=== PATIENT | female | born 1955 | race Caucasian/White ===

== ENCOUNTER → 2016-09-30 | Outpatient (CLI) | payer OTHER | END | disposition home or self-care (01) | LOC: LABPAT 12:52 | PROVIDERS: ATTEND Orthopaedic Surgery | DX: Z01.812 Encounter for preprocedural laboratory examination (principal) | CPT/HCPCS: 87070 ==

== ENCOUNTER 2016-10-19 08:00 | Inpatient (IN) | payer OTHER ==
[2016-10-26 11:53] VITALS: BMI 36.6
--- NOTE | 2016-11-01 17:28 | HP ---
DATE OF ADMISSION: 11/02/2016 CHIEF COMPLAINT: Left knee pain. HISTORY OF PRESENT ILLNESS: The patient is a 61-year-old female who has severe rheumatoid arthritis who presents with progressive left knee pain despite extensive conservative measures. She is using a cane. She notes her pain limits her normal function and activities. Past medical history is significant for rheumatoid arthritis, hypertension. Past surgical history is significant for: 1. Right patellar fracture fixation. 2. Right total knee arthroplasty. 3. Bilateral total hip arthroplasty. CURRENT MEDICATIONS: 1. Arava. 2. Ibuprofen. 3. Remicade. SHE DENIES DRUG ALLERGIES. FAMILY HISTORY: Significant for cancer. SOCIAL HISTORY: Negative for current tobacco or alcohol use. Sixteen-point review of systems otherwise reviewed and is noncontributory. On examination, the patient is approximately 5 feet 2 inches, 200 pounds of endomorphic habitus. HEENT exam is nonfocal. Neck is supple. She is nontender about the lumbar spine. She has painless passive motion of the left hip. Tcgegloz-jfa-fnleg is negative. Active motion of the left knee minus 10 to 85 degrees of flexion. She has a moderate effusion. Collaterals are stable, Maverick's negative. Vicki's is equivocal. She is tender about the medial joint line. Her distal neurovascular exam appears be intact in the left lower extremity. Previous x-rays of the left knee obtained in the office show severe medial compartment narrowing. IMPRESSION: Left knee severe rheumatoid arthritis. RECOMMENDATIONS: I talked to the patient at length regarding her treatment options. At this point she opts to proceed with surgery. We will plan to proceed with left total knee arthroplasty. She underwent preoperative medical evaluation by Dr. Don. We will institute DVT prophylaxis postoperatively.
[2016-11-02] MEDS ORDERED: ACETAMINOPHEN TAB 500 MG TAB PO ONE (05:00)
[2016-11-02] MEDS ORDERED: ceFAZolin 2 GM in SODIUM CHLORIDE 0.9% 100 ML IVPB ONE (05:00)
[2016-11-02] MEDS ORDERED: TRANEXAMIC ACID 1,000 MG in SODIUM CHLORIDE 0.9% 100 ML IVPB ONE ×4 (05:00)
[2016-11-02] MEDS ORDERED: MELOXICAM 7.5 MG TAB PO ONE (05:00)
[2016-11-02] MEDS ORDERED: HYDROmorphone 1 MG/ML 1 ML SYRINGE IVP PRN ×3 (05:34→18:06)
[2016-11-02] MEDS ORDERED: ONDANSETRON 4 MG/2 ML VIAL IVP ONE (05:34)
[2016-11-02] MEDS ORDERED: MIDAZOLAM 2 MG/2 ML VIAL IV PRN (05:34)
[2016-11-02] MEDS ORDERED: DEXAMETHASONE SOD PHOSPHATE 10 MG/ML 1 ML VIAL IV ONE (05:34)
[2016-11-02] MEDS ORDERED: LIDOCAINE 1% 20 ML VIAL (10MG/ML) FOR IV START INTRADERMA PRN (05:34)
[2016-11-02] MEDS ORDERED: FAMOTIDINE 20 MG/2 ML VIAL IV PRN (05:34)
[2016-11-02] MEDS: LACTATED RINGERS 1,000 ML IV SCH (14:14)
[2016-11-02 14:16] VITALS: RESP 16
[2016-11-02] MEDS ORDERED: ROPIVACAINE 1,100 MG, SODIUM CHLORIDE 0.9% 330 ML MISCELLANE PRN ×2 (15:02)
--- NOTE | 2016-11-02 15:04 | P.ONQ ---
Anesthesiology Proc Note - PNB - Peripheral Nerve Block Performed Left Adductor Canal Infusion Time Out Performed: Yes Procedure Start Time: 14:50 Procedure Stop Time: 15:00 Indication: Acute Post-Operative Pain, Requested by physician Sedation Type: Awake Preparation: Sterile Dressing Position: Supine Needle Size: 100mm (4") Needle Gauge: 21 Technique: Ultrasound Injectate: 0.5% Ropivacaine (see comment for volume) (ropi .5% 15cc) Blood Aspirated: No Pain Paresthesia on Injection Noted: No Resistance on Injection: Normal Events: Uneventful and Well Tolerated
[2016-11-02] MEDS ORDERED: ROPIVACAINE 246.25 MG, EPINEPHrine 0.5 MG, KETOROLAC 30 MG, cloNIDine HCL/PF 80 MCG, WA... MISCELLANE ONE ×5 (15:40)
[2016-11-02] MEDS ORDERED: PROPOFOL 10 MG/ML 20 ML VIAL IV ONE (16:28)
[2016-11-02] MEDS ORDERED: MIDAZOLAM 2 MG/2 ML VIAL ONE (16:28)
[2016-11-02] MEDS ORDERED: fentaNYL (PF) 50 MCG/ML 2 ML AMP ONE (16:28)
[2016-11-02] MEDS ORDERED: SODIUM CHLORIDE 0.9% 100 ML BAG ONE (16:28)
[2016-11-02] MEDS ORDERED: TRANEXAMIC ACID 1,000 MG/10 ML VIAL ONE (16:28)
[2016-11-02] MEDS ORDERED: ceFAZolin 3,000 MG in SODIUM CHLORIDE 0.9% IRRIGATIO 3,000 ML IRRIGATION ONE (16:59)
[2016-11-02] MEDS ORDERED: LACTATED RINGERS 1,000 ML IV ONE ×2 (17:22)
[2016-11-02] MEDS ORDERED: MAGNESIUM HYDROXIDE 2,400 MG/10 ML CUP PO PRN (18:06)
[2016-11-02] MEDS ORDERED: NALOXONE 0.4 MG/ML 1 ML VIAL IV PRN (18:06)
[2016-11-02] MEDS ORDERED: ONDANSETRON 4 MG/2 ML VIAL IVP PRN (18:06)
[2016-11-02] MEDS ORDERED: traMADol 50 MG TAB PO PRN (18:06)
[2016-11-02] MEDS ORDERED: HYDROcodone/APAP 7.5-325MG 1 EACH TAB PO PRN (18:06)
--- NOTE | 2016-11-02 18:37 | P.OP ---
Date of Procedure: 11/02/16 Preoperative Diagnosis: Left knee severe rheumatoid arthritis-tricompartmental Postoperative Diagnosis: Same Procedure(s) Performed: Left total knee eeyrhvsufutn-vquygmht-rhtgghlp retaining Implants: Depuy Attune size 5 cemented femoral component, size 4 cemented tibial component , 9 mm articular surface, 29 mm cemented patellar component. Anesthesia: regional, local, spinal Surgeon: Tony Moreno Special Delivery Messenger #1: Adeel Gary Estimated Blood Loss (ml): 75 Pathology: other (Bone fragments) Condition: stable Disposition: PACU Indications for Procedure: The patient's a 61-year-old female with rheumatoid arthritis who presents with persistent progressive left knee pain despite conservative measures. A discussion of the risks and benefits of operative intervention versus continued conservative measures was made with patient. She opted to proceed with surgery. Operative risks to include infection, neurovascular injury, development of blood clots, possible component loosening, possible component failure and need for subsequent procedures was discussed with the patient. Informed consent was obtained. Operative Findings: Severe synovitis/arthritis Description of Procedure: The patient was brought to the operating room, and after induction of spinal anesthesia the left lower extremity was prepped and draped in normal fashion. The tourniquet was inflated to 270 mmHg. A longitudinal incision extending 3 finger breaths above the superior pole of patella extending to the medial aspect of the tibial tubercle was then made. The skin and subcutaneous tissues were divided sharply. Electrocautery was used for hemostasis. The medial soft tissues to include the superficial and deep portions of the medial collateral ligament were elevated subperiosteally. The patella was everted. A portion of the retropatellar fat pad was excised sharply. The knee was then flexed. A starting hole was made in the distal femur 1 cm anterior to the posterior cruciate ligament origin. An intramedullary guide was gently inserted planning on a 5 valgus distal cut with 9 mm distal resection. The cutting block was pinned in place. The distal cut was then made. The posterior referencing sizing guide was utilized. A felt size 5 was most appropriate. 3 of external rotation was built into the system and was verified off the trans-epicondylar axis and the posterior condyles. The cutting block was pinned in place. The anterior, posterior, and chamfer cuts were made. The bone fragments were removed. The notch cut was then made with the appropriate guide. A trial size 5 femoral component was placed and had good anterior to posterior and medial to lateral fit. The distal peg holes were drilled. The trial component was removed. Attention was then paid towards preparing the proximal tibia. An extra medullary guide was utilized in line with the tibial shaft and second metatarsal distally. I planned on 7 posterior slope. I planned on 6 mm resection from the medial compartment. The cutting block was pinned in place. The proximal tibial cut was made while protecting the posterior cruciate ligament. Bone was removed in one fragment. The remnants of the medial and lateral menisci were excised the capsule junction with electrocautery. The tibia sized most appropriate size 4. The trial femoral and tibial components were placed along with a 9 mm articular surface. I was able to obtain full flexion and extension with good stability with varus and valgus stress. After several flexion and extension cycles the tibial rotation was marked with electrocautery in line with the medial one third of the tibial tubercle. Attention was then paid towards preparing the patella. A patella reamer was utilized taking this down to 14 mm of bone stock. A good flush cut was made. The patella sized most appropriately 29 mm. The pedicles were drilled. The trial component was placed. The knee was taken through range of motion. I good patellofemoral tracking with no hands technique. The trial components were then removed. The flexion and extension gaps were checked and felt to be symmetric. The tibia was prepared in the appropriate rotation with the appropriate drill and keel punch. The bony surfaces were prepared with pulsatile lavage and dried. Ropivacaine was injected the posterior capsule. The tibial component was cemented in placed and was fully seated. Excess cement was removed. The femoral component was cemented in placed and was fully seated. Excess cement was removed. The trial 9 mm articular surface was placed and the knee was put in full extension. The patella component was cemented in place. Pulsatile lavage was again utilized. After the cement had sufficiently hardened, the knee was taken through range of motion felt to be stable in flexion and extension with varus and valgus stress. The trial 9 mm articular surface was removed and the final one inserted. This was fully seated. Care was taken to avoid soft tissue interposition. The medial parapatellar arthrotomy was closed with #2 Ethibond suture. A deep drain was placed exiting laterally. The tourniquet was deflated with approximate a 70 minutes total tourniquet time. The subcutaneous tissues were reapproximated with interrupted 2-0 Vicryl sutures. The skin was reapproximated with 3-0 subcuticular strata fix suture. Skin tape and adhesive was applied. A sterile dressing was applied. The patient was awoken from sedation and transferred to recovery room in good condition. Blood loss was estimated at 75 mL. No complications were incurred. Sponge and needle counts were correct at the end the case.
--- NOTE | 2016-11-02 19:51 | XR ---
EXAMINATION TYPE: XR knee limited LT DATE OF EXAM: 11/02/2016 7:16 PM COMPARISON: NONE HISTORY: Postoperative TECHNIQUE: AP and crosstable lateral images FINDINGS: Postoperative changes appreciated, no unexpected radiopaque foreign bodies. TKR appears osiel tomic. Bones and joints and soft tissues otherwise unremarkable. IMPRESSION: Postoperative study.
[2016-11-02] MEDS: HYDROcodone/APAP 7.5-325MG 1 EACH TAB PO PRN (22:33)
[2016-11-02] MEDS: SENNOSIDES-DOCUSATE SODIUM 1 EACH TAB PO SCH (22:33)
[2016-11-03] MEDS: ceFAZolin 2 GM in SODIUM CHLORIDE 0.9% 100 ML IVPB SCH ×2 (00:47→09:20)
[2016-11-03] MEDS: LACTATED RINGERS 1,000 ML IV SCH (00:53)
[2016-11-03] MEDS: HYDROcodone/APAP 7.5-325MG 1 EACH TAB PO PRN ×3 (07:33→19:14)
[2016-11-03 08:06] LABS: Basophils % (A) 0 %; CH 26.7; CHCM 30.2; Eosinophils % (A) 0 %; HCT 33.7 % (34.0-46.0); HDW 2.38; HGB 10.6 gm/dL (11.4-16.0); Hypochromasia Moderate; Luc # (Auto) 0.32; Luc % (Auto) 3; Lymphocytes # (A) 0.9 k/uL (1.0-4.8); Lymphocytes % (A) 8 %; MCH 27.9 pg (25.0-35.0); MCHC 31.4 g/dL (31.0-37.0); MCV 88.8 fL (80.0-100.0); Mean Platelet Volume 6.5; Monocytes # (A) 0.7 k/uL (0-1.0); Monocytes % (A) 6 %; Neutrophils # (A) 9.6 k/uL (1.3-7.7); Neutrophils % (A) 83 %; RDW 14.9 % (11.5-15.5); WBC 11.6 k/uL (3.8-10.6); WBC (Perox) 11.73
[2016-11-03] MEDS: FAMOTIDINE 20 MG TAB PO SCH (09:20)
[2016-11-03] MEDS: RIVAROXABAN 10 MG TAB PO SCH (09:20)
--- NOTE | 2016-11-03 09:27 | P.PN ---
Subjective pod 1; on q pump intact; catheter system in place; comfortable Objective - Vital Signs Vital signs: Vital Signs Temp 97 F L 11/03/16 07:00 Pulse 78 11/03/16 07:00 Resp 16 11/03/16 07:00 BP 115/56 11/03/16 07:00 Pulse Ox 94 L 11/03/16 07:00 Intake & Output 11/02/16 11/03/16 11/03/16 18:59 06:59 18:59 Intake Total 1801 500 Output Total 315 400 Balance 1486 100 Intake: IV 1801 Oral 500 Output: Urine 240 400 Uretheral (Schwartz) 400 Estimated Blood Loss 75 Other: Voiding Method Indwelling Catheter - Labs CBC & Chem 7: 11/03/16 07:18 Labs: Abnormal Lab Results - Last 24 Hours (Table) 11/03/16 Range/Units 07:18 WBC 11.6 H (3.8-10.6) k/uL Hgb 10.6 L (11.4-16.0) gm/dL Hct 33.7 L (34.0-46.0) % Neutrophils # 9.6 H (1.3-7.7) k/uL Lymphocytes # 0.9 L (1.0-4.8) k/uL
--- NOTE | 2016-11-03 11:38 | P.PN ---
Subjective Principal diagnosis: Status post left total knee arthroplasty Patient seen today resting in her hospital bed, she appears to be in no acute distress. She's not been up with physical therapy at this point. Her pain is well-controlled at this time. She denies any headaches, lightheadedness, chest pain. Objective - Vital Signs Vital signs: Vital Signs Temp 97 F L 11/03/16 07:00 Pulse 78 11/03/16 07:00 Resp 16 11/03/16 07:00 BP 115/56 11/03/16 07:00 Pulse Ox 94 L 11/03/16 07:00 Intake & Output 11/02/16 11/03/16 11/03/16 18:59 06:59 18:59 Intake Total 1801 500 Output Total 315 400 200 Balance 1486 100 -200 Intake: IV 1801 Oral 500 Output: Urine 240 400 200 Uretheral (Schwartz) 400 200 Estimated Blood Loss 75 Other: Voiding Method Indwelling Catheter - Exam Left lower extremity: Incision is clean, dry and intact. There is dried blood noted at the distal and the incision on the bandage. Anterior posterior compression of the upper leg are soft, calf is supple, no tenderness with palpation. Sensory exam light touch throughout the extremity is intact. Plantar flexion, dorsiflexion, EHL, FHL are intact. Dorsal pedis pulses 2+ - Labs CBC & Chem 7: 11/03/16 07:18 Labs: Abnormal Lab Results - Last 24 Hours (Table) 11/03/16 Range/Units 07:18 WBC 11.6 H (3.8-10.6) k/uL Hgb 10.6 L (11.4-16.0) gm/dL Hct 33.7 L (34.0-46.0) % Neutrophils # 9.6 H (1.3-7.7) k/uL Lymphocytes # 0.9 L (1.0-4.8) k/uL Assessment and Plan Plan: Assessment: 1. Postop day #1 status post left total knee arthroplasty Plan: 1. Pain control, continue supportive oral medication 2. Discontinue urinary catheter 3. Continue work with therapy/CPM use 4. Daily dressing changes/ice and elevate 5. GI and DVT prophylaxis, continue current medication 6. Medical recommendations 7. Discharge planning: Patient will be likely discharged home tomorrow Time with Patient: Less than 30
--- NOTE | 2016-11-03 11:43 | P.DS ---
Providers Date of admission: 11/02/16 13:09 Expected date of discharge: 11/04/16 Attending physician: Tony Moreno Consults: 11/02/16 18:06 Consult Physician Routine Consulting Provider: Natalie Umanzor Consult Reason/Comments: Medical Management Do you want consulting provider notified?: Yes Primary care physician: Sina [facility] Hospital Course: Date of admission: 11/02/2016 Date of discharge: 11/04/2016 Admission diagnosis: Status post left total knee arthroplasty Discharge diagnosis: Same Attending physician: Dr. Moreno Surgical procedures: Left total knee arthroplasty Brief history: Patient is a 61-year-old female with a history of progressive rheumatoid arthritis. At this point patient has failed conservative outpatient treatment and was scheduled for an elective left total knee arthroplasty. Hospital course: Details of patient's surgery can be found in operative report. Patient tolerated the procedure well and was subsequently transported to orthopedic floor. Patient's orthopeidc and medical care was provided daily. Patient had daily laboratory tests performed for evaluation of overall blood counts. Patient had daily physical therapy to include strengthening range of motion as well as education with walker ambulation. Patient was treated with Xarelto for their postoperative DVT prophylaxis during their inpatient stay. Patient was noted to have a relatively uneventful postoperative course. Patient reported satisfactory pain control with oral pain medications by postoperative day 0. Patient showed satisfactory progress with physical therapy. Patient moved steadily through the program and had no difficulty meeting the goals by postoperative day 2. Given patient's otherwise satisfactory course and having met physical therapy goals, plan is to discharge patient home on postoperative day 2. Discharge condition/disposition: Patient will be discharged home in stable condition. Discharge medications: Instructions are given on resumption of patient's normal daily medications per primary care recommendation, in addition patient will be prescribed [place] 7.5 mg/325 mg, Colace 100 mg, Pepcid 20 mg, Xarelto 10 mg. Discharge instructions: 1. Wound care and infection precautions, keep incision dry and covered while showering, no lotions, creams, moisturizers. No soaking, tubs, pools, hottubs. Do not scrub over the incision. 2. Weight-bear as tolerated with walker / cane until follow-up. 3. Ice and elevate when necessary. Do not exceed 20 minutes per hour with ice pack. 4. Utilize compression sleeve until seen at first follow up appointment. 5. Visiting nursing care. 6. Home physical therapy including home CPM. 7. Pain meds and anticoagulants per prescription. 8. Pain medication has potential to cause constipation. Increase oral fluid and fiber intake. Contact primary care provider if you have not had a bowel movement within 48 hours after discharge 9. No anti-inflammatory medication until discussed at first post operative visit, this including Motrin, Aleve, Mobic, Diclofenac. 10. Follow up in office at 2 weeks postop with Trent Gary PA-C 11. Follow up with your primary care doctor 7-10 days after discharge. 12. Contact [facility] with any questions, . Procedures: Left total knee arthroplasty Patient Condition at Discharge: Good Plan - Discharge Summary New Discharge Prescriptions: Docusate [Colace] 100 mg PO DAILY #30 capsule Famotidine [Pepcid] 20 mg PO DAILY #30 tablet HYDROcodone/APAP 7.5-325MG [[place] 7.5] 1 - 2 each PO Q6HR PRN #60 tab PRN Reason: Pain Rivaroxaban [Xarelto] 10 mg PO DAILY #12 tab Discharge Medication List Leflunomide [Arava] 20 mg PO DAILY #0 10/23/15 [Rx] Metoprolol Succinate (ER) [Toprol XL] 12.5 mg PO QAM 11/19/15 [History] amLODIPine BESYLATE [Norvasc] 5 mg PO QAM 11/19/15 [History] inFLIXimab [Remicade] 500 mg IV Q28D 10/26/16 [History] Acetaminophen [Tylenol] 325 mg PO DIRECTED PRN 11/02/16 [History] Hydrocodone/Acetaminophen [[place] 5-325] 2 tab PO Q4HR PRN 11/02/16 [History] Rivaroxaban [Xarelto] 10 mg PO DAILY #12 tab 11/02/16 [Rx] Docusate [Colace] 100 mg PO DAILY #30 capsule 11/04/16 [Rx] Famotidine [Pepcid] 20 mg PO DAILY #30 tablet 11/04/16 [Rx] HYDROcodone/APAP 7.5-325MG [[place] 7.5] 1 - 2 each PO Q6HR PRN #60 tab 11/04/16 [ Rx] Follow up Appointment(s)/Referral(s): Sina Don MD [Primary Care Provider] - 1 Week Adeel Gary PAC [PHYSICIAN FIBERGLASS MACHINE OPERATOR] - 2 Weeks [facility] Visiting Nurse, [NON-STAFF] - 1 Week Patient Instructions/Handouts: Knee Replacement (DC) Activity/Diet/Wound Care/Special Instructions: call [facility] when you get home to have your CPM delivered. Orthopedic Discharge Instructions: 1. Wound care and infection precautions, keep incision dry and covered while showering, no lotions, creams, moisturizers. No soaking, pools, hot tubs. Do not scrub over incision. 2. Weight-bear as tolerated with walker / cane until follow-up. 3. Ice and elevate when necessary. Do not exceed 20 minutes per hour with ice pack. 4. Utilize compression sleeve until seen at first follow up appointment. 5. Visiting nursing care. 6. Home physical therapy. 7. Pain meds and anticoagulants per prescription. 8. Pain medication has potential to cause constipation. Increase oral fluid and fiber intake. Contact primary care provider if you have not had a bowel movement within 48 hours after discharge. 9. No anti-inflammatory medication until discussed at first post operative visit, this including Motrin, Aleve, Mobic, Diclofenac. 10. Follow up in office at 2 weeks postop with Trent Gary PA-C 11. Follow up with your primary care doctor 7-10 days after discharge. 12. Contact [facility] with any questions, . Discharge Disposition: HOME WITH HOME HEALTH SERVICES
[2016-11-03] MEDS: amLODIPine 5 MG TAB PO SCH (12:24)
[2016-11-03] MEDS: METOPROLOL SUCCINATE (ER) 25 MG TAB.ER.24H PO SCH (12:25)
[2016-11-03] MEDS: hydrOXYzine PAMOATE 25 MG CAP PO PRN ×2 (13:03→19:14)
--- NOTE | 2016-11-03 15:50 | P.CONS ---
History of Present Illness - Reason for Consult Consult date: 11/03/16 Medical management - History of Present Illness This is a 61-year-old female patient of Dr. Bhanu mckeon with a past medical history for hypertension, osteoarthritis, rheumatoid arthritis usually on Remicade which is on hold and follows with Dr. Valverde, kidney stones. Patient was admitted under the care of Dr. Moreno and she is status post left total knee arthroplasty done on 411. Patient has had no postop complications. She is planning to go home tomorrow. Review of Systems All systems: negative Constitutional: Denies chills, Denies fever Eyes: denies blurred vision, denies pain Ears, nose, mouth and throat: Denies headache, Denies sore throat Cardiovascular: Denies chest pain, Denies shortness of breath Respiratory: Denies cough Gastrointestinal: Denies abdominal pain, Denies diarrhea, Denies nausea, Denies vomiting Genitourinary: Denies dysuria, Denies hematuria Musculoskeletal: Denies myalgias Musculoskeletal: left: knee pain Integumentary: Denies pruritus, Denies rash Neurological: Denies numbness, Denies weakness Psychiatric: Denies anxiety, Denies depression Endocrine: Denies fatigue, Denies weight change Past Medical History Past Medical History: Hypertension, Osteoarthritis (OA), Rheumatoid Arthritis ( RA) Additional Past Medical History / Comment(s): KIDNEY STONE,STEROID INJECTION NOVEMBER 2015,SINUS PROBLEMS History of Any Multi-Drug Resistant Organisms: None Reported Past Surgical History: Section, Joint Replacement, Orthopedic Surgery, Tonsillectomy Additional Past Surgical History / Comment(s): RT KNEE SURG-PINS & WIRES PLACED -1999,LT ELVIRA 2013,Plates in R ankle in 2010, 10/2014 LT ELVIRA, RT TKA,. COLONOSCOPY, KIDNEY STONE REMOVED Past Anesthesia/Blood Transfusion Reactions: No Reported Reaction Past Psychological History: No Psychological Hx Reported Smoking Status: Never smoker Past Alcohol Use History: None Reported Additional Past Alcohol Use History / Comment(s): She is a lifelong nonsmoker, no medical marijuana, marijuana, street drug or alcohol use. Past Drug Use History: None Reported - Past Family History Father Additional Family Medical History / Comment(s): Father is alive at age 88 with history of coronary artery disease and macular degeneration. Mother Family Medical History: Cancer Additional Family Medical History / Comment(s): Mother at age 74 from thyroid cancer which had metastasized to her lungs. Brother(s) Additional Family Medical History / Comment(s): His 1 brother that from drug use. One brother is alive with no major medical problems. Patient does not have any sisters. Patient has twin daughters age 32 with no major medical problems. Medications and Allergies Home Medications Medication Instructions Recorded Confirmed Type Metoprolol Succinate (ER) [Toprol 12.5 mg PO QAM 11/19/15 11/02/16 History XL] amLODIPine BESYLATE [Norvasc] 5 mg PO QAM 11/19/15 11/02/16 History inFLIXimab [Remicade] 500 mg IV Q28D 10/26/16 11/02/16 History Acetaminophen [Tylenol] 325 mg PO DIRECTED PRN 11/02/16 11/02/16 History Hydrocodone/Acetaminophen [[place] 2 tab PO Q4HR PRN 11/02/16 11/02/16 History 5-325] Allergies Allergy/AdvReac Type Severity Reaction Status Date / Time adhesive AdvReac Mild blisters Verified 11/02/16 13:44 skin Physical Exam Vitals: Vital Signs Temp Pulse Pulse Resp BP Pulse Ox 11/03/16 15:00 97.2 F L 63 16 112/62 95 11/03/16 07:00 97 F L 78 16 115/56 94 L 11/03/16 02:00 97.4 F L 52 L 16 104/66 96 11/02/16 22:00 84 137/71 98 11/02/16 21:45 85 158/72 98 11/02/16 21:30 60 129/64 99 11/02/16 21:15 71 115/78 95 11/02/16 21:00 71 111/64 94 L 11/02/16 20:45 71 114/67 97 11/02/16 20:30 72 120/61 94 L 11/02/16 20:15 76 125/68 94 L 11/02/16 20:00 75 127/72 95 11/02/16 19:14 77 16 119/60 96 11/02/16 18:59 77 16 130/59 91 L 11/02/16 18:44 78 16 122/58 99 11/02/16 18:29 97.2 F L 82 16 121/57 94 L Intake and Output 11/03/16 11/03/16 11/03/16 06:59 14:59 22:59 Intake Total 500 740 Output Total 400 200 Balance 100 540 Intake: Oral 500 740 Output: Urine 400 200 Uretheral (Schwartz) 400 200 Gen: This is a 61-year-old female. She is found sitting up in a chair and appears to be in no acute distress. HEENT: Head is atraumatic, normocephalic. Pupils equal, round. Sclerae is anicteric. NECK: Supple. No JVD. No lymphadenopathy. No thyromegaly. LUNGS: Clear to auscultation. No wheezes or rhonchi. No intercostal retractions. HEART: Regular rate and rhythm. No murmur. ABDOMEN: Soft. Bowel sounds are present. No masses. No tenderness. EXTREMITIES: No pedal edema. No calf tenderness. Small dressing in place to the left knee with ice pack. No breakthrough drainage or bleeding. Q pump intact. NEUROLOGICAL: Patient is awake, alert and oriented x3. Cranial nerves 2 through 12 are grossly intact. Results CBC & Chem 7: 11/03/16 07:18 Labs: Abnormal Lab Results - Last 24 Hours (Table) 11/03/16 Range/Units 07:18 WBC 11.6 H (3.8-10.6) k/uL Hgb 10.6 L (11.4-16.0) gm/dL Hct 33.7 L (34.0-46.0) % Neutrophils # 9.6 H (1.3-7.7) k/uL Lymphocytes # 0.9 L (1.0-4.8) k/uL Assessment and Plan Plan: 1. Osteoarthritis left knee status post total knee arthroplasty with Dr. Moreno. No postop complications. Continue current pain management. Continue physical therapy. 2. History of rheumatoid arthritis on Remicade which is currently on hold. Patient follow-up with verification engineer as planned. 3. Hypertension. Continue Norvasc and Toprol. 4. DVT prophylaxis. Patient is on Xarelto. Discharge plan: Home tomorrow Impression and plan of care have been directed as dictated by the signing physician. Christelle Whitlock nurse practitioner acting as scribe for signing physician. Time with Patient: Greater than 30
[2016-11-03] MEDS: SENNOSIDES-DOCUSATE SODIUM 1 EACH TAB PO SCH (21:24)
[2016-11-04] MEDS: LACTATED RINGERS 1,000 ML IV SCH ×2 (00:36→12:05)
[2016-11-04] MEDS: HYDROcodone/APAP 7.5-325MG 1 EACH TAB PO PRN ×3 (00:38→10:42)
[2016-11-04 07:22] VITALS: BP 116/63; PULSE 71; TEMP 97.2
[2016-11-04] MEDS: RIVAROXABAN 10 MG TAB PO SCH (07:38)
[2016-11-04] MEDS: FAMOTIDINE 20 MG TAB PO SCH (07:38)
[2016-11-04] MEDS: METOPROLOL SUCCINATE (ER) 25 MG TAB.ER.24H PO SCH (07:38)
[2016-11-04] MEDS: amLODIPine 5 MG TAB PO SCH (07:38)
--- NOTE | 2016-11-04 08:36 | P.PN ---
Progress Note - Text The patient is status post left adductor canal catheter placement. The catheter was placed for postoperative pain control, status post total left arthroplasty. Ropivacaine 0.2% is infusing at 10 mLs per hour. The patient has no complaints of left lower extremity numbness or weakness. Patient's VAS score is2-10. Assessment: Patient's adductor canal catheter is in place and working appropriately. Plan: continue infusion and adjust it as needed.
--- NOTE | 2016-11-04 09:48 | P.PN ---
Subjective Principal diagnosis: Status post left total knee arthroplasty Patient seen today resting in her hospital bed, she appears to be in no acute distress. Her pain is well-controlled at this time. She denies any headaches, lightheadedness, chest pain. Objective - Vital Signs Vital signs: Vital Signs Temp 97.2 F L 11/04/16 07:21 Pulse 71 11/04/16 08:00 Resp 16 11/04/16 08:00 BP 116/63 11/04/16 07:21 Pulse Ox 95 11/04/16 07:21 Intake & Output 11/03/16 11/04/16 11/04/16 18:59 06:59 18:59 Intake Total 1240 100 Output Total 200 800 Balance 1040 -700 Weight 90.718 kg Intake: Oral 1240 100 Output: Urine 200 800 Uretheral (Schwartz) 200 Other: Voiding Method Toilet Toilet # Voids 1 - Exam Left lower extremity: Incision is clean, dry and intact. There is dried blood noted at the distal and the incision on the bandage. Anterior posterior compression of the upper leg are soft, calf is supple, no tenderness with palpation. Sensory exam light touch throughout the extremity is intact. Plantar flexion, dorsiflexion, EHL, FHL are intact. Dorsal pedis pulses 2+ - Labs CBC & Chem 7: 11/03/16 07:18 Assessment and Plan Plan: Assessment: 1. Postop day #2 status post left total knee arthroplasty Plan: 1. Pain control, continue oral medication 2. Discontinue urinary catheter 3. Continue work with therapy/CPM use 4. Daily dressing changes/ice and elevate 5. GI and DVT prophylaxis, continue current medication 6. Medical recommendations 7. Discharge planning: Patient will be discharged home today Time with Patient: Less than 30
--- NOTE | 2016-11-04 14:08 | P.PN ---
Subjective This is a 61-year-old female patient of Dr. Don with a past medical history for hypertension, osteoarthritis, rheumatoid arthritis usually on Remicade which is on hold and follows with Dr. Valverde, kidney stones. Patient was admitted under the care of Dr. Moreno and she is status post left total knee arthroplasty done on 11/02. Patient has had no postop complications. She is planning to go home tomorrow. 11/04:: Patient continues have no postoperative complications. She has worked well with physical therapy. She is scheduled for discharge home today in stable condition. Objective - Vital Signs Vital signs: Vital Signs Temp 97.2 F L 11/04/16 07:21 Pulse 71 11/04/16 08:00 Resp 16 11/04/16 08:00 BP 116/63 11/04/16 07:21 Pulse Ox 95 11/04/16 07:21 Intake & Output 11/03/16 11/04/16 11/04/16 18:59 06:59 18:59 Intake Total 1240 100 500 Output Total 200 800 Balance 1040 -700 500 Weight 90.718 kg Intake: Oral 1240 100 500 Output: Urine 200 800 Uretheral (Schwartz) 200 Other: Voiding Method Toilet Toilet # Voids 1 - Exam Gen: This is a 61-year-old female. She is found sitting up in a chair and appears to be in no acute distress. HEENT: Head is atraumatic, normocephalic. Pupils equal, round. Sclerae is anicteric. NECK: Supple. No JVD. No lymphadenopathy. No thyromegaly. LUNGS: Clear to auscultation. No wheezes or rhonchi. No intercostal retractions. HEART: Regular rate and rhythm. No murmur. ABDOMEN: Soft. Bowel sounds are present. No masses. No tenderness. EXTREMITIES: No pedal edema. No calf tenderness. Small dressing in place to the left knee with ice pack. No breakthrough drainage or bleeding. Q pump intact. NEUROLOGICAL: Patient is awake, alert and oriented x3. Cranial nerves 2 through 12 are grossly intact. - Labs CBC & Chem 7: 11/03/16 07:18 Assessment and Plan Plan: 1. Osteoarthritis left knee status post total knee arthroplasty with Dr. Moreno. No postop complications. Continue current pain management. Continue physical therapy. 2. History of rheumatoid arthritis on Remicade which is currently on hold. Patient follow-up with tube bender as planned. 3. Hypertension. Continue Norvasc and Toprol. 4. DVT prophylaxis. Patient is on Xarelto. Discharge plan: Home Impression and plan of care have been directed as dictated by the signing physician. Christelle Whitlock nurse practitioner acting as scribe for signing physician. CC: Dr. Sina Don Time with Patient: Greater than 30
== END 2016-11-04 14:00 | disposition home health service (06) | DRG 470 ==
LOC: 2ORMAIN 11-02 13:09 → 3SUR 11-02 18:04
PROVIDERS: ADMIT Orthopaedic Surgery; ATTEND Orthopaedic Surgery
PROC: 0SRD0J9 Replacement of Left Knee Joint with Synthetic Substitute, Cemented, Open Approach (ICD-10-PCS; principal; 2016-11-02 15:35)
DX: M06.862 Other specified rheumatoid arthritis, left knee (principal); I10 Essential (primary) hypertension; M19.90 Unspecified osteoarthritis, unspecified site; M65.862 Other synovitis and tenosynovitis, left lower leg; Z79.899 Other long term (current) drug therapy; Z82.49 Family history of ischemic heart disease and other diseases of the circulatory system; Z87.442 Personal history of urinary calculi; Z96.643 Presence of artificial hip joint, bilateral; Z79.1 Long term (current) use of non-steroidal anti-inflammatories (NSAID)
CPT/HCPCS: 85025; 88300

== ENCOUNTER → 2016-11-30 | Outpatient (CLI) | payer OTHER ==
[~2016-11-30] MED LIST: SODIUM CHLORIDE 0.9% 250 ML in EMPTY BAG 1 BAG IV PRN; SODIUM CHLORIDE 0.9% 500 ML in EMPTY BAG 1 BAG IV PRN
[2016-11-30 10:23] VITALS: RESP 16; TEMP 97.9
[2016-11-30 11:52] VITALS: BP 121/57; PULSE 74
== END | disposition home or self-care (01) ==
LOC: PROCWHC3 09:45
PROVIDERS: ATTEND Internal Medicine Rheumatology
DX: M05.79 Rheumatoid arthritis with rheumatoid factor of multiple sites without organ or systems involvement (principal)
CPT/HCPCS: 96413; 96415; J1745

== ENCOUNTER → 2017-01-04 | Outpatient (CLI) | payer OTHER ==
[2017-01-04 11:04] VITALS: RESP 15; TEMP 97.8
[2017-01-04 12:21] VITALS: BP 134/74; PULSE 72
== END | disposition home or self-care (01) ==
LOC: PROCWHC3 10:22
PROVIDERS: ATTEND Internal Medicine Rheumatology
DX: M05.79 Rheumatoid arthritis with rheumatoid factor of multiple sites without organ or systems involvement (principal)
CPT/HCPCS: 96413; 96415; J1745

== ENCOUNTER → 2018-12-04 | Outpatient (CLI) | payer OTHER ==
--- NOTE | 2018-12-04 08:56 | MM ---
Reason for exam: screening (asymptomatic). Baseline mammogram. History: Patient is postmenopausal. Physical Findings: Nurse did not find any significant physical abnormalities on exam. MG Screening Mammo w CAD Bilateral CC and MLO view(s) were taken. The breast tissue is heterogeneously dense. This may lower the sensitivity of mammography. Areas of global asymmetries on both sides. No comparisons available. These results were verbally communicated with the patient and result sheet given to the patient on 12/04/18. ASSESSMENT: Incomplete: need additional imaging evaluation, BI-RAD 0 RECOMMENDATION: Special view mammogram of both breasts.
--- NOTE | 2018-12-04 08:57 | MM ---
Reason for exam: additional evaluation requested from abnormal screening. History: Patient is postmenopausal. Physical Findings: Breast exam preformed at baseline screening. MG Work Up Mamm w CAD BILAT Bilateral spot compression CC and spot compression MLO view(s) were taken. Areas of global asymmetry show no persisting mass or other abnormality on compression views. These results were verbally communicated with the patient and result sheet given to the patient on 12/04/18. ASSESSMENT: Benign, BI-RAD 2 RECOMMENDATION: Return to routine screening mammogram schedule for both breasts.
== END | disposition home or self-care (01) ==
LOC: RADMAMWWP 07:09
PROVIDERS: ATTEND Family Medicine
DX: Z12.31 Encounter for screening mammogram for malignant neoplasm of breast (principal); R92.8 Other abnormal and inconclusive findings on diagnostic imaging of breast
CPT/HCPCS: 77066; 77067

== ENCOUNTER 2021-06-09 13:28 | Emergency (ER) | payer MEDICARE, OTHER ==
[2021-06-09 14:15] VITALS: TEMP 99.5
[2021-06-09] MEDS ORDERED: KETOROLAC 30 MG/ML 1 ML VIAL IVP STA (16:17)
[2021-06-09 17:18] LABS: Basophils % (A) 0 %; Eosinophils # (A) 0.1 k/uL (0-0.7); Eosinophils % (A) 0 %; HCT 48.5 % (34.0-46.0); HGB 15.1 gm/dL (11.4-16.0); Lymphocytes # (A) 1.4 k/uL (1.0-4.8); Lymphocytes % (A) 8 %; MCH 28.9 pg (25.0-35.0); MCHC 31.2 g/dL (31.0-37.0); MCV 92.9 fL (80.0-100.0); Monocytes # (A) 0.9 k/uL (0-1.0); Monocytes % (A) 5 %; Neutrophils % (A) 85 %; Platelet Count 588 k/uL (150-450); RBC 5.22 m/uL (3.80-5.40); RDW 13.5 % (11.5-15.5); WBC 16.6 k/uL (3.8-10.6)
[2021-06-09 17:34] LABS: ALT 25 U/L (4-34); AST 18 U/L (14-36); African American GFR (CKD) >90 (>60 ml/min/1.73 sqM); Albumin 4.1 g/dL (3.5-5.0); Alkaline Phosphatase 88 U/L (38-126); Anion Gap 9 mmol/L; Blood Urea Nitrogen 17 mg/dL (7-17); Calcium 10.1 mg/dL (8.4-10.2); Carbon Dioxide 24 mmol/L (22-30); Chloride 106 mmol/L (98-107); Glucose 117 mg/dL (74-99); Non-African American GFR(CKD) >90 (>60 ml/min/1.73 sqM); Potassium 4.9 mmol/L (3.5-5.1); Sodium 139 mmol/L (137-145); Total Bilirubin 0.6 mg/dL (0.2-1.3); Total Protein 7.2 g/dL (6.3-8.2)
[2021-06-09 17:55] LABS: Appearance,Urine Clear (Clear); Bacteria,Urine Rare /hpf; Bilirubin,Urine Negative (Negative); Blood,Urine Large (Negative); Budding Yeast,Urine Occasional /hpf; Color,Urine Yellow; Glucose,Urine (UA) Negative (Negative); Ketones,Urine Negative (Negative); Leukocyte Esterase,Urine Small (Negative); Mucus,Urine Moderate /hpf; Nitrite,Urine Negative (Negative); Protein,Urine 1+ (Negative); RBC,Urine >182 /hpf (0-5); Specific Gravity,Urine 1.019 (1.001-1.035); Squamous Epithelial Cell,Urine <1 /hpf (0-4); Urobilinogen,Urine <2.0 mg/dL (<2.0); WBC,Urine 23 /hpf (0-5)
--- NOTE | 2021-06-09 17:57 | XR ---
EXAMINATION TYPE: XR KUB DATE OF EXAM: 06/09/2021 5:09 PM CLINICAL HISTORY: Right flank pain. History of kidney stones. TECHNIQUE: Upright images of the abdomen and pelvis were obtained COMPARISON: 12/31/2015. FINDINGS: Nonspecific bowel gas pattern with a paucity of small bowel gas. There are multiple calcifi cations overlying the bilateral renal shadows, which are increased in number versus 2016 comparison. At least 3 calcifications overlie the right renal shadow measuring between 13 and 17 mm. There are at least 4 calcifications overlying the left renal shadow measuring between 4 and 14 mm. No pneumoperit oneum. Degenerative changes of the lumbar spine. Incompletely visualized bilateral hip prostheses wit h dystrophic calcifications. Lung bases are clear. IMPRESSION: 1. Bilateral nephrolithiasis, increased in number versus 2016 comparison. 2. Nonspecific bowel gas pattern.
[2021-06-09] MEDS ORDERED: cefTRIAXone IN SWFI 1,000 MG/10 ML SYRINGE IVP STA (17:59)
--- NOTE | 2021-06-09 18:07 | ED ---
General Adult HPI - General Chief complaint: Back Pain/Injury Stated complaint: Back Pain Time Seen by Provider: 06/09/21 16:08 Source: patient, family, RN notes reviewed Mode of arrival: ambulatory - History of Present Illness Initial comments: Patient is a 66-year-old female that presents to emergency department with right back/flank pain. She notes that she had a pretty intense pain for approximately 2 hours prior to arrival. But upon physical exam and evaluation patient notes she is comfortable while sitting up in bed in no apparent distress. She notes she does have a history of kidney stones and kidney infection. Patient came to get evaluated. She denied any other issues or complaints. She was otherwise well-appearing. She denied chest pain shortness of breath headache nausea vomiting diarrhea constipation fever fatigue chills. - Related Data Home Medications Medication Instructions Recorded Confirmed Ibuprofen 600 mg PO TID PRN 12/19/18 06/09/21 Hydroxychloroquine Sulfate 200 mg PO BID 06/09/21 06/09/21 [Plaquenil] Pregabalin [Lyrica] 75 mg PO HS 06/09/21 06/09/21 predniSONE 10 mg PO DAILY 06/09/21 06/09/21 Previous Rx's Medication Instructions Recorded Cephalexin [Keflex] 500 mg PO Q6HR #40 cap 06/09/21 Ketorolac [Toradol] 10 mg PO Q8HR #15 tab 06/09/21 Tamsulosin [Flomax] 0.4 mg PO DAILY #7 cap 06/09/21 Allergies Allergy/AdvReac Type Severity Reaction Status Date / Time adhesive AdvReac Mild blisters Verified 06/09/21 16:57 skin Review of Systems ROS Statement: Those systems with pertinent positive or pertinent negative responses have been documented in the HPI. ROS Other: All systems not noted in ROS Statement are negative. Past Medical History Past Medical History: Hypertension, Osteoarthritis (OA), Rheumatoid Arthritis (RA) Additional Past Medical History / Comment(s): KIDNEY STONE,STEROID INJECTION NOVEMBER 2015,SINUS PROBLEMS History of Any Multi-Drug Resistant Organisms: None Reported Past Surgical History: Section, Joint Replacement, Orthopedic Surgery, Tonsillectomy Additional Past Surgical History / Comment(s): RT KNEE SURG-PINS & WIRES PLACED -1999,LT ELVIRA 2013,Plates in R ankle in 2010, 10/2014 LT ELVIRA, RT TKA,. COLONOSCOPY, KIDNEY STONE REMOVED, L total knee 11/08 Past Anesthesia/Blood Transfusion Reactions: No Reported Reaction Past Psychological History: No Psychological Hx Reported Smoking Status: Never smoker Past Alcohol Use History: None Reported Past Drug Use History: None Reported - Past Family History Father Additional Family Medical History / Comment(s): Father is alive at age 88 with history of coronary artery disease and macular degeneration. Brother(s) Additional Family Medical History / Comment(s): His 1 brother that from drug use. One brother is alive with no major medical problems. Patient does not have any sisters. Patient has twin daughters age 32 with no major medical problems. Mother Family Medical History: Cancer Additional Family Medical History / Comment(s): Mother at age 74 from thyroid cancer which had metastasized to her lungs. General Exam General appearance: alert, in no apparent distress Head exam: Present: atraumatic, normocephalic, normal inspection Eye exam: Present: normal appearance, PERRL, EOMI. Absent: scleral icterus, conjunctival injection, periorbital swelling ENT exam: Present: normal exam, mucous membranes moist Neck exam: Present: normal inspection Respiratory exam: Present: normal lung sounds bilaterally. Absent: respiratory distress, wheezes, rales, rhonchi, stridor Cardiovascular Exam: Present: regular rate, normal rhythm, normal heart sounds. Absent: systolic murmur, diastolic murmur, rubs, gallop, clicks GI/Abdominal exam: Present: soft, normal bowel sounds. Absent: distended, tenderness, guarding, rebound, rigid Extremities exam: Present: normal inspection, full ROM, normal capillary refill. Absent: tenderness, pedal edema, joint swelling, calf tenderness Back exam: Present: normal inspection, full ROM. Absent: tenderness Neurological exam: Present: alert, oriented X3 Psychiatric exam: Present: normal affect, normal mood Skin exam: Present: warm, dry, intact, normal color. Absent: rash Course Vital Signs 06/09/21 14:13 Temperature 99.5 F Pulse Rate 86 Respiratory 18 Rate Blood Pressure 140/82 O2 Sat by Pulse 98 Oximetry Medical Decision Making - Medical Decision Making 66 she'll female complaining of right flank/back pain. Labs, KUB, 15 mg of Toradol ordered. Labs: White blood cells 16.6, crit is a 182 red blood cells greater than 20 white blood cells in the urine consistent with urinary tract infection. KUB shows bilateral nephrolithiasis worse compared to 2016. Patient was given 1 g Rocephin and antibiotics sent to pharmacy. Case discussed with Dr. Goff, patient can discharge home. - Lab Data Result diagrams: 06/09/21 17:07 06/09/21 17:07 Lab Results 06/09/21 06/09/21 06/09/21 Range/Units 17:07 17:07 17:33 WBC 16.6 H (3.8-10.6) k/uL RBC 5.22 (3.80-5.40) m/uL Hgb 15.1 (11.4-16.0) gm/dL Hct 48.5 H (34.0-46.0) % MCV 92.9 (80.0-100.0) fL MCH 28.9 (25.0-35.0) pg MCHC 31.2 (31.0-37.0) g/dL RDW 13.5 (11.5-15.5) % Plt Count 588 H (150-450) k/uL MPV 7.0 Neutrophils % 85 % Lymphocytes % 8 % Monocytes % 5 % Eosinophils % 0 % Basophils % 0 % Neutrophils # 14.0 H (1.3-7.7) k/uL Lymphocytes # 1.4 (1.0-4.8) k/uL Monocytes # 0.9 (0-1.0) k/uL Eosinophils # 0.1 (0-0.7) k/uL Basophils # 0.0 (0-0.2) k/uL Sodium 139 (137-145) mmol/L Potassium 4.9 (3.5-5.1) mmol/L Chloride 106 (98-107) mmol/L Carbon Dioxide 24 (22-30) mmol/L Anion Gap 9 mmol/L BUN 17 (7-17) mg/dL Creatinine 0.62 (0.52-1.04) mg/dL Est GFR (CKD-EPI)AfAm >90 (>60 ml/min/1.73 sqM) Est GFR (CKD-EPI)NonAf >90 (>60 ml/min/1.73 sqM) Glucose 117 H (74-99) mg/dL Calcium 10.1 (8.4-10.2) mg/dL Total Bilirubin 0.6 (0.2-1.3) mg/dL AST 18 (14-36) U/L ALT 25 (4-34) U/L Alkaline Phosphatase 88 (38-126) U/L Total Protein 7.2 (6.3-8.2) g/dL Albumin 4.1 (3.5-5.0) g/dL Urine Color Yellow Urine Appearance Clear (Clear) Urine pH 7.0 (5.0-8.0) Ur Specific Pope 1.019 (1.001-1.035) Urine Protein 1+ H (Negative) Urine Glucose (UA) Negative (Negative) Urine Ketones Negative (Negative) Urine Blood Large H (Negative) Urine Nitrite Negative (Negative) Urine Bilirubin Negative (Negative) Urine Urobilinogen <2.0 (<2.0) mg/dL Ur Leukocyte Esterase Small H (Negative) Urine RBC >182 H (0-5) /hpf Urine WBC 23 H (0-5) /hpf Ur Squamous Epith Cells <1 (0-4) /hpf Urine Bacteria Rare H (None) /hpf Urine Mucus Moderate H (None) /hpf Urine Yeast (Budding) Occasional H (None) /hpf - Radiology Data Radiology results: report reviewed, image reviewed KUB: Bilateral nephrolithiasis increased in number versus 2016. Nonspecific bowel gas pattern. Disposition Clinical Impression: Nephrolithiasis, Urinary tract infection Disposition: HOME SELF-CARE Condition: Stable Instructions (If sedation given, give patient instructions): Kidney Stones (ED) Additional Instructions: Please return to the Emergency Department if symptoms worsen or any other concerns. Follow-up with primary care 1-2 days. Take antibiotics as prescribed. Take Toradol and Flomax as prescribed. Is patient prescribed a controlled substance at d/c from ED?: No Referrals: Damian Rose MD [Primary Care Provider] - 1-2 days Time of Disposition: 18:07
[2021-06-09 18:20] VITALS: BP 142/70; PULSE 92; RESP 16
== END 2021-06-09 18:30 | disposition home or self-care (01) ==
LOC: EC 13:28
DX: N20.0 Calculus of kidney (principal); N39.0 Urinary tract infection, site not specified; I10 Essential (primary) hypertension; M06.9 Rheumatoid arthritis, unspecified; Z79.1 Long term (current) use of non-steroidal anti-inflammatories (NSAID); Z79.52 Long term (current) use of systemic steroids; Z79.899 Other long term (current) drug therapy; Z82.49 Family history of ischemic heart disease and other diseases of the circulatory system
CPT/HCPCS: 36415; 80053; 85025; 81001; 87086; 74018; 99284; 96374; 96375; J0696; J1885

== ENCOUNTER → 2021-11-20 | Outpatient (CLI) | payer MEDICARE, OTHER ==
--- NOTE | 2021-11-20 13:52 | CT ---
EXAMINATION TYPE: CT abdomen pelvis wo con DATE OF EXAM: 11/20/2021 COMPARISON: 11/19/2015 HISTORY: B/L kidney stones CT DLP: 1039 mGycm Automated exposure control for dose reduction was used. TECHNIQUE: Helical acquisition of images was performed from the lung bases through the pelvis. FINDINGS: The lung bases are clear. There are 2 large gallstones but the gallbladder is not distended and there is no wall thickening or pericholecystic fluid. There is no organomegaly involving the liver, pancreas or spleen or adrenal glands. There is a cyst o r hemangioma posterior segment of the right lobe of liver which is stable. The caliber of the abdominal aorta is normal. There is no retroperitoneal adenopathy or hemorrhage. T here is no pelvic adenopathy and there is a stable right adnexal cyst. There are bilateral hip prostheses. There are multiple renal calcifications of varying size bilaterally which overall have increased in n umber and size in the interval since the prior study with the exception of a 15 mm calcification in t he medial left kidney which has apparently resolved in the interval. The largest calcifications in th e right kidney range from approximately 10 to 15 mm and in the left kidney from 13 to 24 mm calcifica tions with the 24 mm calcification found in the lower pole of the left kidney. There are parapelvic c ysts. There is an exophytic cyst of the right kidney which is stable and there are no ureteral calcif ications. There is no free intraperitoneal air or fluid. The bowel loops are normal in caliber and there is no evidence of obstruction. IMPRESSION: 1. Marked bilateral renal calcifications which have increased significantly in the interval since the prior study. There is no definite hydronephrosis but there are parapelvic cysts. Stable exophytic cy st of the right 2. Gallstones 3. No bowel obstruction or free intraperitoneal air or fluid. 4. Stable low-density lesion in the posterior segment of the right lobe of liver which is well-circum scribed and most likely represents a benign hemangioma or cyst.
== END | disposition home or self-care (01) ==
LOC: RADCTMAIN 11:50
PROVIDERS: ATTEND Urology
DX: K80.20 Calculus of gallbladder without cholecystitis without obstruction (principal); N94.89 Other specified conditions associated with female genital organs and menstrual cycle; N28.89 Other specified disorders of kidney and ureter; N28.1 Cyst of kidney, acquired
CPT/HCPCS: 74176

== ENCOUNTER → 2021-12-01 | Outpatient (CLI) | payer MEDICARE, OTHER ==
[2021-12-01 14:18] LABS: Basophils # (A) 0.02 X 10*3/uL (0.00-0.10); Basophils % (A) 0.2 %; Eosinophils % (A) 1.2 %; HCT 38.9 % (37.2-46.3); HGB 11.6 g/dL (12.0-15.0); Immature Grans, Automated 0.5 %; Lymphocytes # (A) 1.46 X 10*3/uL (0.90-5.00); MCH 27.5 pg (27.0-32.0); MCHC 29.8 g/dL (32.0-37.0); MCV 92.2 fL (80.0-97.0); Mean Platelet Volume 9.6 fL (9.5-12.2); Monocytes # (A) 0.61 X 10*3/uL (0.20-1.00); Monocytes % (A) 7.1 %; NRBC Per 100 WBC 0 /100 WBCS (0.0-0.0); Neutrophils # (A) 6.35 X 10*3/uL (1.80-7.70); Platelet Count 478 X 10*3/uL (140-440); RBC 4.22 X 10*6/uL (4.10-5.20); RDW 13.8 % (11.5-14.5); WBC 8.58 X 10*3/uL (4.50-10.00)
[2021-12-01 14:29] LABS: African American GFR (CKD) 100.8 (60.0-200.0); Albumin 3.6 g/dL (3.8-4.9); Albumin/Globulin Ratio 1.21 (1.60-3.17); Anion Gap 12.5 mmol/L (10.00-18.00); BUN/Creat Ratio 14.68 Ratio (12.00-20.00); Blood Urea Nitrogen 10.6 mg/dL (9.0-27.0); Calcium 9.4 mg/dL (8.7-10.3); Carbon Dioxide 20.9 mmol/L (20.0-27.5); Potassium 3.6 mmol/L (3.5-5.5); Total Bilirubin 0.3 mg/dL (0.30-1.20); Total Protein 6.6 g/dL (6.2-8.2)
[2021-12-01 18:42] LABS: Appearance,Urine Turbid (Clear); Bacteria,Urine 2+ /HPF (None Seen); Bilirubin,Urine Negative (Negative); Blood,Urine Large (Negative); Calcium Oxalate Crystals,Urine Present /LPF (None Seen); Color,Urine Yellow (Yellow); Ketones,Urine Negative (Negative); Nitrite,Urine Negative (Negative); PH, Urine 5.5 (5.0-8.0); Specific Gravity,Urine 1.019 (1.001-1.030); Urobilinogen,Urine 0.2 (0.2,1.0)
== END | disposition home or self-care (01) ==
LOC: LABPAT 09:11
PROVIDERS: ATTEND Urology
DX: Z01.812 Encounter for preprocedural laboratory examination (principal); N20.0 Calculus of kidney
CPT/HCPCS: 80053; 81001; 85025; 87086

== ENCOUNTER 2021-12-09 06:44 | Day surgery (SDC) | payer MEDICARE, OTHER ==
[2021-12-07 13:14] VITALS: BMI 38.4
--- NOTE | 2021-12-08 21:00 | P.GSHP ---
History of Present Illness H&P Date: 12/08/21 66 yo female with a history of intermittent flank pain, r>l. She was evaluated and found to have bilateal large volume stone disease[> 3cm]. SHe came to see me. We discussed treatment options. She comes for a right PCNL. The risks and complications including infection, bleeding , pain, injury to the kidney and adjacent organs, failure to remove all the stone have been explained understood and accepted - Constitutional Constitutional: Denies chills, Denies fever - EENT Eyes: denies blurred vision, denies pain Ears, nose, mouth and throat: Denies headache, Denies sore throat - Cardiovascular Cardiovascular: Denies chest pain, Denies shortness of breath - Respiratory Respiratory: Denies cough, Denies 7 - Gastrointestinal Gastrointestinal: Denies abdominal pain, Denies diarrhea, Denies nausea, Denies vomiting - Genitourinary (Female) Genitourinary: Denies dysuria, Denies hematuria - Genitourinary (Male) Genitourinary: Denies dysuria, Denies hematuria - Musculoskeletal Musculoskeletal: Denies myalgias - Integumentary Integumentary: Denies pruritus, Denies rash - Neurological Neurological: Denies numbness, Denies weakness - Psychiatric Psychiatric: Denies anxiety, Denies depression - Endocrine Endocrine: Denies fatigue, Denies weight change Past Medical History Past Medical History: Hypertension, Osteoarthritis (OA), Rheumatoid Arthritis (RA) Additional Past Medical History / Comment(s): Current kidney stone, hx of kidney stone X1 other occasion. Sunus problems. No current medication needed for Hypertension. History of Any Multi-Drug Resistant Organisms: None Reported Past Surgical History: Section, Joint Replacement, Orthopedic Surgery, Tonsillectomy Additional Past Surgical History / Comment(s): RIGHT KNEE SURGERY WITH PINS & WIRES PLACED, BILATERAL HIP REPLACEMENTS, PLATES IN RIGHT ANKLE, BILATERAL KNEE REPLACEMENTS, COLONOSCOPY, KIDNEY STONE REMOVED. Past Anesthesia/Blood Transfusion Reactions: No Reported Reaction Past Psychological History: No Psychological Hx Reported Smoking Status: Never smoker Past Alcohol Use History: None Reported Past Drug Use History: None Reported - Past Family History Father Family Medical History: Coronary Artery Disease (CAD), Eye Disorder Additional Family Medical History / Comment(s): Macular degeneration. Brother(s) Family Medical History: No Reported History Additional Family Medical History / Comment(s): Has 1 brother that from drug use. One brother is alive with no major medical problems. Patient does not have any sisters. Patient has twin daughters with no major medical problems. Mother Family Medical History: Cancer Additional Family Medical History / Comment(s): Mother at age 74 from thyroid cancer which had metastasized to her lungs. Medications and Allergies Home Medications Medication Instructions Recorded Confirmed Type Ibuprofen 600 mg PO TID PRN 12/19/18 12/07/21 History Hydroxychloroquine Sulfate 200 mg PO BID 06/09/21 12/07/21 History [Plaquenil] Acetaminophen [Tylenol Extra 500 - 1,000 mg PO BID 12/07/21 12/07/21 History Strength] Orencia (Unknown Dose) 1 dose .ROUTE Q30D 12/07/21 12/07/21 History Allergies Allergy/AdvReac Type Severity Reaction Status Date / Time adhesive AdvReac Mild blisters Verified 12/07/21 12:58 skin Surgical - Exam - General well developed, well nourished, no distress - Eyes normal ocular movement, no icteric - ENT no hearing loss, no congestion - Neck no masses, trachea midline - Respiratory normal respiratory effort, clear to auscultation - Abdomen Abdomen: soft, non tender, no guarding, no rigid, no rebound - Integumentary no rash, no abnormal pigmentation - Neurologic no disoriented, no combative - Psychiatric oriented to time, oriented to person, oriented to place, speech is normal, memory intact Results - Imaging CT scan - abdomen: report reviewed, image reviewed CT scan - pelvis: report reviewed, image reviewed Assessment and Plan Assessment: Impression: largerenal stones right[>3cm]. Plan: right pcnl
[2021-12-09] MEDS ORDERED: HYDROmorphone 0.5 MG/0.5 ML SYRINGE IVP PRN (07:09)
[2021-12-09] MEDS: LACTATED RINGERS 1,000 ML IV SCH (08:20)
[2021-12-09] MEDS ORDERED: LIDOCAINE 1% (10MG/ML) FOR IV START INTRADERMA ONE (08:21)
[2021-12-09] MEDS ORDERED: ONDANSETRON 4 MG/2 ML VIAL ONE (08:22)
[2021-12-09] MEDS ORDERED: DEXAMETHASONE SOD PHOSPHATE 10 MG/ML 1 ML VIAL IVP ONE (08:32)
[2021-12-09] MEDS ORDERED: ONDANSETRON 4 MG/2 ML VIAL IVP ONE (08:33)
[2021-12-09] MEDS ORDERED: PROPOFOL 10 MG/ML 20 ML VIAL IV ONE (08:47)
[2021-12-09] MEDS ORDERED: ROCURONIUM 10 MG/ML (5 ML VIAL) IV ONE (08:47)
[2021-12-09] MEDS ORDERED: MIDAZOLAM 2 MG/2 ML VIAL ONE (08:47)
[2021-12-09] MEDS ORDERED: GLYCOPYRROLATE 0.2 MG/ML 2 ML VIAL ONE (08:47)
[2021-12-09] MEDS ORDERED: PHENYLEPHRINE-0.9% NACL SYG 1,000 MCG/10 ML SYRINGE ONE (08:47)
[2021-12-09] MEDS ORDERED: HYDROmorphone (PF) 1 MG/ML ONE (08:47)
[2021-12-09] MEDS ORDERED: LIDOCAINE 2% INJ 20 MG/ML (2 ML VIAL) ONE (08:47)
[2021-12-09] MEDS ORDERED: NEOSTIGMINE 1 MG/ML 10 ML VIAL ONE (08:47)
[2021-12-09] MEDS ORDERED: SUCCINYLCHOLINE CHLORIDE 100 MG/5 ML SYR IV ONE (08:47)
[2021-12-09] MEDS ORDERED: fentaNYL (PF) 50 MCG/ML 2 ML AMP ONE (08:47)
[2021-12-09] MEDS ORDERED: IOPAMIDOL-370 50ML BTL IRRIGATION ONE (09:15)
--- NOTE | 2021-12-09 10:12 | XR ---
EXAMINATION TYPE: XR KUB DATE OF EXAM: 12/09/2021 COMPARISON: 06/09/2021 INDICATION: Renal stones, presurgical evaluation TECHNIQUE: Single view abdomen frontal supine view FINDINGS: Nonspecific bowel gas is present. Psoas margins are normal. No organomegaly is present. Multiple calcifications overlying the bilateral kidneys. The largest on the right measures 1.9 cm. La rgest on the left at the inferior pole measures 1.8 cm. These may be larger than the comparison study . A 1.1 cm calcification may be in the right renal pelvis or ureteropelvic junction. IMPRESSION: 1. Multiple bilateral enlarging renal stones.
[2021-12-09] MEDS ORDERED: NALOXONE 0.4 MG/ML 1 ML VIAL IV PRN (10:53)
[2021-12-09] MEDS ORDERED: ONDANSETRON 4 MG/2 ML VIAL IVP PRN (10:54)
[2021-12-09] MEDS ORDERED: MAG HYDROX/AL HYDROX/SIMETH 30 ML CUP PO PRN (10:54)
[2021-12-09] MEDS ORDERED: ACETAMINOPHEN TAB 325 MG TAB PO PRN (10:54)
[2021-12-09] MEDS ORDERED: HYDROmorphone PCA 10 MG/50 ML BAG IV PRN (11:00)
--- NOTE | 2021-12-09 11:00 | P.OP ---
Date of Procedure: 12/09/21 Preoperative Diagnosis: Right renal stones large greater than 3 cm Postoperative Diagnosis: Same Procedure(s) Performed: Cystoscopy placement of occluding balloon catheter right, percutaneous nephrostomy (Dr. matt jewell (, percutaneous nephrostolithotomy with laser lithotripsy, placement of 10 J nephrostomy Anesthesia: COLTEN Surgeon: Richard Love Estimated Blood Loss (ml): 200 Pathology: other (Stone) Condition: stable Disposition: PACU Indications for Procedure: Patient is 66. She has bilateral flank pain. On the right side she is well over 3 cm of stone. On the left side she has a 2 to have centimeters of stone. She comes for right percutaneous nephrostolithotomy. Alternatives have been discussed Description of Procedure: The patient is brought to the operating suite. On the transport gurney she's given a general anesthetic. She's placed in a frog position with a sterile prep and drape. Cystoscopy with a Foroblique lens and 21-Macedonian sheath identifies a normal right ureteral orifice. It is intubated with a 5-Macedonian occluding b alloon catheter. The cystoscope was removed and the occluding balloon catheter is secured to the 16-Macedonian Schwartz The patient is placed in a prone position with care to airways and extremities. Dr. Ahuja of radiology performed access to a right lower pole calyx. The track is dilated 30-Macedonian with the dilating balloon. A working sheath was placed. With the rigid nephroscope I introduced into the collecting system. I move 3 stones each about 8 mm to a centimeter. I then pass the flexible scope into the collecting system. I go into the upper pole calyx were 2-2 and half centimeters stone was identified and broken into smaller pieces with laser lithotripsy. The largest fragments were basketed. The other fragments were grabbed out of the renal pelvis. I then remove the flexible scope into the other upper pole calyx and identify another centimeter stone which is basketed. Then of the procedure I looked throughout the collecting system there are no remaining stones. A 10 J nephrostomy tubes placed. The patient is awakened and returned recovery room good condition. She tolerated the procedure well. Blood loss is approximately 200 mL. She'll be placed in the hospital postoperatively.
--- NOTE | 2021-12-09 11:02 | FL ---
EXAMINATION TYPE: FL Perc Nephrostomy New Access DATE OF EXAM: 12/09/2021 COMPARISON: NONE HISTORY: Right renal calcification Procedure had been discussed with the patient by Dr. Love, risks, benefits, alternatives, were dis cussed and any questions were answered. Informed consent was obtained. The patient was in a semipro ne position prepped and draped on the OR table in the usual sterile fashion. Utilizing a 15 cm lengt h Chiba needle a single pass was made into a lower pole posterior calyx under fluoroscopic guidance. An 0.018 guidewire is passed through the needle and there was placement of a 6-Tunisian catheter sheat h system. There was conversion to a 0.035 system was performed with passage of a guidewire into the ureter utilizing a directional catheter. A second safety wire was placed. Remaining portion of pro cedure performed by . Approximately 4 minutes and 12 of fluoroscopy was provided. IMPRESSION: 1. Successful intraoperative right nephrostomy prior to nephrolithotomy.
[2021-12-09] MEDS: KETOROLAC 15 MG/ML 1 ML VIAL IVP PRN ×2 (14:34→20:03)
[2021-12-09] MEDS: DEXTROSE 5%-0.45% NACL 1,000 ML IV SCH (15:31)
[2021-12-09] MEDS: HYDROXYCHLOROQUINE SULFATE 200 MG TAB PO SCH (20:03)
[2021-12-10] MEDS: DEXTROSE 5%-0.45% NACL 1,000 ML IV SCH ×2 (00:17→07:26)
[2021-12-10] MEDS: LACTATED RINGERS 1,000 ML IV SCH (07:21)
[2021-12-10] MEDS: HYDROXYCHLOROQUINE SULFATE 200 MG TAB PO SCH (07:26)
[2021-12-10] MEDS ORDERED: HYDROcodone/APAP 5-325MG 1 EACH TAB PO PRN (07:27)
--- NOTE | 2021-12-10 07:30 | P.DS ---
Providers Attending physician: Richard Love Primary care physician: [facility] Course: The patient was admitted the hospital yesterday for a percutaneous nephrostolithotomy right. She underwent this without difficulty. She has done well overnight. The urine is clearing. Her abdomen is soft. She tolerated liquid diet. She is not having pain. She'll ambulate today. If he feels well she'll be discharged home later today. She'll follow-up in the office next week for nephrostomy tube removal. She'll be given a prescription for Baxley for pain. Postoperative instructions been given. Her condition is good. Patient Condition at Discharge: Good Plan - Discharge Summary Discharge Rx Participant: Yes New Discharge Prescriptions: New HYDROcodone/APAP 5-325MG [Baxley 5-325] 1 tab PO Q4HR PRN 3 Days #10 tab PRN Reason: Pain No Action Ibuprofen 600 mg PO TID PRN PRN Reason: Pain Or Fever > 100.5 Hydroxychloroquine Sulfate [Plaquenil] 200 mg PO BID Acetaminophen [Tylenol Extra Strength] 500 - 1,000 mg PO BID Orencia (Unknown Dose) 1 dose .ROUTE Q30D Discharge Medication List Ibuprofen 600 mg PO TID PRN 12/19/18 [History] Hydroxychloroquine Sulfate [Plaquenil] 200 mg PO BID 06/09/21 [History] Acetaminophen [Tylenol Extra Strength] 500 - 1,000 mg PO BID 12/07/21 [History] Orencia (Unknown Dose) 1 dose .ROUTE Q30D 12/07/21 [History] HYDROcodone/APAP 5-325MG [Baxley 5-325] 1 tab PO Q4HR PRN 3 Days #10 tab 12/10/21 [Rx] Follow up Appointment(s)/Referral(s): Richard Love MD [STAFF PHYSICIAN] - 12/14/21 Discharge Disposition: HOME SELF-CARE
[2021-12-10 08:09] VITALS: BP 124/80; PULSE 68; RESP 18; TEMP 97.9
== END 2021-12-10 15:14 | disposition home or self-care (01) ==
LOC: OR 06:44 → 4SSUR 10:55 → OR 12-10 15:14
PROVIDERS: ATTEND Urology
DX: N20.0 Calculus of kidney (principal); I10 Essential (primary) hypertension; M06.9 Rheumatoid arthritis, unspecified; Z82.49 Family history of ischemic heart disease and other diseases of the circulatory system; Z96.643 Presence of artificial hip joint, bilateral; Z96.653 Presence of artificial knee joint, bilateral
CPT/HCPCS: 50080; 50432; 82365; 74018; C1769 ×5; C2628; C1894; C1729; J2250; J1100; J2710; J0690; J2405; J3010; J1170 ×3; J1885; J2370; J0330; J2704; Q9967; J2001; 86850; 86900; 86901

== ENCOUNTER 2024-12-26 09:45 | Inpatient (IN) | payer MEDICARE, OTHER ==
--- NOTE | 2024-12-26 10:29 | ED ---
General Adult HPI - General Chief complaint: Extremity Injury, Lower Stated complaint: Left Leg Injury Time Seen by Provider: 12/26/24 09:56 Source: patient, family, RN notes reviewed Mode of arrival: wheelchair Limitations: no limitations - History of Present Illness Initial comments: 77 year old female presents to the ED for evaluation after a fall about 2 weeks ago. She reports she fell and hit the front of her head while walking up an incline. She endorses sustaining several bruises on her face and forehead since then. She has also had left sided hip pain on the posterior side radiating down to her anterior thigh. She reports that the pain is worse with movement and lying down on the affected area. - Related Data Home Medications Medication Instructions Recorded Confirmed Actemra Infusion 8mg/Kg 1 dose IV Q28D 12/26/24 12/26/24 Ibuprofen [Motrin] 600 mg PO Q6H PRN 12/26/24 12/26/24 Losartan-Hctz 50-12.5 mg [Hyzaar 0.5 tab PO DAILY 12/26/24 12/26/24 50-12.5] predniSONE 2.5 mg PO DAILY PRN 12/26/24 12/26/24 Allergies Allergy/AdvReac Type Severity Reaction Status Date / Time adhesive AdvReac Mild blisters Verified 12/26/24 11:57 skin Review of Systems ROS Statement: Those systems with pertinent positive or pertinent negative responses have been documented in the HPI. ROS Other: All systems not noted in ROS Statement are negative. Past Medical History Past Medical History: Hyperlipidemia, Hypertension, Rheumatoid Arthritis (RA) Additional Past Medical History / Comment(s): KIDNEY STONE,STEROID INJECTION NOVEMBER 2015,SINUS PROBLEMS History of Any Multi-Drug Resistant Organisms: None Reported Past Surgical History: Joint Replacement, Orthopedic Surgery Additional Past Surgical History / Comment(s): RT KNEE SURG-PINS & WIRES PLACED -1999,LT ELVIRA 2013,Plates in R ankle in 2010, 10/2014 LT ELVIRA, RT TKA,. COLONOSCOPY, KIDNEY STONE REMOVED, L total knee 11/08 Past Anesthesia/Blood Transfusion Reactions: No Reported Reaction Past Psychological History: No Psychological Hx Reported Smoking Status: Never smoker Past Alcohol Use History: None Reported Past Drug Use History: None Reported - Past Family History Father Family Medical History: Coronary Artery Disease (CAD), Eye Disorder Additional Family Medical History / Comment(s): Macular degeneration. Brother(s) Family Medical History: No Reported History Additional Family Medical History / Comment(s): Has 1 brother that from drug use. One brother is alive with no major medical problems. Patient does not have any sisters. Patient has twin daughters with no major medical problems. Mother Family Medical History: Cancer Additional Family Medical History / Comment(s): Mother at age 74 from thyroid cancer which had metastasized to her lungs. General Exam Limitations: no limitations General appearance: alert, in no apparent distress Respiratory exam: Present: normal lung sounds bilaterally. Absent: respiratory distress, wheezes, rales, rhonchi, stridor Cardiovascular Exam: Present: regular rate, normal rhythm, normal heart sounds. Absent: systolic murmur, diastolic murmur, rubs, gallop, clicks Left Hip exam: Present: tenderness Upper Leg exam: Present: tenderness Lower Leg exam: Present: swelling Ankle exam: Present: swelling Course Vital Signs 12/26/24 12/26/24 12/26/24 09:52 13:26 15:02 Temperature 97.8 F Pulse Rate 112 H 87 91 Respiratory 20 18 16 Rate Blood Pressure 163/79 143/101 128/42 O2 Sat by Pulse 98 96 98 Oximetry Medical Decision Making - Medical Decision Making Was pt. sent in by a medical professional or institution (ERIC Martinez, COMMUNITY PHARMACIST, urgent care, hospital, or custodial...) When possible be specific @ -No Did you speak to anyone other than the patient for history (EMS, parent, family, police, friend...)? What history was obtained from this source @ -No Did you review nursing and triage notes (agree or disagree)? Why? @ -I reviewed and agree with nursing and triage notes Were old charts reviewed (outside hosp., previous admission, EMS record, old EKG, old radiological studies, urgent care reports/EKG's, custodial records)? Report findings @ -No old charts were reviewed Differential Diagnosis (chest pain, altered mental status, abdominal pain women, abdominal pain men, vaginal bleeding, weakness, fever, dyspnea, syncope, headache, dizziness, GI bleed, back pain, seizure, CVA, palpatations, mental health, musculoskeletal)? @ -Fall, hip fracture hip contusion, joint infection, DVT EKG interpreted by me (3pts min.). @ -As above X-rays interpreted by me (1pt min.). @ -X-ray left hip with AP pelvis no acute fracture stable hardware noted CT interpreted by me (1pt min.). @CT of the left hip showing psoas abscess extending into the thigh U/S interpreted by me (1pt. min.). @ -Ultrasound left leg positive for DVT What testing was considered but not performed or refused? (CT, X-rays, U/S, labs)? Why? @ -None What meds were considered but not given or refused? Why? @ -None Did you discuss the management of the patient with other professionals (professionals i.e. , PA, COMMUNITY PHARMACIST, lab, RT, psych nurse, social welfare research worker, twisting frame fixer, teacher, desk officer, case picker)? Give summary @ -[facility] for admission requested ID Ortho consult patient was started on heparin f or DVT. With clot close monitoring Was smoking cessation discussed for >3mins.? @ -No Was critical care preformed (if so, how long)? @ -35 Were there social determinants of health that impacted care today? How? (Homelessness, low income, unemployed, alcoholism, drug addiction, transportation, low edu. Level, literacy, decrease access to med. care, fdc, rehab)? @ -No Was there de-escalation of care discussed even if they declined (Discuss DNR or withdrawal of care, Hospice)? DNR status @ -No What co-morbidities impacted this encounter? (DM, HTN, Smoking, COPD, CAD, Cancer, CVA, ARF, Chemo, Hep., AIDS, mental health diagnosis, sleep apnea, morbid obesity)? @ -None Was patient admitted / discharged? Hospital course, mention meds given and route, prescriptions, significant lab abnormalities, going to OR and other pertinent info. @ -Admitted patient is found to have psoas abscess, left leg DVT in which requires requiring anticoagulation given DVT with close monitoring secondary infection and possible internal hematoma. Patient had prior CT of her head which was negative for any bleeding she has no current headache. Patient started dual antibiotic therapy, admitted to medicine with consult ID vascular and orthopedics Undiagnosed new problem with uncertain prognosis? @ -Yes] Drug Therapy requiring intensive monitoring for toxicity (Heparin, Nitro, Insulin, Cardizem)? @ -[Heparin Were any procedures done? @ -No Diagnosis/symptom? @ -Left leg DVT, psoas abscess Acute, or Chronic, or Acute on Chronic? @Acute Uncomplicated (without systemic symptoms) or Complicated (systemic symptoms)? @ -Complicated Side effects of treatment? @ -No Exacerbation, Progression, or Severe Exacerbation? @ -No Poses a threat to life or bodily function? How? (Chest pain, USA, DC, pneumonia, PE, COPD, DKA, ARF, appy, cholecystitis, CVA, Diverticulitis, Homicidal, Suicidal, threat to staff... and all critical care pts) @ -[Yes abscess, DVT risks of vascular function, sepsis - Lab Data Result diagrams: 12/26/24 13:25 12/26/24 13:25 Lab Results 12/26/24 12/26/24 12/26/24 Range/Units 13:25 13:25 13:25 WBC 19.61 H (4.50-10.00) 10*3/uL RBC 4.69 (4.10-5.20) 10*6/uL Hgb 15.3 H (12.0-15.0) g/dL Hct 42.4 (37.2-46.3) % MCV 90.4 (80.0-97.0) fL MCH 32.6 H (27.0-32.0) pg MCHC 36.1 (32.0-37.0) g/dL Plt Count 215 (140-440) 10*3/uL MPV 9.2 L (9.5-12.2) fL Immature Gran % (Auto) 0.5 % Neutrophils % 89.8 % Lymphocytes % 4.8 % Monocytes % 4.3 % Eosinophils % 0.2 % Basophils % 0.4 % Immature Gran # 0.10 H (0.00-0.04) 10*3/uL Neutrophils # 17.61 H (1.80-7.70) 10*3/uL Lymphocytes # 0.94 (0.90-5.00) 10*3/uL Monocytes # 0.84 (0.20-1.00) 10*3/uL Eosinophils # 0.04 (0.04-0.35) 10*3/uL Basophils # 0.08 (0.00-0.10) 10*3/uL PT (10.0-12.5) sec INR (<1.2) Sodium 141 (137-145) mmol/L Potassium 2.9 L (3.5-5.1) mmol/L Chloride 106 (98-107) mmol/L Carbon Dioxide 21 L (22-30) mmol/L Anion Gap 14 mmol/L BUN 25 H (7-17) mg/dL Creatinine 0.58 (0.52-1.04) mg/dL Est GFR (CKD-EPI)AfAm >90 (>60 ml/min/1.73 sqM) Est GFR (CKD-EPI)NonAf >90 (>60 ml/min/1.73 sqM) Glucose 101 H (74-99) mg/dL Plasma Lactic Acid Edmund 1.5 (0.7-2.0) mmol/L Calcium 10.1 (8.4-10.2) mg/dL Total Bilirubin 1.1 (0.2-1.3) mg/dL AST 22 (14-36) U/L ALT 26 (4-34) U/L Alkaline Phosphatase 89 (38-126) U/L Total Protein 6.2 L (6.3-8.2) g/dL Albumin 3.9 (3.5-5.0) g/dL /11/16 Range/Units 14:18 WBC (4.50-10.00) 10*3/uL RBC (4.10-5.20) 10*6/uL Hgb (12.0-15.0) g/dL Hct (37.2-46.3) % MCV (80.0-97.0) fL MCH (27.0-32.0) pg MCHC (32.0-37.0) g/dL Plt Count (140-440) 10*3/uL MPV (9.5-12.2) fL Immature Gran % (Auto) % Neutrophils % % Lymphocytes % % Monocytes % % Eosinophils % % Basophils % % Immature Gran # (0.00-0.04) 10*3/uL Neutrophils # (1.80-7.70) 10*3/uL Lymphocytes # (0.90-5.00) 10*3/uL Monocytes # (0.20-1.00) 10*3/uL Eosinophils # (0.04-0.35) 10*3/uL Basophils # (0.00-0.10) 10*3/uL PT 11.0 (10.0-12.5) sec INR 1.0 (<1.2) Sodium (137-145) mmol/L Potassium (3.5-5.1) mmol/L Chloride (98-107) mmol/L Carbon Dioxide (22-30) mmol/L Anion Gap mmol/L BUN (7-17) mg/dL Creatinine (0.52-1.04) mg/dL Est GFR (CKD-EPI)AfAm (>60 ml/min/1.73 sqM) Est GFR (CKD-EPI)NonAf (>60 ml/min/1.73 sqM) Glucose (74-99) mg/dL Plasma Lactic Acid Edmund (0.7-2.0) mmol/L Calcium (8.4-10.2) mg/dL Total Bilirubin (0.2-1.3) mg/dL AST (14-36) U/L ALT (4-34) U/L Alkaline Phosphatase (38-126) U/L Total Protein (6.3-8.2) g/dL Albumin (3.5-5.0) g/dL Critical Care Time Critical Care Time: Yes Total Critical Care Time: 35 Disposition Clinical Impression: Psoas abscess, left, Left leg DVT Disposition: ADMITTED IP TO THIS [facility] Condition: Poor Time of Disposition: 14:11
--- NOTE | 2024-12-26 11:08 | XR ---
EXAMINATION TYPE: XR Hip LT and AP Pelvis DATE OF EXAM: 12/26/2024 10:57 AM COMPARISON: 01/15/2014 CLINICAL INDICATION: Female, 69 years old with history of fall, pain, pain TECHNIQUE: 2 views left hip view(s) obtained. Exam supplemented with AP pelvis FINDINGS: Bilateral hip prostheses are present. Symphysis pubis and sacroiliac joints are normal. No acute fractures are evident. Some hyperostosis from the greater trochanter is noted. IMPRESSION: 1. No acute posttraumatic osseous abnormality left hip. [facility], , 12/26/2024 11:06 AM
--- NOTE | 2024-12-26 12:49 | US ---
EXAMINATION TYPE: US venous doppler duplex LE LT DATE OF EXAM: 12/26/2024 12:34 PM COMPARISON: NONE CLINICAL INDICATION: Female, 69 years old with history of pain, swelling; Patient states she fell x 1 week ago. Pain TECHNIQUE: The lower extremity deep venous system is examined utilizing real time linear array sonog tawny with graded compression, color doppler sonography, and spectral doppler. SIDE PERFORMED: Left FINDINGS: VESSELS IMAGED: Common Femoral Vein Deep Femoral Vein Greater Saphenous Vein * Femoral Vein Popliteal Vein Small Saphenous Vein * Proximal Calf Veins (* superficial vessels) Left Leg: Positive for DVT from EIV to distal femoral vein. Limited popliteal vein due to patient d iscomfort and edema, Color Doppler imaging shows patency of the vessels. Spectral waveforms are withi n normal limits. IMPRESSION: 1. Deep venous thrombosis within the left lower extremity extending from the distal femoral vein to t he external iliac vein. [facility], , 12/26/2024 12:46 PM
[2024-12-26 13:41] LABS: Basophils # (A) 0.08 10*3/uL (0.00-0.10); Basophils % (A) 0.4 %; Eosinophils # (A) 0.04 10*3/uL (0.04-0.35); Eosinophils % (A) 0.2 %; HCT 42.4 % (37.2-46.3); HGB 15.3 g/dL (12.0-15.0); Lymphocytes # (A) 0.94 10*3/uL (0.90-5.00); Lymphocytes % (A) 4.8 %; MCH 32.6 pg (27.0-32.0); MCHC 36.1 g/dL (32.0-37.0); MCV 90.4 fL (80.0-97.0); Mean Platelet Volume 9.2 fL (9.5-12.2); Monocytes # (A) 0.84 10*3/uL (0.20-1.00); Monocytes % (A) 4.3 %; Neutrophils # (A) 17.61 10*3/uL (1.80-7.70); Neutrophils % (A) 89.8 %; Platelet Count 215 10*3/uL (140-440); RBC 4.69 10*6/uL (4.10-5.20); RDW 12.4 % (11.5-14.5); WBC 19.61 10*3/uL (4.50-10.00)
[2024-12-26 13:50] LABS: ALT 26 U/L (4-34); AST 22 U/L (14-36); African American GFR (CKD) >90 (>60 ml/min/1.73 sqM); Albumin 3.9 g/dL (3.5-5.0); Alkaline Phosphatase 89 U/L (38-126); Anion Gap 14 mmol/L; Blood Urea Nitrogen 25 mg/dL (7-17); Calcium 10.1 mg/dL (8.4-10.2); Carbon Dioxide 21 mmol/L (22-30); Chloride 106 mmol/L (98-107); Glucose 101 mg/dL (74-99); Non-African American GFR(CKD) >90 (>60 ml/min/1.73 sqM); Potassium 2.9 mmol/L (3.5-5.1); Sodium 141 mmol/L (137-145); Total Bilirubin 1.1 mg/dL (0.2-1.3); Total Protein 6.2 g/dL (6.3-8.2)
--- NOTE | 2024-12-26 14:00 | CT ---
EXAMINATION TYPE: CT hip LT wo con DATE OF EXAM: 12/26/2024 12:02 PM COMPARISON: None. CLINICAL INDICATION: Female, 69 years old with history of pain, Fall, hip pain TECHNIQUE: Contrast used: mL of , (none if empty) Oral contrast used: (none if empty) Axial images at 3 mm thick sections. Reconstructed images in the coronal and sagittal planes. FINDINGS: Neck and joint space phenomenon at the sacroiliac joints is normal. The osseous pelvis within the fie ld-of-view appears intact. No pelvic fractures are identified. Attention is paid to the left hip prosthesis. Left hip prosthesis is present with acetabular componen t. No dislocation evident. No acute fracture adjacent to the prosthesis is evident. Note is made of s ome hyperostosis at the greater trochanter. Within the pelvis tracking along the medial iliac wing along the expected course of the psoas muscle is a 7.0 x 8.6 cm collection with scattered punctate areas of air. This extends through the inguinal region into the upper thigh. Findings could be compatible with psoas muscle abscess. Report was hernandez d to the emergency room by Dr. Payne by telephone at the time of preliminary interpretation [phone] ho [id number] 12/26/2024. IMPRESSION: 1. INTRAPELVIC LEFT PSOAS MUSCLE ABSCESS WITH EXTENSION INTO THE INGUINAL REGION AND ANTERIOR THIGH. 2. NO ACUTE OSSEOUS ABNORMALITY. [facility], , 12/26/2024 1:58 PM
[2024-12-26] MEDS ORDERED: VANCOMYCIN IV PER PHARMACY 1 EACH MISC MISCELLANE PRN (14:04)
[2024-12-26] MEDS ORDERED: ACETAMINOPHEN TAB 325 MG TAB PO PRN (14:11)
[2024-12-26] MEDS ORDERED: NALOXONE 0.4 MG/ML 1 ML VIAL IV PRN (14:11)
[2024-12-26] MEDS ORDERED: ONDANSETRON 4 MG/2 ML VIAL IVP PRN (14:11)
[2024-12-26] MEDS: HEPARIN SODIUM 1,000 UN/ML (10ML VL) IV ONE (14:57)
[2024-12-26] MEDS: HEPARIN SOD,PORK IN 0.45% NACL 25,000 UNIT in 0.45% NACL 1 250ML.BAG IV SCH (14:59)
[2024-12-26] MEDS: VANCOMYCIN 1,500 MG in SODIUM CHLORIDE 0.9% 500 ML 500 ML IVPB ONE (15:05)
[2024-12-26] MEDS ORDERED: PIPERACILLIN-TAZOBACTAM 3.375 GM in SODIUM CHLORIDE 0.9% 100 ML IVPB SCH (16:00)
[2024-12-26] MEDS: traMADol 50 MG TAB PO PRN (19:55)
[2024-12-26] MEDS: PIPERACILLIN-TAZOBACTAM 3.375 GM in SODIUM CHLORIDE 0.9% 100 ML IVPB SCH (19:56)
[2024-12-27 01:22] LABS: HCT 40.2 % (37.2-46.3); MCH 32.1 pg (27.0-32.0); MCHC 34.8 g/dL (32.0-37.0); MCV 92.2 fL (80.0-97.0); Mean Platelet Volume 9.4 fL (9.5-12.2); Platelet Count 220 10*3/uL (140-440); RBC 4.36 10*6/uL (4.10-5.20); RDW 12.3 % (11.5-14.5)
[2024-12-27 02:02] LABS: African American GFR (CKD) >90 (>60 ml/min/1.73 sqM); Anion Gap 10 mmol/L; Blood Urea Nitrogen 24 mg/dL (7-17); Calcium 9.2 mg/dL (8.4-10.2); Carbon Dioxide 21 mmol/L (22-30); Chloride 107 mmol/L (98-107); Glucose 102 mg/dL (74-99); Non-African American GFR(CKD) >90 (>60 ml/min/1.73 sqM); Sodium 138 mmol/L (137-145)
[2024-12-27] MEDS: VANCOMYCIN 1,500 MG in SODIUM CHLORIDE 0.9% 500 ML 500 ML IVPB SCH (02:05)
[2024-12-27 03:19] LABS: Potassium 2.7 mmol/L (3.5-5.1)
[2024-12-27] MEDS ORDERED: Potassium Replacement Protocol 1 EACH MISC MISCELLANE PRN ×2 (03:57→15:59)
[2024-12-27] MEDS: PIPERACILLIN-TAZOBACTAM 3.375 GM in SODIUM CHLORIDE 0.9% 100 ML IVPB SCH (05:01)
[2024-12-27] MEDS: POTASSIUM CHLORIDE 10 MEQ in WATER FOR INJECTION 1 100ML.BAG IVPB SCH (05:01)
[2024-12-27 06:01] LABS: African American GFR (CKD) >90 (>60 ml/min/1.73 sqM); Non-African American GFR(CKD) >90 (>60 ml/min/1.73 sqM)
--- NOTE | 2024-12-27 08:44 | P.CNOR ---
History of Present Illness - [facility] Consult date: 12/27/24 Consult reason: joint pain (Left hip pain) History of present illness: Patient is a 69-year-old female who presented to [facility] yesterday for worsening pain to her left lower extremity. Over , patient did fall landing on her left side hitting her head, arm and lower leg. She was initially seen at a urgent care/emergency room at [address]. At that time there was no acute fractures or dislocations noted. Patient has progressively gotten worse with regards to the overall discomfort and swelling with that left lower extremity. Patient is known to our orthopedic practice, she has had both her hips and knees done by our group. Upon arrival to our hospital, multiple imaging and lab tests were done. CT scan of the hip was concern for psoas abscess, no acute bony abnormalities were noted along with no changes to the total arthroplasty implants. Ultrasound of the left lower extremity was positive for DVT. Lab work was also concerning for infection. Patient was admitted under internal medicine, our orthopedic group along with infectious disease was consulted. Patient was evaluated today at bedside, she is resting rather comfortably. She notes most discomfort in the anterior thigh down into the knee. She has a very difficult time lifting that leg, she states its gotten worse over the last week or so since the fall. Patient notes occasional swelling in that left lower extremity which she feels is due to her blood pressure. She denies any right lower extremity pain. She denies any left upper or right upper extremity pain. She denies any numbness or tingling to the bilateral upper or lower extremities. She denies any loss of bowel or bladder function at this time. She denies any fevers or chills, she denies any recent illnesses. She normally utilizes no walker or cane for assistance with ambulation. Review of Systems Constitutional: Reports as per HPI Past Medical History Past Medical History: Hyperlipidemia, Hypertension, Rheumatoid Arthritis (RA) Additional Past Medical History / Comment(s): KIDNEY STONE,STEROID INJECTION NOVEMBER 2015,SINUS PROBLEMS History of Any Multi-Drug Resistant Organisms: None Reported Past Surgical History: Joint Replacement, Orthopedic Surgery Additional Past Surgical History / Comment(s): RT KNEE SURG-PINS & WIRES PLACED -1999,LT ELVIRA 2013,Plates in R ankle in 2010, 10/2014 LT ELVIRA, RT TKA,. COLONOSCOPY, KIDNEY STONE REMOVED, L total knee 11/08 Past Anesthesia/Blood Transfusion Reactions: No Reported Reaction Past Psychological History: No Psychological Hx Reported Smoking Status: Never smoker Past Alcohol Use History: None Reported Additional Past Alcohol Use History / Comment(s): She is a lifelong nonsmoker, no medical marijuana, marijuana, street drug or alcohol use. Past Drug Use History: None Reported - Past Family History Father Family Medical History: Coronary Artery Disease (CAD), Eye Disorder Additional Family Medical History / Comment(s): Macular degeneration. Brother(s) Family Medical History: No Reported History Additional Family Medical History / Comment(s): Has 1 brother that from drug use. One brother is alive with no major medical problems. Patient does not have any sisters. Patient has twin daughters with no major medical problems. Mother Family Medical History: Cancer Additional Family Medical History / Comment(s): Mother at age 74 from t hyroid cancer which had metastasized to her lungs. Medications and Allergies Home Medications Medication Instructions Recorded Confirmed Type Actemra Infusion 8mg/Kg 1 dose IV Q28D 12/26/24 12/26/24 History Ibuprofen [Motrin] 600 mg PO Q6H PRN 12/26/24 12/26/24 History Losartan-Hctz 50-12.5 mg [Hyzaar 0.5 tab PO DAILY 12/26/24 12/26/24 History 50-12.5] predniSONE 2.5 mg PO DAILY PRN 12/26/24 12/26/24 History Allergies Allergy/AdvReac Type Severity Reaction Status Date / Time adhesive AdvReac Mild blisters Verified 12/26/24 11:57 skin Physical Examination Left lower extremity: Generalized soft tissue swelling present throughout most of the extremity worse below the knee, there is some generalized erythema in the lower leg with pitting edema. She has a well-healed incision over the anterior aspect of the knee with generalized swelling. Well-healed incision over the lateral aspect of the left hip, there is no openings in the skin, there is no erythema, there is no areas of fluctuance appreciated Range of motion was difficult for the patient mainly with extension and flexion of the hip along with extension of the knee. She was able to flex the knee. Plantarflexion, dorsiflexion, EHL, FHL are intact. Both logroll maneuver of the extremity along with deep flexion along with internal and external rotation of the hip reproduces no groin pain. Patient has generalized tenderness with palpation to the areas of swelling in the lower leg, she does demonstrate some discomfort in the thigh with palpation. Calf is swollen, no significant tenderness with palpation on exam Sensory exam to light touch throughout that extremity is intact, skin is warm to touch Results - Labs Labs: Abnormal Lab Results - Last 24 Hours (Table) 12/26/24 12/26/24 12/26/24 Range/Units 13:25 13:25 13:25 WBC 19.61 H (4.50-10.00) 10*3/uL Hgb 15.3 H (12.0-15.0) g/dL MCH 32.6 H (27.0-32.0) pg MPV 9.2 L (9.5-12.2) fL Immature Gran # 0.10 H (0.00-0.04) 10*3/uL Neutrophils # 17.61 H (1.80-7.70) 10*3/uL APTT (22.0-30.0) sec Potassium 2.9 L (3.5-5.1) mmol/L Carbon Dioxide 21 L (22-30) mmol/L BUN 25 H (7-17) mg/dL Glucose 101 H (74-99) mg/dL C-Reactive Protein 1.5 H (<1.0) mg/dL Total Protein 6.2 L (6.3-8.2) g/dL 12/26/24 12/27/24 12/27/24 Range/Units 19:54 01:10 01:10 WBC 12.70 H (4.50-10.00) 10*3/uL Hgb (12.0-15.0) g/dL MCH 32.1 H (27.0-32.0) pg MPV 9.4 L (9.5-12.2) fL Immature Gran # (0.00-0.04) 10*3/uL Neutrophils # (1.80-7.70) 10*3/uL APTT 88.3 H 69.1 H (22.0-30.0) sec Potassium (3.5-5.1) mmol/L Carbon Dioxide (22-30) mmol/L BUN (7-17) mg/dL Glucose (74-99) mg/dL C-Reactive Protein (<1.0) mg/dL Total Protein (6.3-8.2) g/dL 12/27/24 Range/Units 01:10 WBC (4.50-10.00) 10*3/uL Hgb (12.0-15.0) g/dL MCH (27.0-32.0) pg MPV (9.5-12.2) fL Immature Gran # (0.00-0.04) 10*3/uL Neutrophils # (1.80-7.70) 10*3/uL APTT (22.0-30.0) sec Potassium 2.7 L* (3.5-5.1) mmol/L Carbon Dioxide 21 L (22-30) mmol/L BUN 24 H (7-17) mg/dL Glucose 102 H (74-99) mg/dL C-Reactive Protein (<1.0) mg/dL Total Protein (6.3-8.2) g/dL H & H 12/26/24 12/27/24 Range/Units 13:25 01:10 Hgb 15.3 H 14.0 (12.0-15.0) g/dL Hct 42.4 40.2 (37.2-46.3) % Coagulation 12/26/24 Range/Units 14:18 INR 1.0 (<1.2) Result Diagrams: 12/27/24 01:10 12/27/24 05:15 - Diagnostic results Hip x-ray: report reviewed, image reviewed Hip CT: report reviewed, image reviewed Assessment and Plan Assessment: Left lower extremity pain Left lower extremity swelling/edema Left lower extremity DVT Concerns for left psoas muscle abscess Concerns for left hip periprosthetic infection Multiple medical comorbidities Plan: I was able to discuss the case, this to include both physical exam findings and imaging studies my attending Dr. Moreno. No emergent orthopedic surgical intervention is recommended at this time. Patient physical exam findingss did not demonstrate obvious infection of the left hip. Infectious disease has consulted interventional radiology for possible aspiration of the fluid collection noted on the CT scan of the left hip. Patient was started on IV antibiotics prophylactically We also ordered a tagged white blood cell scan for further evaluation Pain control, oral and IV medication as needed DVT prophylaxis per primary medical service Other medical specialty recommendations appreciated Further recommendations to follow Time with Patient: Less than 30
[2024-12-27 09:00] LABS: Basophils # (A) 0.08 X 10*3/uL (0.00-0.10); Basophils % (A) 0.7 %; Eosinophils # (A) 0.17 X 10*3/uL (0.04-0.35); Eosinophils % (A) 1.5 %; HCT 41.7 % (37.2-46.3); HGB 13.8 g/dL (12.0-15.0); Lymphocytes # (A) 1.24 X 10*3/uL (0.90-5.00); Lymphocytes % (A) 10.8 %; MCH 31.5 pg (27.0-32.0); MCHC 33.1 g/dL (32.0-37.0); MCV 95.2 FL (80.0-97.0); Mean Platelet Volume 9.3 FL (9.5-12.2); Monocytes # (A) 0.61 X 10*3/uL (0.20-1.00); Monocytes % (A) 5.3 %; NRBC Per 100 WBC 0 X 10*3/uL (0.00-0.01); Neutrophils # (A) 9.28 X 10*3/uL (1.80-7.70); Neutrophils % (A) 81.3 %; Platelet Count 202 X 10*3/uL (140-440); RBC 4.38 X 10*6/uL (4.10-5.20); RDW 12.7 % (11.5-14.5); WBC 11.43 X 10*3/uL (4.50-10.00)
[2024-12-27 09:30] LABS: Mucus,Urine Rare /hpf; RBC,Urine >182 /hpf (0-5); Squamous Epithelial Cell,Urine 3 /hpf (0-4); WBC,Urine 51 /hpf (0-5)
[2024-12-27 09:34] LABS: Appearance,Urine Cloudy (Clear); Color,Urine Dark Brown
--- NOTE | 2024-12-27 09:36 | P.CONS ---
History of Present Illness - Reason for Consult Consult date: 12/26/24 Septic hip Requesting physician: Ernie Hernandez - Chief Complaint Left hip pain x days - History of Present Illness Patient is a 69-year-old female with a past medical history significant for hypertension hyperlipidemia RA in this patient who did have bilateral knee and hip replacement and did have a fall about a week ago hitting her left side of the body has developed bruising to the left facial area and since then has been dealing with the pain to the left hip on the posterior side rating down to the anterior thigh as the patient pain continued to get worse he did not get relief describing pain to be moderate intensity dull aching to throbbing denies having any weakness in the right denies high-grade fever with the symptoms the patient was evaluated on presentation to the hospital patient was afebrile and no fever have been recorded subsequently patient was mildly tachycardic but not hypotensive or hypoxic no need for supplemental oxygen patient did have a white count of 19.61 creatinine 0.58 potassium was low liver enzymes are normal patient did have a hip pelvic x-ray no acute posttraumatic bony abnormality of the hip venous Doppler positive for DVT to the left leg patient also have a hip CT intrapelvic left psoas muscle abscess with extension into the inguinal region and anterior thigh no bony abnormality patient did have a blood cultures obtained she was started on Zosyn and vancomycin infectious was consulted for further management of antibiotic therapy Review of Systems Positive point and negatives has been mentioned in the HPI, complete review of systems was performed and all other systems are negative Past Medical History Past Medical History: Hyperlipidemia, Hypertension, Rheumatoid Arthritis (RA) Additional Past Medical History / Comment(s): KIDNEY STONE,STEROID INJECTION NOVEMBER 2015,SINUS PROBLEMS History of Any Multi-Drug Resistant Organisms: None Reported Past Surgical History: Joint Replacement, Orthopedic Surgery Additional Past Surgical History / Comment(s): RT KNEE SURG-PINS & WIRES PLACED -1999,LT ELVIRA 2013,Plates in R ankle in 2010, 10/2014 LT ELVIRA, RT TKA,. COLONOSCOPY, KIDNEY STONE REMOVED, L total knee 11/08 Past Anesthesia/Blood Transfusion Reactions: No Reported Reaction Past Psychological History: No Psychological Hx Reported Smoking Status: Never smoker Past Alcohol Use History: None Reported Past Drug Use History: None Reported - Past Family History Father Family Medical History: Coronary Artery Disease (CAD), Eye Disorder Additional Family Medical History / Comment(s): Macular degeneration. Brother(s) Family Medical History: No Reported History Additional Family Medical History / Comment(s): Has 1 brother that from drug use. One brother is alive with no major medical problems. Patient does not have any sisters. Patient has twin daughters with no major medical problems. Mother Family Medical History: Cancer Additional Family Medical History / Comment(s): Mother at age 74 from thyroid cancer which had metastasized to her lungs. Medications and Allergies Home Medications Medication Instructions Recorded Confirmed Type Actemra Infusion 8mg/Kg 1 dose IV Q28D 12/26/24 12/26/24 History Ibuprofen [Motrin] 600 mg PO Q6H PRN 12/26/24 12/26/24 History Losartan-Hctz 50-12.5 mg [Hyzaar 0.5 tab PO DAILY 12/26/24 12/26/24 History 50-12.5] predniSONE 2.5 mg PO DAILY PRN 12/26/24 12/26/24 History Allergies Allergy/AdvReac Type Severity Reaction Status Date / Time adhesive AdvReac Mild blisters Verified 12/26/24 11:57 skin Physical Exam Vitals: Vital Signs Temp Pulse Resp BP Pulse Ox 12/26/24 15:02 91 16 128/42 98 12/26/24 13:26 87 18 143/101 96 12/26/24 09:52 97.8 F 112 H 20 163/79 98 Intake and Output 12/26/24 12/26/24 12/26/24 06:59 14:59 22:59 Other: Weight 99.79 kg GENERAL DESCRIPTION: Elderly female lying in bed, no distress. No tachypnea or accessory muscle of respiration use. HEENT: Shows Pallor , no scleral icterus. Oral mucous membrane is dry. Some periorbital forehead bruising NECK: Trachea central, no thyromegaly. LUNGS: Unlabored breathing. Clear to auscultation anteriorly. No wheeze or crackle. HEART: S1, S2, regular rate and rhythm. No loud murmur ABDOMEN: Soft, no tenderness , EXTREMITIES: Diffuse swelling to the left lower extremity SKIN: No rash, no masses palpable. NEUROLOGICAL: The patient is awake, alert, oriented x3, mood and affect normal. Results CBC & Chem 7: 12/27/24 05:15 12/27/24 05:15 Labs: Abnormal Lab Results - Last 24 Hours (Table) 12/26/24 12/26/24 12/26/24 Range/Units 13:25 13:25 13:25 WBC 19.61 H (4.50-10.00) 10*3/uL Hgb 15.3 H (12.0-15.0) g/dL MCH 32.6 H (27.0-32.0) pg MPV 9.2 L (9.5-12.2) fL Immature Gran # 0.10 H (0.00-0.04) 10*3/uL Neutrophils # 17.61 H (1.80-7.70) 10*3/uL Potassium 2.9 L (3.5-5.1) mmol/L Carbon Dioxide 21 L (22-30) mmol/L BUN 25 H (7-17) mg/dL Glucose 101 H (74-99) mg/dL C-Reactive Protein 1.5 H (<1.0) mg/dL Total Protein 6.2 L (6.3-8.2) g/dL Assessment and Plan Plan: 1patient presented the hospital with worsening pain to the left hip area and anterior thigh in this patient who recently did have a fall with evidence of a left psoas fluid collection reported as an abscess with a question of abscess versus possible hematoma as the symptoms started after a fall patient not ru nning any fever though did have elevated white count which may be increase in the case of hematoma as well however abscess not entirely excluded and will cover with antibiotic cover for both gram-positive as well as gram-negative while waiting for the workup to be completed this has been explained to the patient in the meantime. 2we will get IR evaluation for drainage of this fluid collection which should be sent for culture. 3 will empirically treat with the vancomycin as well as Zosyn however watch the kidney function closely on this antibiotic combination. We will follow on clinical condition and cultures to further adjust medication if needed Thank you for this consultation we will follow the patient along with you Dictation was produced using [employer] software. please excuse any grammatical, word or spelling errors. Time with Patient: Greater than 30
--- NOTE | 2024-12-27 10:31 | P.GSCN ---
History of Present Illness Consult date: 12/27/24 Reason for Consult: Lower extremity DVT Requesting physician: Carlos Enrique Doshi History of present illness: This is a pleasant 69-year-old female with a past medical history including rheumatoid arthritis, obesity, hyperlipidemia and hypertension who presented to the emergency department with complaints of left hip pain and left lower extremity swelling. [facility] surgery was consulted for left lower extremity DVT. Patient states the Tuesday which was about a week and a half ago she had taken a fall landing on her left side hitting her head, arm and left leg. Pain had progressively gotten worse with increased swelling of her left leg so she came into the emergency department for further evaluation. She had a venous duplex of the left lower extremity which was positive for deep vein thrombosis in the distal femoral vein to the external iliac vein. She also had a CT of the left hip that reported intrapelvic left psoas muscle abscess with extension into the inguinal region and anterior thigh. No acute osseous abnormality. Patient states swelling progressively was getting worse over the last couple days duration. She is having left hip pain. No previous history of deep vein thrombosis. She was started on a heparin drip for the DVT. It was discontinued around midnight according to nursing secondary to gross hematuria. Patient denies any shortness of breath or chest pain. She does have hip pain and continued swelling of the left lower extremity. Orthopedics was consulted secondary to psoas muscle abscess as well as infectious disease. Infectious disease recommended interventional radiology consultation for drainage of abscess. Patient has been afebrile. She did have noted leukocytosis on admission with WBC 19.6, hemoglobin 15.3 on admission with repeat 14.0 today. Patient also noted to be hypokalemic, replacing potassium. Infectious disease has started patient on IV antibiotics. Review of Systems A 14 point review systems was completed all pertinent positives and negatives as stated in the HPI. Past Medical History Past Medical History: Hyperlipidemia, Hypertension, Rheumatoid Arthritis (RA) Additional Past Medical History / Comment(s): KIDNEY STONE,STEROID INJECTION NOVEMBER 2015,SINUS PROBLEMS History of Any Multi-Drug Resistant Organisms: None Reported Past Surgical History: Joint Replacement, Orthopedic Surgery Additional Past Surgical History / Comment(s): RT KNEE SURG-PINS & WIRES PLACED -1999,LT ELVIRA 2013,Plates in R ankle in 2010, 10/2014 LT ELVIRA, RT TKA,. COLONOSCOPY, KIDNEY STONE REMOVED, L total knee 11/08 Past Anesthesia/Blood Transfusion Reactions: No Reported Reaction Past Psychological History: No Psychological Hx Reported Smoking Status: Never smoker Past Alcohol Use History: None Reported Additional Past Alcohol Use History / Comment(s): She is a lifelong nonsmoker, no medical marijuana, marijuana, street drug or alcohol use. Past Drug Use History: None Reported - Past Family History Father Family Medical History: Coronary Artery Disease (CAD), Eye Disorder Additional Family Medical History / Comment(s): Macular degeneration. Brother(s) Family Medical History: No Reported History Additional Family Medical History / Comment(s): Has 1 brother that from drug use. One brother is alive with no major medical problems. Patient does not have any sisters. Patient has twin daughters with no major medical problems. Mother Family Medical History: Cancer Additional Family Medical History / Comment(s): Mother at age 74 from thyroid cancer which had metastasized to her lungs. Medications and Allergies Home Medications Medication Instructions Recorded Confirmed Type Actemra Infusion 8mg/Kg 1 dose IV Q28D 12/26/24 12/26/24 History Ibuprofen [Motrin] 600 mg PO Q6H PRN 12/26/24 12/26/24 History Losartan-Hctz 50-12.5 mg [Hyzaar 0.5 tab PO DAILY 12/26/24 12/26/24 History 50-12.5] predniSONE 2.5 mg PO DAILY PRN 12/26/24 12/26/24 History Allergies Allergy/AdvReac Type Severity Reaction Status Date / Time adhesive AdvReac Mild blisters Verified 12/26/24 11:57 skin Surgical - Exam Vital Signs Temp Pulse Resp BP Pulse Ox 97.8 F 112 H 20 163/79 98 12/26/24 09:52 12/26/24 09:52 12/26/24 09:52 12/26/24 09:52 12/26/24 09:52 General appearance: The patient is alert, oriented, appears in no acute distress. Obese. HET: Head is normocephalic. Bruising on face and under both eyes. Pupils are equal and reactive. Neck: Supple. Heart: Regular. Lungs: Equal expansion, normal respiratory effort. Abdomen: Soft, nontender, nondistended. Extremities: Left lower extremity swelling from thigh down through the foot, pitting edema worse in the lower extremity and foot. Nonpalpable PT or DP pulse. DP Doppler signal present. Nontender to palpation. Skin: Lower back with rash, dry patchy skin. Neurological: No focal deficits. Strength and sensation are grossly intact. Results - Labs 12/27/24 05:15 12/27/24 05:15 Abnormal Lab Results - Last 24 Hours (Table) 12/26/24 12/26/24 12/26/24 Range/Units 13:25 13:25 13:25 WBC 19.61 H (4.50-10.00) 10*3/uL Hgb 15.3 H (12.0-15.0) g/dL MCH 32.6 H (27.0-32.0) pg MPV 9.2 L (9.5-12.2) fL Immature Gran # 0.10 H (0.00-0.04) 10*3/uL Neutrophils # 17.61 H (1.80-7.70) 10*3/uL APTT (22.0-30.0) sec Potassium 2.9 L (3.5-5.1) mmol/L Carbon Dioxide 21 L (22-30) mmol/L BUN 25 H (7-17) mg/dL Glucose 101 H (74-99) mg/dL C-Reactive Protein 1.5 H (<1.0) mg/dL Total Protein 6.2 L (6.3-8.2) g/dL 12/26/24 12/27/24 12/27/24 Range/Units 19:54 01:10 01:10 WBC 12.70 H (4.50-10.00) 10*3/uL Hgb (12.0-15.0) g/dL MCH 32.1 H (27.0-32.0) pg MPV 9.4 L (9.5-12.2) fL Immature Gran # (0.00-0.04) 10*3/uL Neutrophils # (1.80-7.70) 10*3/uL APTT 88.3 H 69.1 H (22.0-30.0) sec Potassium (3.5-5.1) mmol/L Carbon Dioxide (22-30) mmol/L BUN (7-17) mg/dL Glucose (74-99) mg/dL C-Reactive Protein (<1.0) mg/dL Total Protein (6.3-8.2) g/dL 12/27/24 Range/Units 01:10 WBC (4.50-10.00) 10*3/uL Hgb (12.0-15.0) g/dL MCH (27.0-32.0) pg MPV (9.5-12.2) fL Immature Gran # (0.00-0.04) 10*3/uL Neutrophils # (1.80-7.70) 10*3/uL APTT (22.0-30.0) sec Potassium 2.7 L* (3.5-5.1) mmol/L Carbon Dioxide 21 L (22-30) mmol/L BUN 24 H (7-17) mg/dL Glucose 102 H (74-99) mg/dL C-Reactive Protein (<1.0) mg/dL Total Protein (6.3-8.2) g/dL Diabetes panel 12/26/24 12/27/24 12/27/24 Range/Units : 01:10 05:15 Sodium 141 138 (137-145) mmol/L Potassium 2.9 L 2.7 L* (3.5-5.1) mmol/L Chloride 106 107 (98-107) mmol/L Carbon Dioxide 21 L 21 L (22-30) mmol/L BUN 25 H 24 H (7-17) mg/dL Creatinine 0.58 0.64 0.62 (0.52-1.04) mg/dL Glucose 101 H 102 H (74-99) mg/dL Calcium 10.1 9.2 (8.4-10.2) mg/dL AST 22 (14-36) U/L ALT 26 (4-34) U/L Alkaline Phosphatase 89 (38-126) U/L Total Protein 6.2 L (6.3-8.2) g/dL Albumin 3.9 (3.5-5.0) g/dL Calcium panel 12/26/24 12/27/24 Range/Units 13: 01:10 Calcium 10.1 9.2 (8.4-10.2) mg/dL Albumin 3.9 (3.5-5.0) g/dL Pituitary panel 12/26/24 12/27/24 12/27/24 Range/Units 13: 01:10 05:15 Sodium 141 138 (137-145) mmol/L Potassium 2.9 L 2.7 L* (3.5-5.1) mmol/L Chloride 106 107 (98-107) mmol/L Carbon Dioxide 21 L 21 L (22-30) mmol/L BUN 25 H 24 H (7-17) mg/dL Creatinine 0.58 0.64 0.62 (0.52-1.04) mg/dL Glucose 101 H 102 H (74-99) mg/dL Calcium 10.1 9.2 (8.4-10.2) mg/dL Adrenal panel 12/26/24 12/27/24 12/27/24 Range/Units 13: 01:10 05:15 Sodium 141 138 (137-145) mmol/L Potassium 2.9 L 2.7 L* (3.5-5.1) mmol/L Chloride 106 107 (98-107) mmol/L Carbon Dioxide 21 L 21 L (22-30) mmol/L BUN 25 H 24 H (7-17) mg/dL Creatinine 0.58 0.64 0.62 (0.52-1.04) mg/dL Glucose 101 H 102 H (74-99) mg/dL Calcium 10.1 9.2 (8.4-10.2) mg/dL Total Bilirubin 1.1 (0.2-1.3) mg/dL AST 22 (14-36) U/L ALT 26 (4-34) U/L Alkaline Phosphatase 89 (38-126) U/L Total Protein 6.2 L (6.3-8.2) g/dL Albumin 3.9 (3.5-5.0) g/dL Assessment and Plan Assessment: 1. Left lower extremity DVT likely provoked from psoas muscle abscess/hematoma compression 2. Intrapelvic left psoas muscle abscess with extension into the inguinal region and anterior thigh per left hip CT report 3. Left lower extremity pain 4. Hypokalemia 5. Recent fall 6. History of previous hip replacement 7. Obesity Plan: 1. Agree with drainage of abscess/fluid collection per interventional radiology 2. Resume heparin as soon as possible for DVT 3. Elevate left lower extremity 4. Apply thigh-high DIANE hose to left lower extremity 5. Continue with recommendations from orthopedics 6. Urinalysis ordered 7. Replace potassium per protocol 8. Daily CBC, CMP 9. Further recommendations forthcoming based on clinical course Thank you for this consultation, we will continue to follow along. The impression and plan of care has been dictated as directed. I performed a history and examination of this patient, discussed the same with the dictator. I agree with the dictator's note ,documented as a scribe. Any additional findings or plans will be noted.
[2024-12-27] MEDS: HYDROmorphone 0.5 MG/0.5 ML SYRINGE IVP STA (10:44)
--- NOTE | 2024-12-27 11:28 | CT ---
EXAMINATION TYPE: CT guided abscess drainage DATE OF EXAM: 12/27/2024 11:22 AM COMPARISON: Prior CT/US. CLINICAL INDICATION:Female, 69 years old with history of See IR consult for order details.; left psoa s muscle., [facility] TECHNIQUE: CT-guided abscess drainage with pigtail catheter placement. CT DLP: 1439.0 mGycm, Automated exposure control for dose reduction was used. Contrast used: mL of , none Oral contrast used: none ATTENDING: Bernardo Kramer D.O. PROCEDURE: DLP administered was [address] localizer images were taken which showed safest allowable access to the psoas fluid collec tion. The patient was prepped, draped in the usual sterile fashion, and locally anesthetized. A need le was used to access the anterior psoas Purulent fluid. Approximately 2 mL of purulent fluid was drained and sent to the lab for analysis. There was no bloo d loss and post-procedure hemostasis was achieved. The patient tolerated the procedure well without complication. Patient was transferred to the general medical floor in stable condition. IMPRESSION: CT guided aspiration of left psoas muscle fluid collection. Pathology pending.. [facility], , 12/27/2024 11:26 AM
[2024-12-27] MEDS: POTASSIUM CHLORIDE ER 20 MEQ TAB.ER PO STA (12:31)
[2024-12-27] MEDS: HEPARIN SODIUM 1,000 UN/ML (10ML VL) IV PRN (14:16)
--- NOTE | 2024-12-27 15:37 | P.PN ---
Subjective Progress Note Date: 12/27/24 Principal diagnosis: Reason for follow-up is left iliopsoas abscess/septic hip Patient is a 69-year-old female with a past medical history significant for hypertension hyperlipidemia RA in this patient who did have bilateral knee and hip replacement and did have a fall about a week ago hitting her left side of the body patient did have a CT of the left hip suggestive of left iliopsoas abscess prompting this consultation. On today's evaluation that is 12/27/2024,the patient remains to be afebrile, patient is on room air not requiring supplemental oxygen and denies any shortness of breath no chest pain or cough.Patient denies having any nausea or vomiting, no abdominal pain and no diarrhea, pain to the left hip pain is about the same. Patient white count is 11.43 creatinine 0.62 Objective - Vital Signs Vital signs: Vital Signs Temp 98.4 F 12/27/24 13:12 Pulse 93 12/27/24 13:12 Resp 16 12/27/24 13:12 BP 120/72 12/27/24 13:12 Pulse Ox 96 12/27/24 13:12 FiO2 Intake & Output 12/26/24 12/27/24 12/27/24 18:59 06:59 18:59 Intake Total 168.942 4.657 Output Total 250 Balance -81.058 4.657 Weight 99.79 kg 99.79 kg Intake: Intake, IV Titration 168.942 4.657 Amount Heparin Sod,Pork in 0.45% 168.942 4.657 NaCl 25,000 unit In 0.45 % NaCl 1 250ml.bag @ 18 UNITS/KG/HR 17.962 mls/hr IV .[id number] [facility] Rx#: [id number] Output: Urine 250 Other: Voiding Method Bedside Commode Bedside Commode # Voids 1 - Exam GENERAL DESCRIPTION: An elderly female lying in bed in no distress RESPIRATORY SYSTEM: Unlabored breathing , decreased breath sounds at bases HEART: S1 S2 regular rate and rhythm , ABDOMEN: Soft , no tenderness EXTREMITIES: No edema feet - Labs CBC & Chem 7: 12/27/24 05:15 12/27/24 05:15 Labs: Abnormal Lab Results - Last 24 Hours (Table) 12/26/24 12/26/24 12/27/24 Range/Units 13:25 19:54 01:10 WBC 12.70 H (4.50-10.00) 10*3/uL MCH 32.1 H (27.0-32.0) pg MPV 9.4 L (9.5-12.2) fL Immature Gran # (0.00-0.04) X 10*3/uL Neutrophils # (1.80-7.70) X 10*3/uL APTT 88.3 H (22.0-30.0) sec Potassium (3.5-5.1) mmol/L Carbon Dioxide (22-30) mmol/L BUN (7-17) mg/dL Glucose (74-99) mg/dL C-Reactive Protein 1.5 H (<1.0) mg/dL Urine Appearance (Clear) Urine RBC (0-5) /hpf Urine WBC (0-5) /hpf Urine Mucus (None) /hpf 12/27/24 12/27/24 12/27/24 Range/Units 01:10 01:10 05:15 WBC 11.43 H (4.50-10.00) 10*3/uL MCH (27.0-32.0) pg MPV 9.3 L (9.5-12.2) fL Immature Gran # 0.05 H (0.00-0.04) X 10*3/uL Neutrophils # 9.28 H (1.80-7.70) X 10*3/uL APTT 69.1 H (22.0-30.0) sec Potassium 2.7 L* (3.5-5.1) mmol/L Carbon Dioxide 21 L (22-30) mmol/L BUN 24 H (7-17) mg/dL Glucose 102 H (74-99) mg/dL C-Reactive Protein (<1.0) mg/dL Urine Appearance (Clear) Urine RBC (0-5) /hpf Urine WBC (0-5) /hpf Urine Mucus (None) /hpf 12/27/24 12/27/24 Range/Units 08:40 12:38 WBC (4.50-10.00) 10*3/uL MCH (27.0-32.0) pg MPV (9.5-12.2) fL Immature Gran # (0.00-0.04) X 10*3/uL Neutrophils # (1.80-7.70) X 10*3/uL APTT 20.3 L (22.0-30.0) sec Potassium (3.5-5.1) mmol/L Carbon Dioxide (22-30) mmol/L BUN (7-17) mg/dL Glucose (74-99) mg/dL C-Reactive Protein (<1.0) mg/dL Urine Appearance Cloudy H (Clear) Urine RBC >182 H (0-5) /hpf Urine WBC 51 H (0-5) /hpf Urine Mucus Rare H (None) /hpf Assessment and Plan (1) Leukocytosis Current Visit: Yes Status: Acute Code(s): D72.829 - ELEVATED WHITE BLOOD CELL COUNT, UNSPECIFIED SNOMED Code(s): 444031210 (2) Psoas abscess, left Current Visit: Yes Status: Acute Code(s): K68.12 - PSOAS MUSCLE ABSCESS SNOMED Code(s): 051223391 Plan: 1patient presented the hospital with worsening pain to the left hip area and anterior thigh in this patient who recently did have a fall with evidence of a left psoas fluid collection reported as an abscess with a question of abscess versus possible hematoma as the symptoms started after a fall patient not running any fever though did have elevated white count which may be increase in the case of hematoma as well however abscess not entirely excluded and will cover with antibiotic cover for both gram-positive as well as gram-negative 2patient is status post IR drainage of this fluid with concern for possible communicating with the hip joint orthopedics already on the case 3patient is empirically covered with vancomycin Zosyn switched to cefepime while waiting for the workup to be completed Dictation was produced using [employer] dictation software. please excuse any gra mmatical, word or spelling errors. Time with Patient: Less than 30
[2024-12-27] MEDS: CEFEPIME 2 GM in SODIUM CHLORIDE 0.9% 100 ML IVPB SCH (17:04)
[2024-12-27] MEDS: POTASSIUM CHLORIDE ER 20 MEQ TAB.ER PO SCH (17:04)
[2024-12-27 17:11] LABS: Appearance,BF Turbid (Clear)
[2024-12-27] MEDS ORDERED: ONDANSETRON 4 MG/2 ML VIAL IVP PRN (22:26)
[2024-12-27] MEDS: HYDROcodone/APAP 5-325MG 1 EACH TAB PO PRN (23:18)
[2024-12-27] MEDS: PANTOPRAZOLE 40 MG/10 ML VIAL IVP SCH (23:19)
--- NOTE | 2024-12-28 05:25 | P.HPIM ---
History of Present Illness H&P Date: 12/27/24 This is a pleasant 69-year-old female who presented to the emergency department with recent fall approximately 2 weeks ago and has been having left-sided hip pain and underwent imaging noted to have a left psoas abscess. Patient reports she follows with Dr. Richard Amador in the outpatient setting with a past medical history of hyperlipidemia, hypertension, rheumatoid arthritis, previous orthopedic interventions of the knees and hips, morbid obesity, denies alcohol or cigarette use or any illicit drugs. Hip x-ray revealed no acute posttraumatic osseous abnormality of the left hip with no fractures noted. Venous Doppler was performed as there has been increased swelling and pain and was noted to be positive on the left from the IV to distal femoral vein and has been started on IV heparin. CT of the head performed showing an intrapelvic left psoas muscle abscess with extension into the inguinal region and anterior thigh. Labs reviewed on admission reveal a white count of 19.61, hemoglobin stable at 15.3, platelets 215, sodium 141 with a potassium of 2.9 with replacement and repeat is 4.4, BUN is 25 with a creatinine of 0.58. Urinalysis was also performed and urine was dark and cloudy with elevated white count, will add urine culture. Interventional radiology is consulted for possible abscess drainage with infectious disease following maintained on antibiotics and recomme nding culture of this abscess. Vascular surgery along with orthopedics have been consulted and patient is being admitted. REVIEW OF SYSTEMS: CONSTITUTIONAL: No fever, no malaise, no fatigue. HEENT: No recent visual problems or hearing problems. Denied any sore throat. CARDIOVASCULAR: No chest pain, orthopnea, PND, no palpitations, no syncope. PULMONARY: No shortness of breath, no cough, no hemoptysis. GASTROINTESTINAL: No diarrhea, no nausea, no vomiting, no abdominal pain. NEUROLOGICAL: No headaches, no weakness, no numbness. HEMATOLOGICAL: Denies any bleeding or petechiae. GENITOURINARY: Denies any burning micturition, frequency, or urgency. MUSCULOSKELETAL/RHEUMATOLOGICAL: Reports of left hip pain, swelling, and reports left groin and muscle pain in that area ENDOCRINE: Denies any polyuria or polydipsia. The rest of the 14-point review of systems is negative. PHYSICAL EXAMINATION: GENERAL: The patient is alert and oriented x3, not in any acute distress. Well developed, morbidly obese HEENT: Pupils are round and equally reacting to light. EOMI. No scleral icterus. No conjunctival pallor. Normocephalic, atraumatic. No pharyngeal erythema. No thyromegaly. CARDIOVASCULAR: S1 and S2 muffled PULMONARY: Diminished breath sounds bilaterally otherwise chest is clear to auscultation, no wheezing or crackles. ABDOMEN: Soft, obese, nontender, nondistended, normoactive bowel sounds. No palpable organomegaly. MUSCULOSKELETAL: Left hip swelling noted with tenderness on palpation EXTREMITIES: No cyanosis, clubbing, or pedal edema. Left lower extremity edema NEUROLOGICAL: Gross neurological examination did not reveal any focal deficits. Diffusely weak SKIN: No rashes. Assessment: Left hip pain status post fall 2 weeks ago with left intrapelvic psoas abscess Left lower extremity swelling and pain with positive DVT noted, started on IV heparin Abnormal urinalysis with reported pain and discomfort with voiding, possible acute urinary tract infection, cultures pending Leukocytosis, possibly secondary to assessment #1, left psoas abscess History of hyperlipidemia Hypertension history History of rheumatoid arthritis Hypokalemia, being replaced and improved Morbid obesity with a BMI of 40.2 GI prophylaxis DVT prophylaxis on heparin Full code Plan: Patient was admitted with multiple consultations following including vascular surgery, infectious disease, orthopedics, interventional radiology. Patient is scheduled to undergo left psoas abscess drainage today and will await cultures Patient is maintained on IV heparin per vascular surgery and okay to resume this evening postdrainage and will monitor closely for any bleeding Continue to elevate left lower extremity while at rest. Continue bedrest for now until cleared by consultations Patient is continued on antibiotics per infectious disease and will await cultures determine appropriate antibiotics on discharge Case management consulted to evaluate and verify coverage if patient is requirin g IV antibiotics outpatient or if patient will require ECF. Follow-up on repeat labs and replace electrolytes per protocol Home medications reviewed and resumed as appropriate The impression and plan of care has been dictated by Naye Meng Nurse Practitioner as directed. Dr. Nereyda MD I have performed a history and examination and MDM of this patient, discussed the same with the dictator, and agree with the dictator's assessment and plan as written ,documented as a scribe. Based on total visit time, I have performed more than 50% of the visit. A Past Medical History Past Medical History: Hyperlipidemia, Hypertension, Rheumatoid Arthritis (RA) Additional Past Medical History / Comment(s): KIDNEY STONE,STEROID INJECTION NOVEMBER 2015,SINUS PROBLEMS History of Any Multi-Drug Resistant Organisms: None Reported Past Surgical History: Joint Replacement, Orthopedic Surgery Additional Past Surgical History / Comment(s): RT KNEE SURG-PINS & WIRES PLACED -1999,LT ELVIRA 2013,Plates in R ankle in 2010, 10/2014 LT ELVIRA, RT TKA,. COLONOSCOPY, KIDNEY STONE REMOVED, L total knee 11/08 Past Anesthesia/Blood Transfusion Reactions: No Reported Reaction Past Psychological History: No Psychological Hx Reported Smoking Status: Never smoker Past Alcohol Use History: None Reported Past Drug Use History: None Reported - Past Family History Father Family Medical History: Coronary Artery Disease (CAD), Eye Disorder Additional Family Medical History / Comment(s): Macular degeneration. Brother(s) Family Medical History: No Reported History Additional Family Medical History / Comment(s): Has 1 brother that from drug use. One brother is alive with no major medical problems. Patient does not have any sisters. Patient has twin daughters with no major medical pro blems. Mother Family Medical History: Cancer Additional Family Medical History / Comment(s): Mother at age 74 from thyroid cancer which had metastasized to her lungs. Medications and Allergies Home Medications Medication Instructions Recorded Confirmed Type Actemra Infusion 8mg/Kg 1 dose IV Q28D 12/26/24 12/26/24 History Ibuprofen [Motrin] 600 mg PO Q6H PRN 12/26/24 12/26/24 History Losartan-Hctz 50-12.5 mg [Hyzaar 0.5 tab PO DAILY 12/26/24 12/26/24 History 50-12.5] predniSONE 2.5 mg PO DAILY PRN 12/26/24 12/26/24 History Allergies Allergy/AdvReac Type Severity Reaction Status Date / Time adhesive AdvReac Mild blisters Verified 12/26/24 11:57 skin Physical Exam Vitals: Vital Signs Temp Pulse Pulse Resp BP BP Pulse Ox 12/27/24 07:16 98.6 F 98 15 112/73 94 L 12/27/24 00:39 97.4 F L 100 112/74 95 12/26/24 18:58 98.1 F 77 17 124/63 98 12/26/24 18:04 98.1 F 104 H 18 133/69 100 06/04/25 15:02 91 16 128/42 98 12/26/24 13:26 87 18 143/101 96 Intake and Output 12/26/24 12/27/24 12/27/24 22:59 06:59 14:59 Intake Total 97.893 71.049 Output Total 250 Balance 97.893 -178.951 Intake: Intake, IV Titration 97.893 71.049 Amount Heparin Sod,Pork in 0.45% 97.893 71.049 NaCl 25,000 unit In 0.45 % NaCl 1 250ml.bag @ 18 UNITS/KG/HR 17.962 mls/hr IV .[id number] [facility] Rx#: [id number] Output: Urine 250 Other: Voiding Method Bedside Commode Bedside Commode # Voids 1 Weight 99.79 kg Results CBC & Chem 7: 12/27/24 05:15 12/27/24 20:22 Labs: Abnormal Lab Results - Last 24 Hours (Table) 12/26/24 12/26/24 12/26/24 Range/Units 13:25 13:25 13:25 WBC 19.61 H (4.50-10.00) 10*3/uL Hgb 15.3 H (12.0-15.0) g/dL MCH 32.6 H (27.0-32.0) pg MPV 9.2 L (9.5-12.2) fL Immature Gran # 0.10 H (0.00-0.04) 10*3/uL Neutrophils # 17.61 H (1.80-7.70) 10*3/uL APTT (22.0-30.0) sec Potassium 2.9 L (3.5-5.1) mmol/L Carbon Dioxide 21 L (22-30) mmol/L BUN 25 H (7-17) mg/dL Glucose 101 H (74-99) mg/dL C-Reactive Protein 1.5 H (<1.0) mg/dL Total Protein 6.2 L (6.3-8.2) g/dL Urine Appearance (Clear) Urine RBC (0-5) /hpf Urine WBC (0-5) /hpf Urine Mucus (None) /hpf 12/26/24 12/27/24 12/27/24 Range/Units 19:54 01:10 01:10 WBC 12.70 H (4.50-10.00) 10*3/uL Hgb (12.0-15.0) g/dL MCH 32.1 H (27.0-32.0) pg MPV 9.4 L (9.5-12.2) fL Immature Gran # (0.00-0.04) 10*3/uL Neutrophils # (1.80-7.70) 10*3/uL APTT 88.3 H 69.1 H (22.0-30.0) sec Potassium (3.5-5.1) mmol/L Carbon Dioxide (22-30) mmol/L BUN (7-17) mg/dL Glucose (74-99) mg/dL C-Reactive Protein (<1.0) mg/dL Total Protein (6.3-8.2) g/dL Urine Appearance (Clear) Urine RBC (0-5) /hpf Urine WBC (0-5) /hpf Urine Mucus (None) /hpf 12/27/24 12/27/24 12/27/24 Range/Units 01:10 05:15 08:40 WBC 11.43 H (4.50-10.00) 10*3/uL Hgb (12.0-15.0) g/dL MCH (27.0-32.0) pg MPV 9.3 L (9.5-12.2) fL Immature Gran # 0.05 H (0.00-0.04) 10*3/uL Neutrophils # 9.28 H (1.80-7.70) 10*3/uL APTT (22.0-30.0) sec Potassium 2.7 L* (3.5-5.1) mmol/L Carbon Dioxide 21 L (22-30) mmol/L BUN 24 H (7-17) mg/dL Glucose 102 H (74-99) mg/dL C-Reactive Protein (<1.0) mg/dL Total Protein (6.3-8.2) g/dL Urine Appearance Cloudy H (Clear) Urine RBC >182 H (0-5) /hpf Urine WBC 51 H (0-5) /hpf Urine Mucus Rare H (None) /hpf Thrombosis Risk Factor Assmnt - Choose All That Apply Any of the Below Risk Factors Present?: Yes Each Factor Represents 1 point: Obesity (BMI >25), Swollen legs (current) Each Risk Factor Represents 2 Points: Age 61-74 years Each Risk Factor Represents 3 Points: History of DVT/PE Thrombosis Risk Factor Assessment Total Risk Factor Score: 7 Thrombosis Risk Factor Assessment Level: High Risk
[2024-12-28 08:30] LABS: Basophils # (A) 0.04 X 10*3/uL (0.00-0.10); Basophils % (A) 0.3 %; Eosinophils # (A) 0.24 X 10*3/uL (0.04-0.35); Eosinophils % (A) 1.7 %; HCT 37.8 % (37.2-46.3); HGB 12.6 g/dL (12.0-15.0); Lymphocytes # (A) 1.51 X 10*3/uL (0.90-5.00); Lymphocytes % (A) 10.9 %; MCH 31.3 pg (27.0-32.0); MCHC 33.3 g/dL (32.0-37.0); Monocytes # (A) 0.61 X 10*3/uL (0.20-1.00); Monocytes % (A) 4.4 %; NRBC Per 100 WBC 0 X 10*3/uL (0.00-0.01); Neutrophils # (A) 11.35 X 10*3/uL (1.80-7.70); Neutrophils % (A) 82.4 %; Platelet Count 208 X 10*3/uL (140-440); RBC 4.02 X 10*6/uL (4.10-5.20); RDW 12.6 % (11.5-14.5); WBC 13.79 X 10*3/uL (4.50-10.00)
--- NOTE | 2024-12-28 10:22 | P.PN ---
Subjective Progress Note Date: 12/28/24 Principal diagnosis: Left lower extremity DVT Patient is seen and examined today as a follow-up. Still has swelling to her left lower extremity. Thigh-high DIANE hose in place with leg elevation. Yesterday she underwent CT-guided abscess drainage with reported 2 mL of purulent fluid drained. Cultures and pathology pending. Fluid WBC [id number]. Patient states hematuria is improving. She has been afebrile. Remains on heparin drip. She denies any shortness of breath or chest pain. Objective - Vital Signs Vital signs: Vital Signs Temp 97.4 F L 12/28/24 07:00 Pulse 76 12/28/24 07:00 Resp 15 12/28/24 07:00 BP 110/73 12/28/24 07:00 Pulse Ox 97 12/28/24 07:00 FiO2 Intake & Output 12/27/24 12/28/24 12/28/24 18:59 06:59 18:59 Intake Total 4.657 242.837 Balance 4.657 242.837 Intake: Intake, IV Titration 4.657 242.837 Amount Heparin Sod,Pork in 0.45% 4.657 242.837 NaCl 25,000 unit In 0.45 % NaCl 1 250ml.bag @ 18 UNITS/KG/HR 17.962 mls/hr IV .[id number] [facility] Rx#: [id number] Other: Voiding Method Bedside Commode Toilet # Voids 4 1 # Bowel Movements 1 - Exam General appearance: The patient is alert, oriented, appears in no acute distress. HET: Head is normocephalic and atraumatic. Neck: Supple. Heart: Regular. Lungs: Equal expansion, normal respiratory effort. Abdomen: Soft,nondistended. Extremities: Left lower extremity swelling along entire length of leg and foot. Thigh-high DIANE hose in place. Neurological: Alert and oriented. - Labs CBC & Chem 7: 12/28/24 03:10 12/27/24 20:22 Labs: Abnormal Lab Results - Last 24 Hours (Table) 12/27/24 12/27/24 12/27/24 Range/Units 11:05 12:38 14:43 WBC (4.50-10.00) X 10*3/uL RBC (4.10-5.20) X 10*6/uL Neutrophils # (1.80-7.70) X 10*3/uL APTT 20.3 L (22.0-30.0) sec Potassium 3.3 L (3.5-5.1) mmol/L Fluid Appearance Turbid A (Clear) 12/27/24 12/28/24 12/28/24 Range/Units 20:22 03:10 03:10 WBC 13.79 H (4.50-10.00) X 10*3/uL RBC 4.02 L (4.10-5.20) X 10*6/uL Neutrophils # 11.35 H (1.80-7.70) X 10*3/uL APTT 152.0 H* 91.0 H (22.0-30.0) sec Potassium (3.5-5.1) mmol/L Fluid Appearance (Clear) 12/28/24 Range/Units 08:28 WBC (4.50-10.00) X 10*3/uL RBC (4.10-5.20) X 10*6/uL Neutrophils # (1.80-7.70) X 10*3/uL APTT 49.7 H (22.0-30.0) sec Potassium (3.5-5.1) mmol/L Fluid Appearance (Clear) Microbiology - Last 24 Hours (Table) 12/26/24 13:25 Blood Culture - Preliminary Blood Assessment and Plan Assessment: 1. Left lower extremity DVT likely provoked from psoas muscle abscess compression 2. Intrapelvic left psoas muscle abscess with extension into the inguinal region and anterior thigh per left hip CT report 3. Left lower extremity pain 4. Hypokalemia 5. Recent fall 6. History of previous hip replacement 7. Obesity Plan: 1. Patient is status post drainage of fluid collection in left psoas muscle. 2. Continue with heparin drip for now 3. Elevate left lower extremity 4. Continue thigh-high DIANE hose to left lower extremity 5. Continue with recommendations from orthopedics Thank you for this consultation, we will continue to follow along and make further recommendations along the way. The impression and plan of care has been dictated as directed. Dr. Harper Gardner I performed a history and examination of this patient, discussed the same with the dictator. I agree with the dictator's note ,documented as a scribe. Any additional findings or plans will be noted.
[2024-12-28 11:08] LABS: Magnesium 1.9 mg/dL (1.5-2.4)
[2024-12-28 11:09] LABS: ALT 16 U/L (8-44); AST 18 U/L (13-35); Albumin 3.2 g/dL (3.8-4.9); Albumin/Globulin Ratio 1.88 Ratio (1.60-3.17); Alkaline Phosphatase 64 U/L (41-126); Blood Urea Nitrogen 16.1 mg/dL (9.0-27.0); Calcium 8.4 mg/dL (8.7-10.3); Carbon Dioxide 17.1 mmol/L (21.6-31.8); Chloride 113 mmol/L (96-109); Globulin 1.7 g/dL (1.6-3.3); Glucose 104 mg/dL (70-110); Potassium 4.2 mmol/L (3.5-5.5); Sodium 141 mmol/L (135-145); Total Bilirubin 0.4 mg/dL (0.3-1.2); Total Protein 4.9 g/dL (6.2-8.2)
--- NOTE | 2024-12-28 14:09 | P.PN ---
Subjective Progress Note Date: 12/28/24 Principal diagnosis: Left psoas abscess, left lower extremity DVT, history of left total hip arthroplasty Patient was evaluated today at bedside, her daughter was also present, she was resting in her hospital bed. She states that the discomfort in the left anterior thigh is about the same, she continues to complain of swelling in that area. Patient is scheduled later today for the white blood cell nuclear scan, she did undergo the aspiration procedure by interventional radiology yesterday, awaiting culture and sensitivity. Dr. Nguyen was also able to evaluate the patient today at bedside. Objective - Vital Signs Vital signs: Vital Signs Temp 97.9 F 12/28/24 13:23 Pulse 98 12/28/24 13:23 Resp 16 12/28/24 13:23 BP 131/81 12/28/24 13:23 Pulse Ox 98 12/28/24 13:23 FiO2 Intake & Output 12/27/24 12/28/24 12/28/24 18:59 06:59 18:59 Intake Total 4.657 242.837 Balance 4.657 242.837 Intake: Intake, IV Titration 4.657 242.837 Amount Heparin Sod,Pork in 0.45% 4.657 242.837 NaCl 25,000 unit In 0.45 % NaCl 1 250ml.bag @ 18 UNITS/KG/HR 17.962 mls/hr IV .[id number] [facility] Rx#: [id number] Other: Voiding Method Bedside Commode Toilet Toilet # Voids 4 1 # Bowel Movements 1 - Exam Left lower extremity: Generalized soft tissue swelling present throughout most of the extremity worse below the knee, there is some generalized erythema in the lower leg with pitting edema. She has a well-healed incision over the anterior aspect of the knee with generalized swelling. Well-healed incision over the lateral aspect of the left hip, there is no openings in the skin, there is no erythema, there is no areas of fluctuance appreciated Range of motion was difficult for the patient mainly with extension and flexion of the hip along with extension of the knee. She was able to flex the knee. Plantarflexion, dorsiflexion, EHL, FHL are intact. Both logroll maneuver of the extremity along with deep flexion along with internal and external rotation of the hip reproduces no groin pain. Patient has generalized tenderness with palpation to the areas of swelling in the lower leg, she does demonstrate some discomfort in the thigh with palpation. Calf is swollen, no significant tenderness with palpation on exam Sensory exam to light touch throughout that extremity is intact, skin is warm to touch - Labs CBC & Chem 7: 12/28/24 03:10 12/28/24 03:10 Labs: Abnormal Lab Results - Last 24 Hours (Table) 12/27/24 12/27/24 12/27/24 Range/Units 11:05 14:43 20:22 WBC (4.50-10.00) X 10*3/uL RBC (4.10-5.20) X 10*6/uL Neutrophils # (1.80-7.70) X 10*3/uL APTT 152.0 H* (22.0-30.0) sec Potassium 3.3 L (3.5-5.1) mmol/L Chloride (96-109) mmol/L Carbon Dioxide (21.6-31.8) mmol/L Creatinine (0.6-1.5) mg/dL BUN/Creatinine Ratio (12.00-20.00) Ratio Calcium (8.7-10.3) mg/dL Total Protein (6.2-8.2) g/dL Albumin (3.8-4.9) g/dL Fluid Appearance Turbid A (Clear) 12/28/24 12/28/24 12/28/24 Range/Units 03:10 03:10 03:10 WBC 13.79 H (4.50-10.00) X 10*3/uL RBC 4.02 L (4.10-5.20) X 10*6/uL Neutrophils # 11.35 H (1.80-7.70) X 10*3/uL APTT 91.0 H (22.0-30.0) sec Potassium (3.5-5.1) mmol/L Chloride 113 H (96-109) mmol/L Carbon Dioxide 17.1 L (21.6-31.8) mmol/L Creatinine 0.5 L (0.6-1.5) mg/dL BUN/Creatinine Ratio 32.20 H (12.00-20.00) Ratio Calcium 8.4 L (8.7-10.3) mg/dL Total Protein 4.9 L (6.2-8.2) g/dL Albumin 3.2 L (3.8-4.9) g/dL Fluid Appearance (Clear) 12/28/24 Range/Units 08:28 WBC (4.50-10.00) X 10*3/uL RBC (4.10-5.20) X 10*6/uL Neutrophils # (1.80-7.70) X 10*3/uL APTT 49.7 H (22.0-30.0) sec Potassium (3.5-5.1) mmol/L Chloride (96-109) mmol/L Carbon Dioxide (21.6-31.8) mmol/L Creatinine (0.6-1.5) mg/dL BUN/Creatinine Ratio (12.00-20.00) Ratio Calcium (8.7-10.3) mg/dL Total Protein (6.2-8.2) g/dL Albumin (3.8-4.9) g/dL Fluid Appearance (Clear) Microbiology - Last 24 Hours (Table) 12/27/24 11:05 Gram Stain - Preliminary Aspirate 12/27/24 08:40 Urine Culture - Final Urine,Voided 12/26/24 13:25 Blood Culture - Preliminary Blood Assessment and Plan Assessment: Left lower extremity pain Left lower extremity swelling/edema Left lower extremity DVT Left psoas muscle abscess Concerns for left hip periprosthetic infection Multiple medical comorbidities Plan: Await WBC scan result Pain control, oral and IV medication as needed DVT prophylaxis per primary medical service Other medical specialty recommendations appreciated I had a long discussion with both the patient and the daughter today at bedside regarding her current issue. Consult has been placed for general surgery for evaluation of psoas abscess. I discussed with the patient today that this may require surgical intervention, and this would be up to the general surgery team and their recommendations. Clinically there is a low concern for a periprosthetic infection involving the left hip. Discussion was had with the patient though if there are further concerns for infection involving the left hip that I would recommend patient being transferred to a tertiary care facility for further workup. Await general surgery recommendations Further recommendations to follow Time with Patient: Less than 30
--- NOTE | 2024-12-28 15:24 | P.PN ---
Subjective Progress Note Date: 12/28/24 Principal diagnosis: Reason for follow-up is left iliopsoas abscess/septic hip Patient is a 69-year-old female with a past medical history significant for hypertension hyperlipidemia RA in this patient who did have bilateral knee and hip replacement and did have a fall about a week ago hitting her left side of the body patient did have a CT of the left hip suggestive of left iliopsoas abscess prompting this consultation. On today's evaluation that is 12/28/2024, the patient continues to be afebrile, the patient is on room air and breathing comfortably, the Pt denies having any chest pain or cough, the patient denies having any abdominal pain no vomiting or any diarrhea, pain to the left hip area is about the same. Patient white count is 13.7, creatinine 0.5 CT-guided aspirate fluid culture currently pending Objective - Vital Signs Vital signs: Vital Signs Temp 97.4 F L 12/28/24 07:00 Pulse 76 12/28/24 08:17 Resp 15 12/28/24 08:17 BP 110/73 12/28/24 07:00 Pulse Ox 97 12/28/24 07:00 FiO2 Intake & Output 12/27/24 12/28/24 12/28/24 18:59 06:59 18:59 Intake Total 4.657 242.837 Balance 4.657 242.837 Intake: Intake, IV Titration 4.657 242.837 Amount Heparin Sod,Pork in 0.45% 4.657 242.837 NaCl 25,000 unit In 0.45 % NaCl 1 250ml.bag @ 18 UNITS/KG/HR 17.962 mls/hr IV .[id number] [facility] Rx#: [id number] Other: Voiding Method Bedside Commode Toilet Toilet # Voids 4 1 # Bowel Movements 1 - Exam GENERAL DESCRIPTION: An elderly female lying in bed in no distress RESPIRATORY SYSTEM: Unlabored breathing , decreased breath sounds at bases HEART: S1 S2 regular rate and rhythm , ABDOMEN: Soft , no tenderness EXTREMITIES: No edema feet - Labs CBC & Chem 7: 12/28/24 03:10 12/28/24 03:10 Labs: Abnormal Lab Results - Last 24 Hours (Table) 12/27/24 12/27/24 12/27/24 Range/Units 11:05 12:38 14:43 WBC (4.50-10.00) X 10*3/uL RBC (4.10-5.20) X 10*6/uL Neutrophils # (1.80-7.70) X 10*3/uL APTT 20.3 L (22.0-30.0) sec Potassium 3.3 L (3.5-5.1) mmol/L Chloride (96-109) mmol/L Carbon Dioxide (21.6-31.8) mmol/L Creatinine (0.6-1.5) mg/dL BUN/Creatinine Ratio (12.00-20.00) Ratio Calcium (8.7-10.3) mg/dL Total Protein (6.2-8.2) g/dL Albumin (3.8-4.9) g/dL Fluid Appearance Turbid A (Clear) 12/27/24 12/28/24 12/28/24 Range/Units 20:22 03:10 03:10 WBC 13.79 H (4.50-10.00) X 10*3/uL RBC 4.02 L (4.10-5.20) X 10*6/uL Neutrophils # 11.35 H (1.80-7.70) X 10*3/uL APTT 152.0 H* (22.0-30.0) sec Potassium (3.5-5.1) mmol/L Chloride 113 H (96-109) mmol/L Carbon Dioxide 17.1 L (21.6-31.8) mmol/L Creatinine 0.5 L (0.6-1.5) mg/dL BUN/Creatinine Ratio 32.20 H (12.00-20.00) Ratio Calcium 8.4 L (8.7-10.3) mg/dL Total Protein 4.9 L (6.2-8.2) g/dL Albumin 3.2 L (3.8-4.9) g/dL Fluid Appearance (Clear) 12/28/24 12/28/24 Range/Units 03:10 08:28 WBC (4.50-10.00) X 10*3/uL RBC (4.10-5.20) X 10*6/uL Neutrophils # (1.80-7.70) X 10*3/uL APTT 91.0 H 49.7 H (22.0-30.0) sec Potassium (3.5-5.1) mmol/L Chloride (96-109) mmol/L Carbon Dioxide (21.6-31.8) mmol/L Creatinine (0.6-1.5) mg/dL BUN/Creatinine Ratio (12.00-20.00) Ratio Calcium (8.7-10.3) mg/dL Total Protein (6.2-8.2) g/dL Albumin (3.8-4.9) g/dL Fluid Appearance (Clear) Microbiology - Last 24 Hours (Table) 12/27/24 08:40 Urine Culture - Final Urine,Voided 12/26/24 13:25 Blood Culture - Preliminary Blood Assessment and Plan (1) Leukocytosis Current Visit: Yes Status: Acute Code(s): D72.829 - ELEVATED WHITE BLOOD CELL COUNT, UNSPECIFIED SNOMED Code(s): 859266195 (2) Psoas abscess, left Current Visit: Yes Status: Acute Code(s): K68.12 - PSOAS MUSCLE ABSCESS SNOMED Code(s): 978515474 Plan: 1patient presented the hospital with worsening pain to the left hip area and anterior thigh in this patient who recently did have a fall with evidence of a left psoas fluid collection reported as an abscess with a question of abscess versus possible hematoma as the symptoms started after a fall patient not run chuck any fever though did have elevated white count which may be increase in the case of hematoma as well however abscess not entirely excluded and will cover with antibiotic cover for both gram-positive as well as gram-negative 2patient is status post IR drainage of this fluid with concern for possible communicating with the hip joint orthopedics already on the case 3patient afebrile white count slightly up cultures are currently pending to continue with vancomycin and cefepime while waiting for the workup to be completed Dictation was produced using [employer] dictation software. please excuse any grammatical, word or spelling errors. Time with Patient: Less than 30
[2024-12-28 15:27] LABS: African American GFR (CKD) >90 (>60 ml/min/1.73 sqM); Non-African American GFR(CKD) >90 (>60 ml/min/1.73 sqM)
[2024-12-28] MEDS: VANCOMYCIN TROUGH DUE 1 EACH MISC MISCELLANE ONE (16:33)
--- NOTE | 2024-12-28 16:49 | NM ---
EXAMINATION TYPE: NM WBC whole body DATE OF EXAM: 12/28/2024 COMPARISON: NONE CLINICAL INDICATION: Female, 69 years old with history of possible left hip infection; TECHNIQUE: Following administration of 11.83 mCi Tc99m Ceretec. Images obtained 3 hours post inject ion. FINDINGS: Normal physiological tracer activity is noted in the liver and spleen and in the bone marrow of the a xial and appendicular skeleton. Suspicious uptake at the left hip is not identified. Photopenic defects are evident from bilateral hi p prostheses. There is some faint uptake within the left thigh which may correlate with the patient's recent absces s drainage IMPRESSION: 1. Mild uptake within the thigh may be related to the patient's abscess. 2. Suspicious uptake at the left hip prosthesis is not evident. [facility], , 12/28/2024 4:47 PM
[2024-12-29 06:16] LABS: African American GFR (CKD) >90 (>60 ml/min/1.73 sqM); Non-African American GFR(CKD) >90 (>60 ml/min/1.73 sqM)
[2024-12-29 06:35] LABS: African American GFR (CKD) >90 (>60 ml/min/1.73 sqM); Anion Gap 8 mmol/L; Blood Urea Nitrogen 14 mg/dL (7-17); Carbon Dioxide 17 mmol/L (22-30); Chloride 112 mmol/L (98-107); Glucose 84 mg/dL (74-99); Magnesium 1.8 mg/dL (1.6-2.3); Non-African American GFR(CKD) >90 (>60 ml/min/1.73 sqM); Potassium 3.9 mmol/L (3.5-5.1); Sodium 137 mmol/L (137-145)
[2024-12-29 08:07] LABS: Basophils # (A) 0.04 10*3/uL (0.00-0.10); Basophils % (A) 0.3 %; Eosinophils # (A) 0.18 10*3/uL (0.04-0.35); Eosinophils % (A) 1.4 %; HCT 37.1 % (37.2-46.3); HGB 12.6 g/dL (12.0-15.0); Lymphocytes # (A) 1.06 10*3/uL (0.90-5.00); Lymphocytes % (A) 8.2 %; MCH 32.4 pg (27.0-32.0); MCV 95.4 fL (80.0-97.0); Mean Platelet Volume 9.8 fL (9.5-12.2); Monocytes # (A) 0.56 10*3/uL (0.20-1.00); Monocytes % (A) 4.3 %; Neutrophils # (A) 11.09 10*3/uL (1.80-7.70); Neutrophils % (A) 85.3 %; Platelet Count 204 10*3/uL (140-440); RBC 3.89 10*6/uL (4.10-5.20); RDW 12.6 % (11.5-14.5)
--- NOTE | 2024-12-29 08:20 | P.PN ---
Subjective Progress Note Date: 12/28/24 This is a pleasant 69-year-old female who presented to the emergency department with recent fall approximately 2 weeks ago and has been having left-sided hip pain and underwent imaging noted to have a left psoas abscess. Patient reports she follows with Dr. Richard Rose in the outpatient setting with a past medical history of hyperlipidemia, hypertension, rheumatoid arthritis, previous orthopedic interventions of the knees and hips, morbid obesity, denies alcohol or cigarette use or any illicit drugs. Hip x-ray revealed no acute posttraumatic osseous abnormality of the left hip with no fractures noted. Venous Doppler was performed as there has been increased swelling and pain and was noted to be positive on the left from the IV to distal femoral vein and has been started on IV heparin. CT of the head performed showing an intrapelvic left psoas muscle abscess with extension into the inguinal region and anterior thigh. Labs reviewed on admission reveal a white count of 19.61, hemoglobin stable at 15.3, platelets 215, sodium 141 with a potassium of 2.9 with replacement and repeat is 4.4, BUN is 25 with a creatinine of 0.58. Urinalysis was also performed and urine was dark and cloudy with elevated white count, will add urine culture. Interventional radiology is consulted for possible abscess drainage with infectious disease following maintained on antibiotics and recommending culture of this abscess. Vascular surgery along with orthopedics have been consulted and patient is being admitted. 12/28/2024 Patient was seen and evaluated in follow-up with multiple consultations following including infectious disease, orthopedics, vascular surgery, and general surgery. Patient is maintained on antibiotics in the form of cefepime and vancomycin while awaiting cultures to finalize. Patient is status post IR drainage of the left psoas abscess with preliminary culture showing Staphylococcus simulans and infectious diseases following. Orthopedics has evaluated the patient recommending a WBC bone scan which is pending for today.. No immediate plans for surgical intervention per orthopedics but if requiring surgery given the extent of the abscess into the groin, recommending general surgery consult and if requiring any further surgery may need transfer to a tertiary care treatment center. Awaiting WBC scan. White count remains elevated at 13.79, sodium is 141 with a potassium of 4.2, BUN is 16.1 with a creatinine of 0.5. Patient is pretty bedbound at this point with extreme weakness. Review of systems: Constitutional: No reports of fatigue, fever, or chills Cardiovascular: No reports of chest pain or palpitations Respiratory: No reports of shortness of breath or cough GI: No reports of nausea, vomiting, or diarrhea : No reports of dysuria or retention Neurovascular: reports of generalized weakness All medications have been reviewed PHYSICAL EXAMINATION: GENERAL: The patient is alert and oriented x3, not in any acute distress. Well developed, morbidly obese HEENT: Pupils are round and equally reacting to light. EOMI. No scleral icterus. No conjunctival pallor. Normocephalic, atraumatic. No pharyngeal erythema. No thyromegaly. CARDIOVASCULAR: S1 and S2 muffled PULMONARY: Diminished breath sounds bilaterally otherwise chest is clear to auscultation, no wheezing or crackles. ABDOMEN: Soft, obese, nontender, nondistended, normoactive bowel sounds. No palpable organomegaly. MUSCULOSKELETAL: Left hip swelling noted with tenderness on palpation EXTREMITIES: No cyanosis, clubbing, or pedal edema. Left lower extremity edema NEUROLOGICAL: Gross neurological examination did not reveal any focal deficits. Diffusely weak SKIN: No rashes. Assessment: Left hip pain status post fall 2 weeks ago with left intrapelvic psoas abscess, status post drainage with cultures pending Left lower extremity swelling and pain with positive DVT noted, started on IV heparin Abnormal urinalysis with reported pain and discomfort with voiding, possible acute urinary tract infection, cultures pending Leukocytosis, possibly secondary to assessment #1, left psoas abscess History of hyperlipidemia Hypertension history History of rheumatoid arthritis Hypokalemia, being replaced and improved Morbid obesity with a BMI of 40.2 GI prophylaxis DVT prophylaxis on heparin Full code Plan: Patient was admitted with multiple consultations following including vascular surgery, infectious disease, orthopedics, interventional radiology. Patient is status post psoas abscess drainage with interventional radiology with cultures pending. Patient is continued on cefepime and vancomycin while awaiting cultures Patient is maintained on IV heparin per vascular surgery and will continue, monitor for any bleeding Continue to elevate left lower extremity while at rest. Continue bedrest for now until cleared by consultations Patient is continued on antibiotics per infectious disease and will await cultures determine appropriate antibiotics on discharge Per orthopedics no plans for immediate surgical intervention although given the extent of the abscess they do not feel it is a periprosthetic infection on the left hip arthroplasty previously and if requiring surgical intervention would recommend a tertiary treatment center. General surgery was consulted for evaluation of possible surgical intervention of this abscess. WBC scan ordered for today and pending. Case management consulted to evaluate and verify coverage if patient is requiring IV antibiotics outpatient or if patient will require ECF. Follow-up on repeat labs and replace electrolytes per protocol Home medications reviewed and resumed as appropriate The impression and plan of care has been dictated by Naye Meng, Nurse Practitioner as directed. Dr. Abby MD I have performed a history and examination and MDM of this patient, discussed the same with the dictator, and agree with the dictator's assessment and plan as written ,documented as a scribe. Based on total visit time, I have performed more than 50% of the visit. Objective - Vital Signs Vital signs: Vital Signs Temp 97.9 F 12/29/24 07:00 Pulse 79 12/29/24 07:00 Resp 18 12/29/24 07:00 BP 110/68 12/29/24 07:00 Pulse Ox 95 12/29/24 07:00 FiO2 Intake & Output 12/28/24 12/29/24 12/29/24 18:59 06:59 18:59 Intake Total 1973.233 240 Balance 1973.233 240 Intake: Intake, IV Titration 353.233 Amount Heparin Sod,Pork in 0.45% 353.233 NaCl 25,000 unit In 0.45 % NaCl 1 250ml.bag @ 18 UNITS/KG/HR 17.962 mls/hr IV .[id number] [facility] Rx#: [id number] Oral 1620 240 Other: Voiding Method Toilet Bedside Commode # Voids 5 2 - Labs CBC & Chem 7: 12/29/24 06:38 12/29/24 04:48 Labs: Abnormal Lab Results - Last 24 Hours (Table) 12/28/24 12/28/24 12/28/24 Range/Units 03:10 03:10 08:28 WBC 13.79 H (4.50-10.00) X 10*3/uL RBC 4.02 L (4.10-5.20) X 10*6/uL Hct (37.2-46.3) % MCH (27.0-32.0) pg Immature Gran # (0.00-0.04) 10*3/uL Neutrophils # 11.35 H (1.80-7.70) X 10*3/uL APTT 49.7 H (22.0-30.0) sec Chloride 113 H (96-109) mmol/L Carbon Dioxide 17.1 L (21.6-31.8) mmol/L Creatinine 0.5 L (0.6-1.5) mg/dL BUN/Creatinine Ratio 32.20 H (12.00-20.00) Ratio Calcium 8.4 L (8.7-10.3) mg/dL Total Protein 4.9 L (6.2-8.2) g/dL Albumin 3.2 L (3.8-4.9) g/dL 12/28/24 12/29/24 12/29/24 Range/Units 14:24 04:48 04:48 WBC (4.50-10.00) X 10*3/uL RBC (4.10-5.20) X 10*6/uL Hct (37.2-46.3) % MCH (27.0-32.0) pg Immature Gran # (0.00-0.04) 10*3/uL Neutrophils # (1.80-7.70) X 10*3/uL APTT 20.4 L (22.0-30.0) sec Chloride (96-109) mmol/L Carbon Dioxide (21.6-31.8) mmol/L Creatinine 0.50 L 0.50 L (0.6-1.5) mg/dL BUN/Creatinine Ratio (12.00-20.00) Ratio Calcium (8.7-10.3) mg/dL Total Protein (6.2-8.2) g/dL Albumin (3.8-4.9) g/dL 12/29/24 12/29/24 Range/Units 04:48 06:38 WBC 13.00 H (4.50-10.00) X 10*3/uL RBC 3.89 L (4.10-5.20) X 10*6/uL Hct 37.1 L (37.2-46.3) % MCH 32.4 H (27.0-32.0) pg Immature Gran # 0.07 H (0.00-0.04) 10*3/uL Neutrophils # 11.09 H (1.80-7.70) X 10*3/uL APTT (22.0-30.0) sec Chloride 112 H (96-109) mmol/L Carbon Dioxide 17 L (21.6-31.8) mmol/L Creatinine 0.50 L (0.6-1.5) mg/dL BUN/Creatinine Ratio (12.00-20.00) Ratio Calcium (8.7-10.3) mg/dL Total Protein (6.2-8.2) g/dL Albumin (3.8-4.9) g/dL Microbiology - Last 24 Hours (Table) 12/26/24 13:25 Blood Culture - Preliminary Blood 12/27/24 11:05 Gram Stain - Preliminary Aspirate Body Fluid Culture - Preliminary Staphylococcus simulans 12/27/24 08:40 Urine Culture - Final Urine,Voided
--- NOTE | 2024-12-29 11:51 | P.GSCN ---
History of Present Illness Consult date: 12/29/24 History of present illness: 69-year-old female presented to the emergency department due to increased swelling of her left leg. She fell about a week and a half ago and fell on the left side. She does have history of left hip replacement. CT of the left hip was performed with finding of intrapelvic left psoas muscle abscess with extension into the inguinal region and anterior thigh. White blood cell scan was performed as well without any obvious finding of suspicious involvement of the joint. Based on finding of the abscess, infectious disease and interventio nal radiology have also been consulted. Patient did undergo aspiration by interventional radiology with no placement of drainage catheter. Patient has been on IV antibiotics. Review of Systems All systems: negative Past Medical History Past Medical History: Hyperlipidemia, Hypertension, Rheumatoid Arthritis (RA) Additional Past Medical History / Comment(s): KIDNEY STONE,STEROID INJECTION NOVEMBER 2015,SINUS PROBLEMS History of Any Multi-Drug Resistant Organisms: None Reported Past Surgical History: Joint Replacement, Orthopedic Surgery Additional Past Surgical History / Comment(s): RT KNEE SURG-PINS & WIRES PLACED -1999,LT ELVIRA 2013,Plates in R ankle in 2010, 10/2014 LT ELVIRA, RT TKA,. COLONOSCOPY, KIDNEY STONE REMOVED, L total knee 11/08 Past Anesthesia/Blood Transfusion Reactions: No Reported Reaction Past Psychological History: No Psychological Hx Reported Smoking Status: Never smoker Past Alcohol Use History: None Reported Past Drug Use History: None Reported - Past Family History Father Family Medical History: Coronary Artery Disease (CAD), Eye Disorder Additional Family Medical History / Comment(s): Macular degeneration. Brother(s) Family Medical History: No Reported History Additional Family Medical History / Comment(s): Has 1 brother that from drug use. One brother is alive with no major medical problems. Patient does not have any sisters. Patient has twin daughters with no major medical problems. Mother Family Medical History: Cancer Additional Family Medical History / Comment(s): Mother at age 74 from thyroid cancer which had metastasized to her lungs. Medications and Allergies Home Medications Medication Instructions Recorded Confirmed Type Actemra Infusion 8mg/Kg 1 dose IV Q28D 12/26/24 12/26/24 History Ibuprofen [Motrin] 600 mg PO Q6H PRN 12/26/24 12/26/24 History Losartan-Hctz 50-12.5 mg [Hyzaar 0.5 tab PO DAILY 12/26/24 12/26/24 History 50-12.5] predniSONE 2.5 mg PO DAILY PRN 12/26/24 12/26/24 History Allergies Allergy/AdvReac Type Severity Reaction Status Date / Time adhesive AdvReac Mild blisters Verified 12/26/24 11:57 skin Surgical - Exam Osteopathic Statement: *. No significant issues noted on an osteopathic structural exam other than those noted in the History and Physical/Consult. Vital Signs Temp Pulse Resp BP Pulse Ox 97.8 F 112 H 20 163/79 98 12/26/24 09:52 12/26/24 09:52 12/26/24 09:52 12/26/24 09:52 12/26/24 09:52 - General well nourished, no distress - Eyes normal ocular movement - Neck trachea midline - Respiratory normal respiratory effort - Abdomen Abdomen: soft, non tender - Musculoskeletal Some edema to the left lower extremity - Psychiatric oriented to time, oriented to person, oriented to place Results - Labs 12/29/24 06:38 12/29/24 04:48 Abnormal Lab Results - Last 24 Hours (Table) 12/28/24 12/29/24 12/29/24 Range/Units 14:24 04:48 04:48 WBC (4.50-10.00) 10*3/uL RBC (4.10-5.20) 10*6/uL Hct (37.2-46.3) % MCH (27.0-32.0) pg Immature Gran # (0.00-0.04) 10*3/uL Neutrophils # (1.80-7.70) 10*3/uL APTT 20.4 L (22.0-30.0) sec Chloride (98-107) mmol/L Carbon Dioxide (22-30) mmol/L Creatinine 0.50 L 0.50 L (0.52-1.04) mg/dL 12/29/24 12/29/24 Range/Units 04:48 06:38 WBC 13.00 H (4.50-10.00) 10*3/uL RBC 3.89 L (4.10-5.20) 10*6/uL Hct 37.1 L (37.2-46.3) % MCH 32.4 H (27.0-32.0) pg Immature Gran # 0.07 H (0.00-0.04) 10*3/uL Neutrophils # 11.09 H (1.80-7.70) 10*3/uL APTT (22.0-30.0) sec Chloride 112 H (98-107) mmol/L Carbon Dioxide 17 L (22-30) mmol/L Creatinine 0.50 L (0.52-1.04) mg/dL Microbiology - Last 24 Hours (Table) 12/26/24 13:25 Blood Culture - Preliminary Blood 12/27/24 11:05 Gram Stain - Preliminary Aspirate Body Fluid Culture - Preliminary Staphylococcus simulans 12/27/24 08:40 Urine Culture - Final Urine,Voided Diabetes panel 12/28/24 12/29/24 12/29/24 Range/Units 14:24 04:48 04:48 Sodium 137 (137-145) mmol/L Potassium 3.9 (3.5-5.1) mmol/L Chloride 112 H (98-107) mmol/L Carbon Dioxide 17 L (22-30) mmol/L BUN 14 (7-17) mg/dL Creatinine 0.50 L 0.50 L 0.50 L (0.52-1.04) mg/dL Glucose 84 (74-99) mg/dL Calcium 9.0 (8.4-10.2) mg/dL Calcium panel 12/29/24 Range/Units 04:48 Calcium 9.0 (8.4-10.2) mg/dL Pituitary panel 12/28/24 12/29/24 12/29/24 Range/Units 14:24 04:48 04:48 Sodium 137 (137-145) mmol/L Potassium 3.9 (3.5-5.1) mmol/L Chloride 112 H (98-107) mmol/L Carbon Dioxide 17 L (22-30) mmol/L BUN 14 (7-17) mg/dL Creatinine 0.50 L 0.50 L 0.50 L (0.52-1.04) mg/dL Glucose 84 (74-99) mg/dL Calcium 9.0 (8.4-10.2) mg/dL Adrenal panel 12/28/24 12/29/24 12/29/24 Range/Units 14:24 04:48 04:48 Sodium 137 (137-145) mmol/L Potassium 3.9 (3.5-5.1) mmol/L Chloride 112 H (98-107) mmol/L Carbon Dioxide 17 L (22-30) mmol/L BUN 14 (7-17) mg/dL Creatinine 0.50 L 0.50 L 0.50 L (0.52-1.04) mg/dL Glucose 84 (74-99) mg/dL Calcium 9.0 (8.4-10.2) mg/dL Assessment and Plan Plan: 69-year-old female with left psoas abscess. Appears that leukocytosis has been improving since being on antibiotics. I did evaluate CT and would recommend IR intervention with pigtail catheter placement into this abscess cavity. Surgical intervention would be quite invasive based on location of the abscess. If interventional radiology unable to place catheter at this institution, would recommend transfer to higher level of care for evaluation.
--- NOTE | 2024-12-29 12:01 | P.PN ---
Subjective Progress Note Date: 12/29/24 Principal diagnosis: Left psoas abscess, left lower extremity DVT, history of left total hip arthroplasty Patient was evaluated today at bedside, her daughter was also present, she was resting in her hospital bed. Patient is doing okay, she was able to get up and move around the room a little bit. She states that the leg is feeling little bit better. She was evaluated by general surgery who is recommending interventional radiology to consider placement of catheter for the left psoas abscess. White blood cell scan was also done yesterday which suggest no acute involvement of her left hip prosthesis. She denies any headaches, lightheadedness, chest pain or shortness of breath. Objective - Vital Signs Vital signs: Vital Signs Temp 97.9 F 12/29/24 07:00 Pulse 79 12/29/24 07:00 Resp 18 12/29/24 07:00 BP 110/68 12/29/24 07:00 Pulse Ox 95 12/29/24 07:00 FiO2 Intake & Output 12/28/24 12/29/24 12/29/24 18:59 06:59 18:59 Intake Total 1973.233 240 Balance 1973.233 240 Intake: Intake, IV Titration 353.233 Amount Heparin Sod,Pork in 0.45% 353.233 NaCl 25,000 unit In 0.45 % NaCl 1 250ml.bag @ 18 UNITS/KG/HR 17.962 mls/hr IV .[id number] [facility] Rx#: [id number] Oral 1620 240 Other: Voiding Method Toilet Bedside Commode # Voids 5 2 - Exam Left lower extremity: Generalized soft tissue swelling present throughout most of the extremity worse below the knee, there is some generalized erythema in the lower leg with pitting edema. She has a well-healed incision over the anterior aspect of the knee with generalized swelling. Well-healed incision over the lateral aspect of the left hip, there is no openings in the skin, there is no erythema, there is no areas of fluctuance appreciated Range of motion was difficult for the patient mainly with extension and flexion of the hip along with extension of the knee. She was able to flex the knee. Plantarflexion, dorsiflexion, EHL, FHL are intact. Both logroll maneuver of the extremity along with deep flexion along with internal and external rotation of the hip reproduces no groin pain. Patient has generalized tenderness with palpation to the areas of swelling in the lower leg, she does demonstrate some discomfort in the thigh with palpation. Calf is swollen, no significant tenderness with palpation on exam Sensory exam to light touch throughout that extremity is intact, skin is warm to touch - Labs CBC & Chem 7: 12/29/24 06:38 12/29/24 04:48 Labs: Abnormal Lab Results - Last 24 Hours (Table) 12/28/24 12/29/24 12/29/24 Range/Units 14:24 04:48 04:48 WBC (4.50-10.00) 10*3/uL RBC (4.10-5.20) 10*6/uL Hct (37.2-46.3) % MCH (27.0-32.0) pg Immature Gran # (0.00-0.04) 10*3/uL Neutrophils # (1.80-7.70) 10*3/uL APTT 20.4 L (22.0-30.0) sec Chloride (98-107) mmol/L Carbon Dioxide (22-30) mmol/L Creatinine 0.50 L 0.50 L (0.52-1.04) mg/dL 12/29/24 12/29/24 Range/Units 04:48 06:38 WBC 13.00 H (4.50-10.00) 10*3/uL RBC 3.89 L (4.10-5.20) 10*6/uL Hct 37.1 L (37.2-46.3) % MCH 32.4 H (27.0-32.0) pg Immature Gran # 0.07 H (0.00-0.04) 10*3/uL Neutrophils # 11.09 H (1.80-7.70) 10*3/uL APTT (22.0-30.0) sec Chloride 112 H (98-107) mmol/L Carbon Dioxide 17 L (22-30) mmol/L Creatinine 0.50 L (0.52-1.04) mg/dL Microbiology - Last 24 Hours (Table) 12/26/24 13:25 Blood Culture - Preliminary Blood 12/27/24 11:05 Gram Stain - Preliminary Aspirate Body Fluid Culture - Preliminary Staphylococcus simulans 12/27/24 08:40 Urine Culture - Final Urine,Voided Assessment and Plan Assessment: Left lower extremity pain Left lower extremity swelling/edema Left lower extremity DVT Left psoas muscle abscess Concerns for left hip periprosthetic infection Multiple medical comorbidities Plan: Pain control, oral and IV medication as needed DVT prophylaxis per primary medical service Other medical specialty recommendations appreciated Very low concern at this time for infection involving the left hip hardware Await interventional radiology recommendations with regards to possible drain placement for left psoas abscess Further recommendations to follow Time with Patient: Less than 30
--- NOTE | 2024-12-29 13:19 | P.PN ---
Subjective Progress Note Date: 12/29/24 Principal diagnosis: LLE DVT Patient seen and examined at bedside. Doing well. States left leg is much improved and swelling has gone down since elevating and compression. She denies any significant pain in her lower extremity. Objective - Vital Signs Vital signs: Vital Signs Temp 97.9 F 12/29/24 07:00 Pulse 79 12/29/24 07:00 Resp 18 12/29/24 07:00 BP 110/68 12/29/24 07:00 Pulse Ox 95 12/29/24 07:00 FiO2 Intake & Output 12/28/24 12/29/24 12/29/24 18:59 06:59 18:59 Intake Total 1973.233 337.294 Balance 1973.233 337.294 Intake: Intake, IV Titration 353.233 97.294 Amount Heparin Sod,Pork in 0.45% 353.233 97.294 NaCl 25,000 unit In 0.45 % NaCl 1 250ml.bag @ 18 UNITS/KG/HR 17.962 mls/hr IV .[id number] [facility] Rx#: [id number] Oral 1620 240 Other: Voiding Method Toilet Bedside Commode # Voids 5 2 - Exam No acute distress, alert and oriented x 3 morbid obesity 2+ edema left lower extremity, palpable DP pulse No significant edema of the right lower extremity. Palpable DP pulse - Labs CBC & Chem 7: 12/29/24 06:38 12/29/24 04:48 Labs: Abnormal Lab Results - Last 24 Hours (Table) 12/28/24 12/29/24 12/29/24 Range/Units 14:24 04:48 04:48 WBC (4.50-10.00) 10*3/uL RBC (4.10-5.20) 10*6/uL Hct (37.2-46.3) % MCH (27.0-32.0) pg Immature Gran # (0.00-0.04) 10*3/uL Neutrophils # (1.80-7.70) 10*3/uL APTT 20.4 L (22.0-30.0) sec Chloride (98-107) mmol/L Carbon Dioxide (22-30) mmol/L Creatinine 0.50 L 0.50 L (0.52-1.04) mg/dL 12/29/24 12/29/24 Range/Units 04:48 06:38 WBC 13.00 H (4.50-10.00) 10*3/uL RBC 3.89 L (4.10-5.20) 10*6/uL Hct 37.1 L (37.2-46.3) % MCH 32.4 H (27.0-32.0) pg Immature Gran # 0.07 H (0.00-0.04) 10*3/uL Neutrophils # 11.09 H (1.80-7.70) 10*3/uL APTT (22.0-30.0) sec Chloride 112 H (98-107) mmol/L Carbon Dioxide 17 L (22-30) mmol/L Creatinine 0.50 L (0.52-1.04) mg/dL Microbiology - Last 24 Hours (Table) 12/26/24 13:25 Blood Culture - Preliminary Blood 12/27/24 11:05 Gram Stain - Preliminary Aspirate Body Fluid Culture - Preliminary Staphylococcus simulans 12/27/24 08:40 Urine Culture - Final Urine,Voided Assessment and Plan Assessment: 1. Left lower extremity DVT likely provoked from psoas muscle abscess com pression 2. Intrapelvic left psoas muscle abscess with extension into the inguinal region and anterior thigh per left hip CT report 3. Left lower extremity pain 4. Hypokalemia 5. Recent fall 6. History of previous hip replacement 7. Obesity Plan: 1. Continue with heparin drip for now 2. Elevate left lower extremity 3. Continue thigh-high DIANE hose to left lower extremity 4. Continue with recommendations from orthopedics
--- NOTE | 2024-12-29 18:51 | P.PN ---
Subjective Progress Note Date: 12/29/24 Principal diagnosis: Reason for follow-up is left iliopsoas abscess/septic hip Patient is a 69-year-old female with a past medical history significant for hypertension hyperlipidemia RA in this patient who did have bilateral knee and hip replacement and did have a fall about a week ago hitting her left side of the body patient did have a CT of the left hip suggestive of left iliopsoas abscess prompting this consultation. On today's evaluation that is 12/30/2023, patient did have a temperature of 98 F this morning and denies having any chills, patient is on room air and breathing comfortably no chest pain or cough, the patient did not have any nausea vomiting abdominal pain or any diarrhea, pain to the left hip is currently controlled. Patient did have a white count of 13,000 creatinine 0.50 culture: Growing Staphylococcus simulans blood cultures are pending Objective - Vital Signs Vital signs: Vital Signs Temp 97.9 F 12/29/24 07:00 Pulse 79 12/29/24 07:00 Resp 18 12/29/24 07:00 BP 110/68 12/29/24 07:00 Pulse Ox 95 12/29/24 07:00 FiO2 Intake & Output 12/28/24 12/29/24 12/29/24 18:59 06:59 18:59 Intake Total 1973.233 337.294 Balance 1973.233 337.294 Intake: Intake, IV Titration 353.233 97.294 Amount Heparin Sod,Pork in 0.45% 353.233 97.294 NaCl 25,000 unit In 0.45 % NaCl 1 250ml.bag @ 18 UNITS/KG/HR 17.962 mls/hr IV .[id number] [facility] Rx#: [id number] Oral 1620 240 Other: Voiding Method Toilet Bedside Commode # Voids 5 2 - Exam GENERAL DESCRIPTION: An elderly female lying in bed in no distress RESPIRATORY SYSTEM: Unlabored breathing , decreased breath sounds at bases HEART: S1 S2 regular rate and rhythm , ABDOMEN: Soft , no tenderness EXTREMITIES: No edema feet - Labs CBC & Chem 7: 12/29/24 06:38 12/29/24 04:48 Labs: Abnormal Lab Results - Last 24 Hours (Table) 12/28/24 12/29/24 12/29/24 Range/Units 14:24 04:48 04:48 WBC (4.50-10.00) 10*3/uL RBC (4.10-5.20) 10*6/uL Hct (37.2-46.3) % MCH (27.0-32.0) pg Immature Gran # (0.00-0.04) 10*3/uL Neutrophils # (1.80-7.70) 10*3/uL APTT 20.4 L (22.0-30.0) sec Chloride (98-107) mmol/L Carbon Dioxide (22-30) mmol/L Creatinine 0.50 L 0.50 L (0.52-1.04) mg/dL 12/29/24 12/29/24 Range/Units 04:48 06:38 WBC 13.00 H (4.50-10.00) 10*3/uL RBC 3.89 L (4.10-5.20) 10*6/uL Hct 37.1 L (37.2-46.3) % MCH 32.4 H (27.0-32.0) pg Immature Gran # 0.07 H (0.00-0.04) 10*3/uL Neutrophils # 11.09 H (1.80-7.70) 10*3/uL APTT (22.0-30.0) sec Chloride 112 H (98-107) mmol/L Carbon Dioxide 17 L (22-30) mmol/L Creatinine 0.50 L (0.52-1.04) mg/dL Microbiology - Last 24 Hours (Table) 12/26/24 13:25 Blood Culture - Preliminary Blood 12/27/24 11:05 Gram Stain - Preliminary Aspirate Body Fluid Culture - Preliminary Staphylococcus simulans 12/27/24 08:40 Urine Culture - Final Urine,Voided Assessment and Plan (1) Leukocytosis Current Visit: Yes Status: Acute Code(s): D72.829 - ELEVATED WHITE BLOOD CELL COUNT, UNSPECIFIED SNOMED Code(s): 535539115 (2) Psoas abscess, left Current Visit: Yes Status: Acute Code(s): K68.12 - PSOAS MUSCLE ABSCESS SNOMED Code(s): 059464507 Plan: 1patient presented the hospital with worsening pain to the left hip area and anterior thigh in this patient who recently did have a fall with evidence of a left psoas fluid collection reported as an abscess with a question of abscess versus possible hematoma as the symptoms started after a fall patient not running any fever though did have elevated white count which may be increase in the case of hematoma as well however abscess not entirely excluded and will cover with antibiotic cover for both gram-positive as well as gram-negative 2patient is status post IR drainage of this fluid with concern for possible communicating with the hip joint orthopedics already on the case, WBC scan did not mention any uptake in the left hip 3patient local culture currently growing Staphylococcus simulans with sensitivities pending patient to continue with the vancomycin we will discontinue cefepime as no gram-negative's growing Dictation was produced using [employer] dictation software. please excuse any grammatical, word or spelling errors. Time with Patient: Less than 30
[2024-12-30 07:22] LABS: Basophils # (A) 0.03 10*3/uL (0.00-0.10); Basophils % (A) 0.2 %; Eosinophils # (A) 0.29 10*3/uL (0.04-0.35); HCT 36.1 % (37.2-46.3); Lymphocytes # (A) 1.59 10*3/uL (0.90-5.00); MCH 31.9 pg (27.0-32.0); MCHC 33.2 g/dL (32.0-37.0); Mean Platelet Volume 9.8 fL (9.5-12.2); Monocytes # (A) 0.58 10*3/uL (0.20-1.00); Neutrophils # (A) 11.85 10*3/uL (1.80-7.70); Neutrophils % (A) 82.4 %; Platelet Count 217 10*3/uL (140-440); RBC 3.76 10*6/uL (4.10-5.20); RDW 12.7 % (11.5-14.5)
--- NOTE | 2024-12-30 07:35 | P.PN ---
Subjective Progress Note Date: 12/29/24 This is a pleasant 69-year-old female who presented to the emergency department with recent fall approximately 2 weeks ago and has been having left-sided hip pain and underwent imaging noted to have a left psoas abscess. Patient reports she follows with Dr. Richard Rose in the outpatient setting with a past medical history of hyperlipidemia, hypertension, rheumatoid arthritis, previous orthopedic interventions of the knees and hips, morbid obesity, denies alcohol or cigarette use or any illicit drugs. Hip x-ray revealed no acute posttraumatic osseous abnormality of the left hip with no fractures noted. Venous Doppler was performed as there has been increased swelling and pain and was noted to be positive on the left from the IV to distal femoral vein and has been started on IV heparin. CT of the head performed showing an intrapelvic left psoas muscle abscess with extension into the inguinal region and anterior thigh. Labs reviewed on admission reveal a white count of 19.61, hemoglobin stable at 15.3, platelets 215, sodium 141 with a potassium of 2.9 with replacement and repeat is 4.4, BUN is 25 with a creatinine of 0.58. Urinalysis was also performed and urine was dark and cloudy with elevated white count, will add urine culture. Interventional radiology is consulted for possible abscess drainage with infectious disease following maintained on antibiotics and recommending culture of this abscess. Vascular surgery along with orthopedics have been consulted and patient is being admitted. 12/28/2024 Patient was seen and evaluated in follow-up with multiple consultations following including infectious disease, orthopedics, vascular surgery, and general surgery. Patient is maintained on antibiotics in the form of cefepime and vancomycin while awaiting cultures to finalize. Patient is status post IR drainage of the left psoas abscess with preliminary culture showing Staphylococcus simulans and infectious diseases following. Orthopedics has evaluated the patient recommending a WBC bone scan which is pending for today.. No immediate plans for surgical intervention per orthopedics but if requiring surgery given the extent of the abscess into the groin, recommending general surgery consult and if requiring any further surgery may need transfer to a tertiary care treatment center. Awaiting WBC scan. White count remains elevated at 13.79, sodium is 141 with a potassium of 4.2, BUN is 16.1 with a creatinine of 0.5. Patient is pretty bedbound at this point with extreme weakness. 12/29/2024 Patient is seen in follow-up today with multiple consultations following maintained on IV antibiotics in the form of vancomycin and cefepime has been discontinued. White count remains elevated at 13 and hemoglobin is stable at 12.6, sodium 137 with a potassium of 3.9, BUN is 14 with a creatinine 0.5, magnesium is 1.8. Patient underwent WBC scan which revealed a mild uptake within the thigh on the left that may be related to the patient's abscess with no suspicions uptake surrounding the left hip prosthesis. Orthopedics is following with no plans of surgical intervention at this time. Vascular surgery following as well for the left lower extremity DVT and will continue with current supportive care with elevating the left lower extremity and compression. Patient is continued on IV heparin for now and will continue with compression stockings of the left lower extremity. General surgery consulted regarding the left psoas abscess that is extending into the inguinal region and anterior thigh and recommending pigtail catheter placement into the abscess cavity and also reports that surgical intervention would be quite invasive based on the location of the abscess and if unable to perform the pigtail catheter by interventional radiology, then would recommend transfer to higher level of care for an evaluation. Will await IR evaluation for possible pigtail catheter placement. Continue current regimen and continue on IV heparin for now. Follow-up on repeat labs and replace electrolytes per protocol. Patient has remained afebrile Review of systems: Constitutional: No reports of fatigue, fever, or chills Cardiovascular: No reports of chest pain or palpitations Respiratory: No reports of shortness of breath or cough GI: No reports of nausea, vomiting, or diarrhea : No reports of dysuria or retention Neurovascular: reports of generalized weakness All medications have been reviewed PHYSICAL EXAMINATION: GENERAL: The patient is alert and oriented x3, not in any acute distress. Well developed, morbidly obese HEENT: Pupils are round and equally reacting to light. EOMI. No scleral icterus. No conjunctival pallor. Normocephalic, atraumatic. No pharyngeal erythema. No thyromegaly. CARDIOVASCULAR: S1 and S2 muffled PULMONARY: Diminished breath sounds bilaterally otherwise chest is clear to auscultation, no wheezing or crackles. ABDOMEN: Soft, obese, nontender, nondistended, normoactive bowel sounds. No palpable organomegaly. MUSCULOSKELETAL: Left hip swelling noted with tenderness on palpation, left lower extremity swelling is improving and elevated with compression stockings EXTREMITIES: No cyanosis, clubbing, or pedal edema. Left lower extremity edema, improving NEUROLOGICAL: Gross neurological examination did not reveal any focal deficits. Diffusely weak SKIN: No rashes. Assessment: Left hip pain status post fall 2 weeks ago with left intrapelvic psoas abscess, status post drainage with cultures pending Left lower extremity swelling and pain with positive DVT noted, continued on IV heparin Abnormal urinalysis with reported pain and discomfort with voiding, possible acute urinary tract infection, cultures pending Leukocytosis, possibly secondary to assessment #1, left psoas abscess History of hyperlipidemia Hypertension history History of rheumatoid arthritis Hypokalemia, being replaced and improved Morbid obesity with a BMI of 40.2 GI prophylaxis DVT prophylaxis on heparin Full code Plan: Patient was admitted with multiple consultations following including vascular surgery, infectious disease, orthopedics, interventional radiology. Patient is status post psoas abscess drainage with interventional radiology with cultures pending. Patient is continued on vancomycin and cefepime has been discontinued. Awaiting cultures Patient is maintained on IV heparin per vascular surgery and will continue, monitor for any bleeding Continue to elevate left lower extremity while at rest. Continue bedrest for now until cleared by consultations. Continue with Jim wraps and/or compression stockings to lower extremities Per orthopedics no plans for immediate surgical intervention although given the extent of the abscess they do not feel it is a periprosthetic infection on the left hip arthroplasty previously and if requiring surgical intervention would recommend a tertiary treatment center. General surgery was consulted for evaluation of possible surgical intervention of this abscess. WBC scan not suspicious of any uptake at the previous periprosthetic area on the left hip. General surgery evaluated recommending reevaluation from interventional radiology for possible pigtail catheter to that abscess location given the extent of it if interventional radiology is unable to place the catheter, would recommend transferring to a tertiary treatment center for evaluation Case management consulted to evaluate and verify coverage if patient is requiring IV antibiotics outpatient or if patient will require ECF. Follow-up on repeat labs and replace electrolytes per protocol The impression and plan of care has been dictated as a scribe by Naye Meng, Nurse Practitioner as directed. Dr. Abby MD I have performed a history and examination and MDM of this patient, discussed the same with the dictator, and agree with the dictator's assessment and plan as written ,documented as a scribe. Based on total visit time, I have performed more than 50% of the visit. Objective - Vital Signs Vital signs: Vital Signs Temp 97.9 F 12/29/24 07:00 Pulse 79 12/29/24 07:00 Resp 18 12/29/24 07:00 BP 110/68 12/29/24 07:00 Pulse Ox 95 12/29/24 07:00 FiO2 Intake & Output 12/28/24 12/29/24 12/29/24 18:59 06:59 18:59 Intake Total 1973.233 240 Balance 1972.233 240 Intake: Intake, IV Titration 353.233 Amount Heparin Sod,Pork in 0.45% 353.233 NaCl 25,000 unit In 0.45 % NaCl 1 250ml.bag @ 18 UNITS/KG/HR 17.962 mls/hr IV .[id number] [facility] Rx#: [id number] Oral 1620 240 Other: Voiding Method Toilet Bedside Commode # Voids 5 2 - Labs CBC & Chem 7: 12/30/24 06:44 12/29/24 04:48 Labs: Abnormal Lab Results - Last 24 Hours (Table) 12/28/24 12/28/24 12/28/24 Range/Units 03:10 03:10 08:28 WBC 13.79 H (4.50-10.00) X 10*3/uL RBC 4.02 L (4.10-5.20) X 10*6/uL Hct (37.2-46.3) % MCH (27.0-32.0) pg Immature Gran # (0.00-0.04) 10*3/uL Neutrophils # 11.35 H (1.80-7.70) X 10*3/uL APTT 49.7 H (22.0-30.0) sec Chloride 113 H (96-109) mmol/L Carbon Dioxide 17.1 L (21.6-31.8) mmol/L Creatinine 0.5 L (0.6-1.5) mg/dL BUN/Creatinine Ratio 32.20 H (12.00-20.00) Ratio Calcium 8.4 L (8.7-10.3) mg/dL Total Protein 4.9 L (6.2-8.2) g/dL Albumin 3.2 L (3.8-4.9) g/dL 12/28/24 12/29/24 12/29/24 Range/Units 14:24 04:48 04:48 WBC (4.50-10.00) X 10*3/uL RBC (4.10-5.20) X 10*6/uL Hct (37.2-46.3) % MCH (27.0-32.0) pg Immature Gran # (0.00-0.04) 10*3/uL Neutrophils # (1.80-7.70) X 10*3/uL APTT 20.4 L (22.0-30.0) sec Chloride (96-109) mmol/L Carbon Dioxide (21.6-31.8) mmol/L Creatinine 0.50 L 0.50 L (0.6-1.5) mg/dL BUN/Creatinine Ratio (12.00-20.00) Ratio Calcium (8.7-10.3) mg/dL Total Protein (6.2-8.2) g/dL Albumin (3.8-4.9) g/dL 12/29/24 12/29/24 Range/Units 04:48 06:38 WBC 13.00 H (4.50-10.00) X 10*3/uL RBC 3.89 L (4.10-5.20) X 10*6/uL Hct 37.1 L (37.2-46.3) % MCH 32.4 H (27.0-32.0) pg Immature Gran # 0.07 H (0.00-0.04) 10*3/uL Neutrophils # 11.09 H (1.80-7.70) X 10*3/uL APTT (22.0-30.0) sec Chloride 112 H (96-109) mmol/L Carbon Dioxide 17 L (21.6-31.8) mmol/L Creatinine 0.50 L (0.6-1.5) mg/dL BUN/Creatinine Ratio (12.00-20.00) Ratio Calcium (8.7-10.3) mg/dL Total Protein (6.2-8.2) g/dL Albumin (3.8-4.9) g/dL Microbiology - Last 24 Hours (Table) 12/26/24 13:25 Blood Culture - Preliminary Blood 12/27/24 11:05 Gram Stain - Preliminary Aspirate Body Fluid Culture - Preliminary Staphylococcus simulans 12/27/24 08:40 Urine Culture - Final Urine,Voided
[2024-12-30 07:40] LABS: African American GFR (CKD) >90 (>60 ml/min/1.73 sqM); Non-African American GFR(CKD) >90 (>60 ml/min/1.73 sqM)
--- NOTE | 2024-12-30 10:35 | P.PN ---
Subjective Progress Note Date: 12/30/24 Patient seen and examined at bedside. States she is feeling a little better today. Objective - Vital Signs Vital signs: Vital Signs Temp 98.0 F 12/30/24 07:01 Pulse 98 12/30/24 07:01 Resp 18 12/30/24 07:01 BP 131/78 12/30/24 07:01 Pulse Ox 96 12/30/24 07:01 FiO2 Intake & Output 12/29/24 12/30/24 12/30/24 18:59 06:59 18:59 Intake Total 1092.619 214.675 180 Balance 1092.619 214.675 180 Intake: Intake, IV Titration 132.619 214.675 Amount Heparin Sod,Pork in 0.45% 132.619 214.675 NaCl 25,000 unit In 0.45 % NaCl 1 250ml.bag @ 18 UNITS/KG/HR 17.962 mls/hr IV .[id number] [facility] Rx#: [id number] Oral 960 180 Other: Voiding Method Bedside Commode # Voids 1 2 - Constitutional General appearance: Present: cooperative, no acute distress - Respiratory Details: No difficulty with respiration - Gastrointestinal Gastrointestinal Comment(s): Soft, nontender - Musculoskeletal Musculoskeletal Comment(s): Left lower extremity swelling, mild - Psychiatric Psychiatric: Present: A&O x's 3 - Labs CBC & Chem 7: 12/30/24 06:44 12/30/24 06:31 Labs: Abnormal Lab Results - Last 24 Hours (Table) 12/29/24 12/29/24 12/30/24 Range/Units 13:04 21:16 06:31 WBC (4.50-10.00) 10*3/uL RBC (4.10-5.20) 10*6/uL Hct (37.2-46.3) % Immature Gran # (0.00-0.04) 10*3/uL Neutrophils # (1.80-7.70) 10*3/uL APTT 117.2 H* 69.4 H (22.0-30.0) sec Creatinine 0.50 L (0.52-1.04) mg/dL 12/30/24 12/30/24 Range/Units 06:34 06:44 WBC 14.40 H (4.50-10.00) 10*3/uL RBC 3.76 L (4.10-5.20) 10*6/uL Hct 36.1 L (37.2-46.3) % Immature Gran # 0.06 H (0.00-0.04) 10*3/uL Neutrophils # 11.85 H (1.80-7.70) 10*3/uL APTT 69.2 H (22.0-30.0) sec Creatinine (0.52-1.04) mg/dL Microbiology - Last 24 Hours (Table) 12/27/24 11:05 Gram Stain - Final Aspirate Body Fluid Culture - Final Staphylococcus simulans 12/26/24 13:25 Blood Culture - Preliminary Blood Assessment and Plan Plan: Case discussed with orthopedic surgery and patient today. We will discuss with IR for drainage catheter placement in the AM. If they are unable, would recommend transfer to tertiary care facility for IR service with additional resources to drain this Psoas collection. Continue ID recommendations on antibiotics.
--- NOTE | 2024-12-30 11:44 | P.PN ---
Subjective Progress Note Date: 12/30/24 Principal diagnosis: Left psoas abscess, left lower extremity DVT, history of left total hip arthroplasty Patient was evaluated today at bedside, her daughter was also present, she was resting in her hospital bed. Patient feels that the swelling is improving in her leg a little bit. She continues to have no significant hip pain. She denies any headaches, lightheadedness, chest pain or shortness of breath. Objective - Vital Signs Vital signs: Vital Signs Temp 98.0 F 12/30/24 07:01 Pulse 98 12/30/24 07:01 Resp 18 12/30/24 07:01 BP 131/78 12/30/24 07:01 Pulse Ox 96 12/30/24 07:01 FiO2 Intake & Output 12/29/24 12/30/24 12/30/24 18:59 06:59 18:59 Intake Total 1092.619 214.675 180 Balance 1092.619 214.675 180 Intake: Intake, IV Titration 132.619 214.675 Amount Heparin Sod,Pork in 0.45% 132.619 214.675 NaCl 25,000 unit In 0.45 % NaCl 1 250ml.bag @ 18 UNITS/KG/HR 17.962 mls/hr IV .[id number] [facility] Rx#: [id number] Oral 960 180 Other: Voiding Method Bedside Commode # Voids 1 2 - Exam Left lower extremity: Generalized soft tissue swelling present throughout most of the extremity worse below the knee, there is some generalized erythema in the lower leg with pitting edema. She has a well-healed incision over the anterior aspect of the knee with generalized swelling. Well-healed incision over the lateral aspect of the left hip, there is no openings in the skin, there is no erythema, there is no areas of fluctuance appreciated Range of motion was difficult for the patient mainly with extension and flexion of the hip along with extension of the knee. She was able to flex the knee. Plantarflexion, dorsiflexion, EHL, FHL are intact. Both logroll maneuver of the extremity along with deep flexion along with internal and external rotation of the hip reproduces no groin pain. Patient has generalized tenderness with palpation to the areas of swelling in the lower leg, she does demonstrate some discomfort in the thigh with palpation. Calf is swollen, no significant tenderness with palpation on exam Sensory exam to light touch throughout that extremity is intact, skin is warm to touch - Labs CBC & Chem 7: 12/30/24 06:44 12/30/24 06:31 Labs: Abnormal Lab Results - Last 24 Hours (Table) 12/29/24 12/29/24 12/30/24 Range/Units 13:04 21:16 06:31 WBC (4.50-10.00) 10*3/uL RBC (4.10-5.20) 10*6/uL Hct (37.2-46.3) % Immature Gran # (0.00-0.04) 10*3/uL Neutrophils # (1.80-7.70) 10*3/uL APTT 117.2 H* 69.4 H (22.0-30.0) sec Creatinine 0.50 L (0.52-1.04) mg/dL 12/30/24 12/30/24 Range/Units 06:34 06:44 WBC 14.40 H (4.50-10.00) 10*3/uL RBC 3.76 L (4.10-5.20) 10*6/uL Hct 36.1 L (37.2-46.3) % Immature Gran # 0.06 H (0.00-0.04) 10*3/uL Neutrophils # 11.85 H (1.80-7.70) 10*3/uL APTT 69.2 H (22.0-30.0) sec Creatinine (0.52-1.04) mg/dL Microbiology - Last 24 Hours (Table) 12/27/24 11:05 Gram Stain - Final Aspirate Body Fluid Culture - Final Staphylococcus simulans 12/26/24 13:25 Blood Culture - Preliminary Blood Assessment and Plan Assessment: Left lower extremity pain Left lower extremity swelling/edema Left lower extremity DVT Left psoas muscle abscess Concerns for left hip periprosthetic infection Multiple medical comorbidities Plan: Pain control, oral and IV medication as needed DVT prophylaxis per primary medical service Other medical specialty recommendations appreciated Very low concern at this time for infection involving the left hip hardware Await interventional radiology recommendations with regards to possible drain placement for left psoas abscess Will continue to follow patient Time with Patient: Less than 30
--- NOTE | 2024-12-30 17:12 | P.PN ---
Subjective Progress Note Date: 12/30/24 Principal diagnosis: Reason for follow-up is left iliopsoas abscess/septic hip Patient is a 69-year-old female with a past medical history significant for hypertension hyperlipidemia RA in this patient who did have bilateral knee and hip replacement and did have a fall about a week ago hitting her left side of the body patient did have a CT of the left hip suggestive of left iliopsoas abscess prompting this consultation. On today's evaluation that is 12/30/2024, Patient is afebrile patient is currently on room air and denies having any shortness of breath, the patient denies any chest pain or cough, the patient denies any nausea vomiting did not have any abdominal pain and no diarrhea, patient mention improvement with pain to the left hip area. Patient white count is 14.40, creatinine 0.50 culture now growing Staphylococcus simulans oxacillin sensitive blood culture negative Objective - Vital Signs Vital signs: Vital Signs Temp 99.7 F H 12/30/24 13:14 Pulse 94 12/30/24 13:14 Resp 16 12/30/24 13:14 BP 126/74 12/30/24 13:14 Pulse Ox 97 12/30/24 13:14 FiO2 Intake & Output 12/29/24 12/30/24 12/30/24 18:59 06:59 18:59 Intake Total 1092.619 214.675 300 Balance 1092.619 214.675 300 Intake: Intake, IV Titration 132.619 214.675 Amount Heparin Sod,Pork in 0.45% 132.619 214.675 NaCl 25,000 unit In 0.45 % NaCl 1 250ml.bag @ 18 UNITS/KG/HR 17.962 mls/hr IV .[id number] [facility] Rx#: [id number] Oral 960 300 Other: Voiding Method Bedside Commode # Voids 1 2 - Exam GENERAL DESCRIPTION: An elderly female lying in bed in no distress RESPIRATORY SYSTEM: Unlabored breathing , decreased breath sounds at bases HEART: S1 S2 regular rate and rhythm , ABDOMEN: Soft , no tenderness EXTREMITIES: No edema feet - Labs CBC & Chem 7: 12/30/24 06:44 12/30/24 06:31 Labs: Abnormal Lab Results - Last 24 Hours (Table) 12/29/24 12/30/24 12/30/24 Range/Units 21:16 06:31 06:34 WBC (4.50-10.00) 10*3/uL RBC (4.10-5.20) 10*6/uL Hct (37.2-46.3) % Immature Gran # (0.00-0.04) 10*3/uL Neutrophils # (1.80-7.70) 10*3/uL APTT 69.4 H 69.2 H (22.0-30.0) sec Creatinine 0.50 L (0.52-1.04) mg/dL 12/30/24 Range/Units 06:44 WBC 14.40 H (4.50-10.00) 10*3/uL RBC 3.76 L (4.10-5.20) 10*6/uL Hct 36.1 L (37.2-46.3) % Immature Gran # 0.06 H (0.00-0.04) 10*3/uL Neutrophils # 11.85 H (1.80-7.70) 10*3/uL APTT (22.0-30.0) sec Creatinine (0.52-1.04) mg/dL Microbiology - Last 24 Hours (Table) 12/27/24 11:05 Gram Stain - Final Aspirate Body Fluid Culture - Final Staphylococcus simulans 12/26/24 13:25 Blood Culture - Preliminary Blood Assessment and Plan (1) Leukocytosis Current Visit: Yes Status: Acute Code(s): D72.829 - ELEVATED WHITE BLOOD CELL COUNT, UNSPECIFIED SNOMED Code(s): 233496371 (2) Psoas abscess, left Current Visit: Yes Status: Acute Code(s): K68.12 - PSOAS MUSCLE ABSCESS SNOMED Code(s): 610375834 Plan: 1patient presented the hospital with worsening pain to the left hip area and anterior thigh in this patient who recently did have a fall with evidence of a left psoas fluid collection reported as an abscess with a question of abscess versus possible hematoma as the symptoms started after a fall patient not running any fever though did have elevated white count which may be increase in the case of hematoma as well however abscess not entirely excluded and will cover with antibiotic cover for both gram-positive as well as gram-negative 2patient is status post IR drainage of this fluid with concern for possible communicating with the hip joint orthopedics already on the case, WBC scan did not mention any uptake in the left hip 3patient local culture currently growing Staphylococcus simulans which is oxacillin sensitive will discontinue vancomycin start the patient on cefazolin 2 g every 8 hour, multiple question concern answered Dictation was produced using [employer] software. please excuse any grammatical, word or spelling errors. Time with Patient: Less than 30
--- NOTE | 2024-12-30 22:05 | P.PN ---
Subjective Progress Note Date: 12/30/24 This is a pleasant 69-year-old female who presented to the emergency department with recent fall approximately 2 weeks ago and has been having left-sided hip pain and underwent imaging noted to have a left psoas abscess. Patient reports she follows with Dr. Richard Rose in the outpatient setting with a past medical history of hyperlipidemia, hypertension, rheumatoid arthritis, previous orthopedic interventions of the knees and hips, morbid obesity, denies alcohol or cigarette use or any illicit drugs. Hip x-ray revealed no acute posttraumatic osseous abnormality of the left hip with no fractures noted. Venous Doppler was performed as there has been increased swelling and pain and was noted to be positive on the left from the IV to distal femoral vein and has been started on IV heparin. CT of the head performed showing an intrapelvic left psoas muscle abscess with extension into the inguinal region and anterior thigh. Labs reviewed on admission reveal a white count of 19.61, hemoglobin stable at 15.3, platelets 215, sodium 141 with a potassium of 2.9 with replacement and repeat is 4.4, BUN is 25 with a creatinine of 0.58. Urinalysis was also performed and urine was dark and cloudy with elevated white count, will add urine culture. Interventional radiology is consulted for possible abscess drainage with infectious disease following maintained on antibiotics and recommending culture of this abscess. Vascular surgery along with orthopedics have been consulted and patient is being admitted. 12/28/2024 Patient was seen and evaluated in follow-up with multiple consultations following including infectious disease, orthopedics, vascular surgery, and general surgery. Patient is maintained on antibiotics in the form of cefepime and vancomycin while awaiting cultures to finalize. Patient is status post IR drainage of the left psoas abscess with preliminary culture showing Staphylococcus simulans and infectious diseases following. Orthopedics has evaluated the patient recommending a WBC bone scan which is pending for today.. No immediate plans for surgical intervention per orthopedics but if requiring surgery given the extent of the abscess into the groin, recommending general surgery consult and if requiring any further surgery may need transfer to a tertiary care treatment center. Awaiting WBC scan. White count remains elevated at 13.79, sodium is 141 with a potassium of 4.2, BUN is 16.1 with a creatinine of 0.5. Patient is pretty bedbound at this point with extreme weakness. 12/29/2024 Patient is seen in follow-up today with multiple consultations following maintained on IV antibiotics in the form of vancomycin and cefepime has been discontinued. White count remains elevated at 13 and hemoglobin is stable at 12.6, sodium 137 with a potassium of 3.9, BUN is 14 with a creatinine 0.5, magnesium is 1.8. Patient underwent WBC scan which revealed a mild uptake within the thigh on the left that may be related to the patient's abscess with no suspicions uptake surrounding the left hip prosthesis. Orthopedics is following with no plans of surgical intervention at this time. Vascular surgery following as well for the left lower extremity DVT and will continue with current supportive care with elevating the left lower extremity and compression. Patient is continued on IV heparin for now and will continue with compression stockings of the left lower extremity. General surgery consulted regarding the left psoas abscess that is extending into the inguinal region and anterior thigh and recommending pigtail catheter placement into the abscess cavity and also reports that surgical intervention would be quite invasive based on the location of the abscess and if unable to perform the pigtail catheter by interventional radiology, then would recommend transfer to higher level of care for an evaluation. Will await IR evaluation for possible pigtail catheter placement. Continue current regimen and continue on IV heparin for now. Follow-up on repeat labs and replace electrolytes per protocol. Patient has remained afebrile 12/30/2024 Patient is seen in follow-up today with multiple consultations following was continued on vancomycin and culture showing Staphylococcus simulans and being transition to cefazolin per ID recommendations. Patient continued elevating left lower extremity and is having some improvements in pain and swelling. Patient has been evaluated by orthopedics with no immediate plans for surgical intervention recommending general surgery consult given the extent of the abscess into the pelvic region. General surgery recommends a drainage catheter into that abscess and if needing further intervention and unable to perform this drainage catheter placement by interventional radiology, then would recommend [facility] for tertiary treatment center evaluation. White count remains elevated at 14.4 and patient is afebrile. Hemoglobin is stable along with platelets at 217. Creatinine is 0.5 and patient is continued on IV heparin for now with vascular following for left leg DVT. Review of systems: Constitutional: No reports of fatigue, fever, or chills Cardiovascular: No reports of chest pain or palpitations Respiratory: No reports of shortness of breath or cough GI: No reports of nausea, vomiting, or diarrhea : No reports of dysuria or retention Neurovascular: reports of generalized weakness left hip and thigh area pain although feels slightly improved All medications have been reviewed PHYSICAL EXAMINATION: GENERAL: The patient is alert and oriented x3, not in any acute distress. Well d eveloped, morbidly obese HEENT: Pupils are round and equally reacting to light. EOMI. No scleral icterus. No conjunctival pallor. Normocephalic, atraumatic. No pharyngeal erythema. No thyromegaly. CARDIOVASCULAR: S1 and S2 muffled PULMONARY: Diminished breath sounds bilaterally otherwise chest is clear to auscultation, no wheezing or crackles. ABDOMEN: Soft, obese, nontender, nondistended, normoactive bowel sounds. No palpable organomegaly. MUSCULOSKELETAL: Left hip swelling noted with tenderness on palpation, left lower extremity swelling is improving and elevated with compression stockings EXTREMITIES: No cyanosis, clubbing, or pedal edema. Left lower extremity edema, improving NEUROLOGICAL: Gross neurological examination did not reveal any focal deficits. Diffusely weak SKIN: No rashes. Assessment: Left hip pain status post fall 2 weeks ago with left intrapelvic psoas abscess, status post drainage with cultures showing Staphylococcus simulans with sensitivities Left lower extremity swelling and pain with positive DVT noted, continued on IV heparin Abnormal urinalysis with reported pain and discomfort with voiding, acute urinary tract infection ruled out, likely asymptomatic bacteriuria, cultures are negative Leukocytosis, possibly secondary to assessment #1, left psoas abscess History of hyperlipidemia Hypertension history History of rheumatoid arthritis Hypokalemia, being replaced and improved Morbid obesity with a BMI of 40.2 GI prophylaxis DVT prophylaxis on heparin Full code Plan: Patient was admitted with multiple consultations following including vascular surgery, infectious disease, orthopedics, interventional radiology. Patient is status post psoas abscess drainage with interventional radiology with cultures pending. Patient is now being placed on cefazolin per ID recommendations with culture showing Staphylococcus simulans Patient is maintained on IV heparin per vascular surgery and will continue, monitor for any bleeding Continue to elevate left lower extremity while at rest. Continue bedrest for now until cleared by consultations. Continue with Jim wraps and/or compression stockings to lower extremities Per orthopedics no plans for immediate surgical intervention although given the extent of the abscess they do not feel it is a periprosthetic infection on the left hip arthroplasty previously and if requiring surgical intervention would recommend a tertiary treatment center. General surgery was consulted for evaluation of possible surgical intervention of this abscess. WBC scan not suspicious of any uptake at the previous periprosthetic area on the left hip. General surgery evaluated recommending reevaluation from interventional radiology for possible pigtail catheter to that abscess location given the extent of it if interventional radiology is unable to place the catheter, would recommend transferring to a tertiary treatment center for evaluation Case management consulted to evaluate and verify coverage if patient is requiring IV antibiotics outpatient or if patient will require ECF. Follow-up on repeat labs and replace electrolytes per protocol. Monitor for any fevers and white count closely as it is mildly elevated at 14 today The impression and plan of care has been dictated as a scribe by Naye Meng, Nurse Practitioner as directed. Dr. Abby MD I have performed a history and examination and MDM of this patient, discussed the same with the dictator, and agree with the dictator's assessment and plan as written ,documented as a scribe. Based on total visit time, I have performed more than 50% of the visit. Objective - Vital Signs Vital signs: Vital Signs Temp 98.0 F 12/30/24 07:01 Pulse 98 12/30/24 07:01 Resp 18 12/30/24 07:01 BP 131/78 12/30/24 07:01 Pulse Ox 96 12/30/24 07:01 FiO2 Intake & Output 12/29/24 12/30/24 12/30/24 18:59 06:59 18:59 Intake Total 1092.619 214.675 Balance 1092.619 214.675 Intake: Intake, IV Titration 132.619 214.675 Amount Heparin Sod,Pork in 0.45% 132.619 214.675 NaCl 25,000 unit In 0.45 % NaCl 1 250ml.bag @ 18 UNITS/KG/HR 17.962 mls/hr IV .[id number] [facility] Rx#: [id number] Oral 960 Other: Voiding Method Bedside Commode # Voids 1 2 - Labs CBC & Chem 7: 12/30/24 06:44 12/30/24 06:31 Labs: Abnormal Lab Results - Last 24 Hours (Table) 12/29/24 12/29/24 12/29/24 Range/Units 06:38 13:04 21:16 WBC 13.00 H (4.50-10.00) 10*3/uL RBC 3.89 L (4.10-5.20) 10*6/uL Hct 37.1 L (37.2-46.3) % MCH 32.4 H (27.0-32.0) pg Immature Gran # 0.07 H (0.00-0.04) 10*3/uL Neutrophils # 11.09 H (1.80-7.70) 10*3/uL APTT 117.2 H* 69.4 H (22.0-30.0) sec 12/30/24 Range/Units 06:44 WBC 14.40 H (4.50-10.00) 10*3/uL RBC 3.76 L (4.10-5.20) 10*6/uL Hct 36.1 L (37.2-46.3) % MCH (27.0-32.0) pg Immature Gran # 0.06 H (0.00-0.04) 10*3/uL Neutrophils # 11.85 H (1.80-7.70) 10*3/uL APTT (22.0-30.0) sec Microbiology - Last 24 Hours (Table) 12/26/24 13:25 Blood Culture - Preliminary Blood
[2024-12-30] MEDS: ceFAZolin 2 GM in DEXTROSE 5% IN WATER 50 ML IVPB SCH (23:09)
[2024-12-31 08:08] LABS: ALT 17 U/L (8-44); AST 20 U/L (13-35); Albumin 3.2 g/dL (3.8-4.9); Albumin/Globulin Ratio 2.29 Ratio (1.60-3.17); Alkaline Phosphatase 60 U/L (41-126); Blood Urea Nitrogen 12.4 mg/dL (9.0-27.0); Calcium 8.5 mg/dL (8.7-10.3); Carbon Dioxide 21.1 mmol/L (21.6-31.8); Chloride 113 mmol/L (96-109); Globulin 1.4 g/dL (1.6-3.3); Glucose 104 mg/dL (70-110); Potassium 3.6 mmol/L (3.5-5.5); Sodium 142 mmol/L (135-145); Total Bilirubin 0.3 mg/dL (0.3-1.2); Total Protein 4.6 g/dL (6.2-8.2)
[2024-12-31 08:09] LABS: Basophils # (A) 0.04 X 10*3/uL (0.00-0.10); Basophils % (A) 0.3 %; Eosinophils # (A) 0.32 X 10*3/uL (0.04-0.35); Eosinophils % (A) 2.7 %; HCT 36.7 % (37.2-46.3); HGB 12.1 g/dL (12.0-15.0); Lymphocytes # (A) 1.48 X 10*3/uL (0.90-5.00); Lymphocytes % (A) 12.6 %; MCH 31.9 pg (27.0-32.0); MCV 96.8 FL (80.0-97.0); Mean Platelet Volume 10.3 FL (9.5-12.2); Monocytes # (A) 0.57 X 10*3/uL (0.20-1.00); Monocytes % (A) 4.9 %; NRBC Per 100 WBC 0 X 10*3/uL (0.00-0.01); Neutrophils # (A) 9.27 X 10*3/uL (1.80-7.70); Neutrophils % (A) 79.1 %; Platelet Count 232 X 10*3/uL (140-440); RBC 3.79 X 10*6/uL (4.10-5.20); RDW 12.9 % (11.5-14.5); WBC 11.73 X 10*3/uL (4.50-10.00)
--- NOTE | 2024-12-31 09:42 | P.PN ---
Subjective Progress Note Date: 12/31/24 Principal diagnosis: Left psoas abscess, left lower extremity DVT, history of left total hip arthroplasty Patient was evaluated today at bedside, her daughter was also present, she was resting in her hospital bed. Awaiting IR recommendations with regards to possible drain placement. She continues to have no significant hip pain. She denies any headaches, lightheadedness, chest pain or shortness of breath. Objective - Vital Signs Vital signs: Vital Signs Temp 97.7 F 12/31/24 06:40 Pulse 75 12/31/24 06:40 Resp 16 12/31/24 06:40 BP 133/81 12/31/24 06:40 Pulse Ox 98 12/31/24 06:40 FiO2 Intake & Output 12/30/24 12/31/24 12/31/24 18:59 06:59 18:59 Intake Total 1280 247.238 Balance 1280 247.238 Intake: Intake, IV Titration 247.238 Amount Heparin Sod,Pork in 0.45% 247.238 NaCl 25,000 unit In 0.45 % NaCl 1 250ml.bag @ 18 UNITS/KG/HR 17.962 mls/hr IV .[id number] [facility] Rx#: [id number] Oral 1280 Other: # Voids 2 - Exam Left lower extremity: Generalized soft tissue swelling present throughout most of the extremity worse below the knee, there is some generalized erythema in the lower leg with pitting edema. She has a well-healed incision over the anterior aspect of the knee with generalized swelling. Well-healed incision over the lateral aspect of the left hip, there is no openings in the skin, there is no erythema, there is no areas of fluctuance appreciated Range of motion was difficult for the patient mainly with extension and flexion of the hip along with extension of the knee. She was able to flex the knee. Plantarflexion, dorsiflexion, EHL, FHL are intact. Both logroll maneuver of the extremity along with deep flexion along with internal and external rotation of the hip reproduces no groin pain. Patient has generalized tenderness with palpation to the areas of swelling in the lower leg, she does demonstrate some discomfort in the thigh with palpation. Calf is swollen, no significant tenderness with palpation on exam Sensory exam to light touch throughout that extremity is intact, skin is warm to touch - Labs CBC & Chem 7: 12/31/24 05:38 12/31/24 05:38 Labs: Abnormal Lab Results - Last 24 Hours (Table) 12/31/24 12/31/24 12/31/24 Range/Units 05:38 05:38 05:38 WBC 11.73 H (4.50-10.00) X 10*3/uL RBC 3.79 L (4.10-5.20) X 10*6/uL Hct 36.7 L (37.2-46.3) % Immature Gran # 0.05 H (0.00-0.04) X 10*3/uL Neutrophils # 9.27 H (1.80-7.70) X 10*3/uL APTT 48.1 H (22.0-30.0) sec Chloride 113 H (96-109) mmol/L Carbon Dioxide 21.1 L (21.6-31.8) mmol/L Creatinine 0.4 L (0.6-1.5) mg/dL BUN/Creatinine Ratio 31.00 H (12.00-20.00) Ratio Calcium 8.5 L (8.7-10.3) mg/dL Total Protein 4.6 L (6.2-8.2) g/dL Albumin 3.2 L (3.8-4.9) g/dL Globulin 1.4 L (1.6-3.3) g/dL Microbiology - Last 24 Hours (Table) 12/27/24 11:05 Gram Stain - Final Aspirate Body Fluid Culture - Final Staphylococcus simulans Assessment and Plan Assessment: Left lower extremity pain Left lower extremity swelling/edema Left lower extremity DVT Left psoas muscle abscess Concerns for left hip periprosthetic infection Multiple medical comorbidities Plan: Pain control, oral and IV medication as needed DVT prophylaxis per primary medical service Other medical specialty recommendations appreciated Very low concern at this time for infection involving the left hip hardware Await interventional radiology recommendations with regards to possible drain placement for left psoas abscess Orthopedically patient remained stable, please contact our service with any further questions regarding the patient Time with Patient: Less than 30
--- NOTE | 2024-12-31 11:02 | P.PN ---
Subjective Progress Note Date: 12/31/24 Principal diagnosis: Left lower extremity DVT Patient is seen and examined today as a follow-up. Left lower extremity swelling is improving with thigh-high DIANE hose on. General surgery is on consultation they were recommending pigtail catheter placed by interventional radiology. Patient remains on IV heparin drip secondary to possible procedure/intervention. She denies any shortness of breath or chest pain. Objective - Vital Signs Vital signs: Vital Signs Temp 97.7 F 12/31/24 06:40 Pulse 75 12/31/24 06:40 Resp 16 12/31/24 06:40 BP 133/81 12/31/24 06:40 Pulse Ox 98 12/31/24 06:40 FiO2 Intake & Output 12/30/24 12/31/24 12/31/24 18:59 06:59 18:59 Intake Total 1280 247.238 Balance 1280 247.238 Intake: Intake, IV Titration 247.238 Amount Heparin Sod,Pork in 0.45% 247.238 NaCl 25,000 unit In 0.45 % NaCl 1 250ml.bag @ 18 UNITS/KG/HR 17.962 mls/hr IV .[id number] [facility] Rx#: [id number] Oral 1280 Other: # Voids 2 - Exam General appearance: The patient is alert, oriented, appears in no acute distress. HET: Head is normocephalic and atraumatic. Neck: Supple. Heart: Regular. Lungs: Equal expansion, normal respiratory effort. Abdomen: Soft,nondistended. Extremities: Left lower extremity swelling along entire length of leg and foot. Thigh-high DIANE hose in place. Neurological: Alert and oriented. - Labs CBC & Chem 7: 12/31/24 05:38 12/31/24 05:38 Labs: Abnormal Lab Results - Last 24 Hours (Table) 12/31/24 12/31/24 12/31/24 Range/Units 05:38 05:38 05:38 WBC 11.73 H (4.50-10.00) X 10*3/uL RBC 3.79 L (4.10-5.20) X 10*6/uL Hct 36.7 L (37.2-46.3) % Immature Gran # 0.05 H (0.00-0.04) X 10*3/uL Neutrophils # 9.27 H (1.80-7.70) X 10*3/uL APTT 48.1 H (22.0-30.0) sec Chloride 113 H (96-109) mmol/L Carbon Dioxide 21.1 L (21.6-31.8) mmol/L Creatinine 0.4 L (0.6-1.5) mg/dL BUN/Creatinine Ratio 31.00 H (12.00-20.00) Ratio Calcium 8.5 L (8.7-10.3) mg/dL Total Protein 4.6 L (6.2-8.2) g/dL Albumin 3.2 L (3.8-4.9) g/dL Globulin 1.4 L (1.6-3.3) g/dL Microbiology - Last 24 Hours (Table) 12/27/24 11:05 Gram Stain - Final Aspirate Body Fluid Culture - Final Staphylococcus simulans Assessment and Plan Assessment: 1. Left lower extremity DVT likely provoked from psoas muscle abscess compre ssion 2. Intrapelvic left psoas muscle abscess with extension into the inguinal region and anterior thigh per left hip CT report 3. Left lower extremity pain 4. Hypokalemia 5. Recent fall 6. History of previous hip replacement 7. Obesity Plan: 1. Patient is status post drainage of fluid collection in left psoas muscle. 2. May transition to oral anticoagulation of your choice when cleared by surgery 3. Elevate left lower extremity 4. Continue thigh-high DIANE hose to left lower extremity 5. Continue with recommendations from orthopedics/general surgery Thank you for this consultation, we we will sign off at this time. Outpatient follow-up with vascular surgery following discharge. The impression and plan of care has been dictated as directed. Dr. Harper Gardner I performed a history and examination of this patient, discussed the same with the dictator. I agree with the dictator's note ,documented as a scribe. Any additional findings or plans will be noted.
--- NOTE | 2024-12-31 13:21 | P.PN ---
Subjective Progress Note Date: 12/31/24 SURGICAL PROGRESS NOTE CHIEF COMPLAINT: Fall with psoas fluid collection HISTORY OF PRESENT ILLNESS: Patient reports some mild pain in the left upper thigh and lower abdomen. She reports that the pain is getting last. She was evaluated by IR service and they are planning drain placement for tomorrow. Afebrile. WBC 11.73 Hgb 12.1 platelets 232 PHYSICAL EXAM: VITAL SIGNS: Reviewed. GENERAL: Well-developed in no acute distress. HEENT: No sclera icterus. Extraocular movements grossly intact. Moist buccal mucosa. Head is atraumatic, normocephalic. ABDOMEN: Soft. Nondistended. Nontender. Obese Extremities: Left leg edema NEUROLOGIC: Alert and oriented. Cranial nerves II through XII grossly intact. ASSESSMENT: 1. Left psoas abscess 2. Left leg DVT 3. Fall PLAN: - Patient scheduled for IR drain placement tomorrow - Continue antibiotics Physician Advertisement Compositor note has been reviewed by physician. Signing provider agrees with the documented findings, assessment, and plan of care. Objective - Vital Signs Vital signs: Vital Signs Temp 97.7 F 12/31/24 06:40 Pulse 75 12/31/24 06:40 Resp 16 12/31/24 06:40 BP 133/81 12/31/24 06:40 Pulse Ox 98 12/31/24 06:40 FiO2 Intake & Output 12/30/24 12/31/24 12/31/24 18:59 06:59 18:59 Intake Total 1280 247.238 Balance 1280 247.238 Intake: Intake, IV Titration 247.238 Amount Heparin Sod,Pork in 0.45% 247.238 NaCl 25,000 unit In 0.45 % NaCl 1 250ml.bag @ 18 UNITS/KG/HR 17.962 mls/hr IV .[id number] [facility] Rx#: [id number] Oral 1280 Other: # Voids 2 - Labs CBC & Chem 7: 12/31/24 05:38 12/31/24 05:38 Labs: Abnormal Lab Results - Last 24 Hours (Table) 12/31/24 12/31/24 12/31/24 Range/Units 05:38 05:38 05:38 WBC 11.73 H (4.50-10.00) X 10*3/uL RBC 3.79 L (4.10-5.20) X 10*6/uL Hct 36.7 L (37.2-46.3) % Immature Gran # 0.05 H (0.00-0.04) X 10*3/uL Neutrophils # 9.27 H (1.80-7.70) X 10*3/uL APTT 48.1 H (22.0-30.0) sec Chloride 113 H (96-109) mmol/L Carbon Dioxide 21.1 L (21.6-31.8) mmol/L Creatinine 0.4 L (0.6-1.5) mg/dL BUN/Creatinine Ratio 31.00 H (12.00-20.00) Ratio Calcium 8.5 L (8.7-10.3) mg/dL Total Protein 4.6 L (6.2-8.2) g/dL Albumin 3.2 L (3.8-4.9) g/dL Globulin 1.4 L (1.6-3.3) g/dL Microbiology - Last 24 Hours (Table) 12/27/24 11:05 Gram Stain - Final Aspirate Body Fluid Culture - Final Staphylococcus simulans
[2024-12-31] MEDS ORDERED: VANCOMYCIN TROUGH DUE 1 EACH MISC MISCELLANE ONE (14:00)
--- NOTE | 2025-01-01 05:27 | P.PN ---
Subjective Progress Note Date: 12/31/24 This is a pleasant 69-year-old female who presented to the emergency department with recent fall approximately 2 weeks ago and has been having left-sided hip pain and underwent imaging noted to have a left psoas abscess. Patient reports she follows with Dr. Richard Rose in the outpatient setting with a past medical history of hyperlipidemia, hypertension, rheumatoid arthritis, previous orthopedic interventions of the knees and hips, morbid obesity, denies alcohol or cigarette use or any illicit drugs. Hip x-ray revealed no acute posttraumatic osseous abnormality of the left hip with no fractures noted. Venous Doppler was performed as there has been increased swelling and pain and was noted to be positive on the left from the IV to distal femoral vein and has been started on IV heparin. CT of the head performed showing an intrapelvic left psoas muscle abscess with extension into the inguinal region and anterior thigh. Labs reviewed on admission reveal a white count of 19.61, hemoglobin stable at 15.3, platelets 215, sodium 141 with a potassium of 2.9 with replacement and repeat is 4.4, BUN is 25 with a creatinine of 0.58. Urinalysis was also performed and urine was dark and cloudy with elevated white count, will add urine culture. Interventional radiology is consulted for possible abscess drainage with infectious disease following maintained on antibiotics and recommending culture of this abscess. Vascular surgery along with orthopedics have been consulted and patient is being admitted. 12/28/2024 Patient was seen and evaluated in follow-up with multiple consultations following including infectious disease, orthopedics, vascular surgery, and general surgery. Patient is maintained on antibiotics in the form of cefepime and vancomycin while awaiting cultures to finalize. Patient is status post IR drainage of the left psoas abscess with preliminary culture showing Staphylococcus simulans and infectious diseases following. Orthopedics has evaluated the patient recommending a WBC bone scan which is pending for today.. No immediate plans for surgical intervention per orthopedics but if requiring surgery given the extent of the abscess into the groin, recommending general surgery consult and if requiring any further surgery may need transfer to a tertiary care treatment center. Awaiting WBC scan. White count remains elevated at 13.79, sodium is 141 with a potassium of 4.2, BUN is 16.1 with a creatinine of 0.5. Patient is pretty bedbound at this point with extreme weakness. 12/29/2024 Patient is seen in follow-up today with multiple consultations following maintained on IV antibiotics in the form of vancomycin and cefepime has been discontinued. White count remains elevated at 13 and hemoglobin is stable at 12.6, sodium 137 with a potassium of 3.9, BUN is 14 with a creatinine 0.5, magnesium is 1.8. Patient underwent WBC scan which revealed a mild uptake within the thigh on the left that may be related to the patient's abscess with no suspicions uptake surrounding the left hip prosthesis. Orthopedics is following with no plans of surgical intervention at this time. Vascular surgery following as well for the left lower extremity DVT and will continue with current supportive care with elevating the left lower extremity and compression. Patient is continued on IV heparin for now and will continue with compression stockings of the left lower extremity. General surgery consulted regarding the left psoas abscess that is extending into the inguinal region and anterior thigh and recommending pigtail catheter placement into the abscess cavity and also reports that surgical intervention would be quite invasive based on the location of the abscess and if unable to perform the pigtail catheter by interventional radiology, then would recommend transfer to higher level of care for an evaluation. Will await IR evaluation for possible pigtail catheter placement. Continue current regimen and continue on IV heparin for now. Follow-up on repeat labs and replace electrolytes per protocol. Patient has remained afebrile 12/30/2024 Patient is seen in follow-up today with multiple consultations following was continued on vancomycin and culture showing Staphylococcus simulans and being transition to cefazolin per ID recommendations. Patient continued elevating left lower extremity and is having some improvements in pain and swelling. Patient has been evaluated by orthopedics with no immediate plans for surgical intervention recommending general surgery consult given the extent of the abscess into the pelvic region. General surgery recommends a drainage catheter into that abscess and if needing further intervention and unable to perform this drainage catheter placement by interventional radiology, then would recommend [facility] for tertiary treatment center evaluation. White count remains elevated at 14.4 and patient is afebrile. Hemoglobin is stable along with platelets at 217. Creatinine is 0.5 and patient is continued on IV heparin for now with vascular following for left leg DVT. 12/31/2024 Patient seen in follow-up today with interventional radiology reconsulted for the need of possible psoas drainage tube. Apparently heparin was not held per protocol and unable to perform today and we will tentatively plan for tomorrow 01/01/2025. Patient will continue on IV heparin and hold 6 hours per IR recommendations. Patient also being followed by vascular surgery and okay to switch to oral anticoagulant once medically stable and no further surgical intervention ongoing. Cultures finalized as Staphylococcus simulans with sensitivity and patient is maintained on cefazolin with infectious disease following. Will await IR evaluation to discuss further with other consultations regarding treatment plan. There is discussion of possible transfer to tertiary treatment center if patient is requiring surgical intervention given the extent of the abscess into the pelvic region. Patient reports pain is improving slightly and swelling is going down lower extremity. Patient is afebrile with no reports of chest pain or shortness of breath. Patient reports to tolerating diet with no reported nausea or vomiting. Review of systems: Constitutional: No reports of fatigue, fever, or chills Cardiovascular: No reports of chest pain or palpitations Respiratory: No reports of shortness of breath or cough GI: No reports of nausea, vomiting, or diarrhea : No reports of dysuria or retention Neurovascular: reports of generalized weakness left hip and thigh area pain although feels slightly improved All medications have been reviewed PHYSICAL EXAMINATION: GENERAL: The patient is alert and oriented x3, not in any acute distress. Well developed, morbidly obese HEENT: Pupils are round and equally reacting to light. EOMI. No scleral icterus. No conjunctival pallor. Normocephalic, atraumatic. No pharyngeal erythema. No thyromegaly. CARDIOVASCULAR: S1 and S2 muffled PULMONARY: Diminished breath sounds bilaterally otherwise chest is clear to auscultation, no wheezing or crackles. ABDOMEN: Soft, obese, nontender, nondistended, normoactive bowel sounds. No palpable organomegaly. MUSCULOSKELETAL: Left hip swelling noted with tenderness on palpation, left lower extremity swelling is improving and elevated with compression stockings EXTREMITIES: No cyanosis, clubbing, or pedal edema. Left lower extremity edema, improving NEUROLOGICAL: Gross neurological examination did not reveal any focal deficits. Diffusely weak SKIN: No rashes. Assessment: Left hip pain status post fall 2 weeks ago with left intrapelvic psoas abscess, status post drainage with cultures showing Staphylococcus simulans with sensitivities Left lower extremity swelling and pain with positive DVT noted, continued on IV heparin Abnormal urinalysis with reported pain and discomfort with voiding, acute urinary tract infection ruled out, likely asymptomatic bacteriuria, cultures are negative Leukocytosis, possibly secondary to assessment #1, left psoas abscess History of hyperlipidemia Hypertension history History of rheumatoid arthritis Hypokalemia, being replaced and improved Morbid obesity with a BMI of 40.2 GI prophylaxis DVT prophylaxis on heparin Full code Plan: Patient was admitted with multiple consultations following including vascular surgery, infectious disease, orthopedics, interventional radiology. Patient is status post psoas abscess drainage with interventional radiology with cultures Staphylococcus simulans with sensitivities and infectious disease following maintained on cefazolin. Patient is maintained on IV heparin per vascular surgery and will continue, monitor for any bleeding. Okay to transition to oral anticoagulant once stabilized and no further surgical intervention is needed Continue to elevate left lower extremity while at rest. Continue bedrest for now until cleared by consultations. Continue with Jim wraps and/or compression stockings to lower extremities Per orthopedics no plans for immediate surgical intervention although given the extent of the abscess they do not feel it is a periprosthetic infection on the left hip arthroplasty previously and if requiring surgical intervention would recommend a tertiary treatment center. General surgery was consulted for evaluation of possible surgical intervention of this abscess. WBC scan not suspicious of any uptake at the previous periprosthetic area on the left hip. General surgery evaluated recommending reevaluation from interventional radiology for possible pigtail catheter to that abscess location given the extent of it if interventional radiology is unable to place the catheter, would recommend transferring to a tertiary treatment center for evaluation. Patient is agreeable to transfer if absolutely necessary although would like to see if interventional radiology can place the drainage catheter. Interventional radiology was consulted and will hold heparin in the a.m. in the event drainage catheter is able to be placed Case management consulted to evaluate and verify coverage if patient is requiring IV antibiotics outpatient or if patient will require ECF. Per case management if patient does require transfer for tertiary treatment, no authorization is required for her insurance Follow-up on repeat labs and replace electrolytes per protocol. Monitor for any fevers and white count closely as it is mildly elevated although trending down and is currently 11.73 today. Due to multiple complex medical issues, overall prognosis is guarded The impression and plan of care has been dictated by Naye Meng, Nurse Practitioner as directed. Dr. Eron MD I have performed a history and examination and MDM of this patient, discussed the same with the dictator, and agree with the dictator's assessment and plan as written ,documented as a scribe. Based on total visit time, I have performed more than 50% of the visit. Objective - Vital Signs Vital signs: Vital Signs Temp 97.8 F 01/01/25 00:24 Pulse 77 01/01/25 00:24 Resp 15 01/01/25 00:24 BP 115/73 01/01/25 00:24 Pulse Ox 95 01/01/25 00:24 FiO2 Intake & Output 12/31/24 12/31/24 01/01/25 06:59 18:59 06:59 Intake Total 247.238 350 Balance 247.238 350 Intake: Intake, IV Titration 247.238 350 Amount Heparin Sod,Pork in 0.45% 247.238 250 NaCl 25,000 unit In 0.45 % NaCl 1 250ml.bag @ 18 UNITS/KG/HR 17.962 mls/hr IV .[id number] [facility] Rx#: [id number] ceFAZolin 2 gm In 100 Dextrose 5% in Water 50 ml @ 100 mls/hr IVPB Q8HR [facility] Rx#:[id number] Other: # Voids 2 1 - Labs CBC & Chem 7: 12/31/24 05:38 12/31/24 05:38 Labs: Abnormal Lab Results - Last 24 Hours (Table) 12/31/24 12/31/24 12/31/24 Range/Units 05:38 05:38 05:38 WBC 11.73 H (4.50-10.00) X 10*3/uL RBC 3.79 L (4.10-5.20) X 10*6/uL Hct 36.7 L (37.2-46.3) % Immature Gran # 0.05 H (0.00-0.04) X 10*3/uL Neutrophils # 9.27 H (1.80-7.70) X 10*3/uL APTT 48.1 H (22.0-30.0) sec Chloride 113 H (96-109) mmol/L Carbon Dioxide 21.1 L (21.6-31.8) mmol/L Creatinine 0.4 L (0.6-1.5) mg/dL BUN/Creatinine Ratio 31.00 H (12.00-20.00) Ratio Calcium 8.5 L (8.7-10.3) mg/dL Total Protein 4.6 L (6.2-8.2) g/dL Albumin 3.2 L (3.8-4.9) g/dL Globulin 1.4 L (1.6-3.3) g/dL Microbiology - Last 24 Hours (Table) 12/26/24 13:25 Blood Culture - Final Blood
[2025-01-01 08:15] LABS: Basophils # (A) 0.03 X 10*3/uL (0.00-0.10); Basophils % (A) 0.3 %; Eosinophils # (A) 0.22 X 10*3/uL (0.04-0.35); HCT 35.4 % (37.2-46.3); HGB 11.5 g/dL (12.0-15.0); Lymphocytes # (A) 1.26 X 10*3/uL (0.90-5.00); Lymphocytes % (A) 11.6 %; MCH 31.2 pg (27.0-32.0); MCHC 32.5 g/dL (32.0-37.0); MCV 95.9 FL (80.0-97.0); Mean Platelet Volume 10.1 FL (9.5-12.2); Monocytes # (A) 0.54 X 10*3/uL (0.20-1.00); NRBC Per 100 WBC 0 X 10*3/uL (0.00-0.01); Neutrophils # (A) 8.74 X 10*3/uL (1.80-7.70); Neutrophils % (A) 80.6 %; Platelet Count 282 X 10*3/uL (140-440); RBC 3.69 X 10*6/uL (4.10-5.20); RDW 12.9 % (11.5-14.5); WBC 10.84 X 10*3/uL (4.50-10.00)
[2025-01-01 08:46] LABS: Calcium 8.6 mg/dL (8.7-10.3); Carbon Dioxide 22.5 mmol/L (21.6-31.8); Chloride 112 mmol/L (96-109); Glucose 100 mg/dL (70-110); Potassium 3.4 mmol/L (3.5-5.5); Sodium 143 mmol/L (135-145)
[2025-01-01] MEDS: HYDROmorphone 0.5 MG/0.5 ML SYRINGE IVP STA (09:28)
--- NOTE | 2025-01-01 13:28 | P.PN ---
Subjective Progress Note Date: 01/01/25 SURGICAL PROGRESS NOTE CHIEF COMPLAINT: Fall with psoas fluid collection HISTORY OF PRESENT ILLNESS: Patient is status post drain placement by IR service for left psoas abscess. Drainage is purulent. Patient's pain is controlled. She denies any nausea or vomiting. Afebrile. WBC 10.8 Hgb 11.5 PHYSICAL EXAM: VITAL SIGNS: Reviewed. GENERAL: Well-developed in no acute distress. HEENT: No sclera icterus. Extraocular movements grossly intact. Moist buccal mucosa. Head is atraumatic, normocephalic. ABDOMEN: Soft. Nondistended. Nontender. Obese Extremities: Left leg edema NEUROLOGIC: Alert and oriented. Cranial nerves II through XII grossly intact. ASSESSMENT: 1. Left psoas abscess 2. Left leg DVT 3. Fall PLAN: -Patient status post drain placement -Antibiotics per ID service -Continue supportive care Physician Fur Tailor note has been reviewed by physician. Signing provider agrees with the documented findings, assessment, and plan of care. Objective - Vital Signs Vital signs: Vital Signs Temp 98.5 F 01/01/25 07:32 Pulse 84 01/01/25 10:05 Resp 16 01/01/25 10:05 BP 162/84 01/01/25 10:05 Pulse Ox 97 01/01/25 10:05 FiO2 Intake & Output 12/31/24 01/01/25 01/01/25 18:59 06:59 18:59 Intake Total 350 1080 Balance 350 1080 Intake: Intake, IV Titration 350 Amount Heparin Sod,Pork in 0.45% 250 NaCl 25,000 unit In 0.45 % NaCl 1 250ml.bag @ 18 UNITS/KG/HR 17.962 mls/hr IV .[id number] [facility] Rx#: [id number] ceFAZolin 2 gm In 100 Dextrose 5% in Water 50 ml @ 100 mls/hr IVPB Q8HR [facility] Rx#:[id number] Oral 1080 Other: # Voids 1 1 1 - Labs CBC & Chem 7: 01/01/25 05:13 01/01/25 05:13 Labs: Abnormal Lab Results - Last 24 Hours (Table) 01/01/25 01/01/25 Range/Units 05:13 05:13 WBC 10.84 H (4.50-10.00) X 10*3/uL RBC 3.69 L (4.10-5.20) X 10*6/uL Hgb 11.5 L (12.0-15.0) g/dL Hct 35.4 L (37.2-46.3) % Immature Gran # 0.05 H (0.00-0.04) X 10*3/uL Neutrophils # 8.74 H (1.80-7.70) X 10*3/uL Potassium 3.4 L (3.5-5.5) mmol/L Chloride 112 H (96-109) mmol/L Creatinine 0.4 L (0.6-1.5) mg/dL BUN/Creatinine Ratio 30.00 H (12.00-20.00) Ratio Calcium 8.6 L (8.7-10.3) mg/dL Microbiology - Last 24 Hours (Table) 12/26/24 13:25 Blood Culture - Final Blood Assessment and Plan Assessment: s/p IR drainage -purulent output observed -defer to ID timing of discharge -trend wbc, temperature Time with Patient: Less than 30
--- NOTE | 2025-01-01 14:43 | P.PN ---
Subjective Progress Note Date: 12/31/24 Principal diagnosis: Reason for follow-up is left iliopsoas abscess/septic hip Patient is a 69-year-old female with a past medical history significant for hypertension hyperlipidemia RA in this patient who did have bilateral knee and hip replacement and did have a fall about a week ago hitting her left side of the body patient did have a CT of the left hip suggestive of left iliopsoas abscess prompting this consultation. On today's evaluation that is 12/31/2024, patient has been afebrile, patient is breathing comfortably and is currently on room air, patient denies having any chest pain and cough, patient denies nausea vomiting or diarrhea and no abdominal pain, pain to the left hip is currently controlled. Patient white count is down to 11.73, creatinine 0.4 blood culture has been negative Objective - Vital Signs Vital signs: Vital Signs Temp 98.2 F 12/31/24 13:28 Pulse 74 12/31/24 13:28 Resp 16 12/31/24 13:28 BP 136/83 12/31/24 13:28 Pulse Ox 97 12/31/24 13:28 FiO2 Intake & Output 12/30/24 12/31/24 12/31/24 18:59 06:59 18:59 Intake Total 1280 247.238 Balance 1280 247.238 Intake: Intake, IV Titration 247.238 Amount Heparin Sod,Pork in 0.45% 247.238 NaCl 25,000 unit In 0.45 % NaCl 1 250ml.bag @ 18 UNITS/KG/HR 17.962 mls/hr IV .[id number] [facility] Rx#: [id number] Oral 1280 Other: # Voids 2 - Exam GENERAL DESCRIPTION: An elderly female lying in bed in no distress RESPIRATORY SYSTEM: Unlabored breathing , decreased breath sounds at bases HEART: S1 S2 regular rate and rhythm , ABDOMEN: Soft , no tenderness EXTREMITIES: No edema feet - Labs CBC & Chem 7: 01/01/25 05:13 01/01/25 05:13 Labs: Abnormal Lab Results - Last 24 Hours (Table) 12/31/24 12/31/24 12/31/24 Range/Units 05:38 05:38 05:38 WBC 11.73 H (4.50-10.00) X 10*3/uL RBC 3.79 L (4.10-5.20) X 10*6/uL Hct 36.7 L (37.2-46.3) % Immature Gran # 0.05 H (0.00-0.04) X 10*3/uL Neutrophils # 9.27 H (1.80-7.70) X 10*3/uL APTT 48.1 H (22.0-30.0) sec Chloride 113 H (96-109) mmol/L Carbon Dioxide 21.1 L (21.6-31.8) mmol/L Creatinine 0.4 L (0.6-1.5) mg/dL BUN/Creatinine Ratio 31.00 H (12.00-20.00) Ratio Calcium 8.5 L (8.7-10.3) mg/dL Total Protein 4.6 L (6.2-8.2) g/dL Albumin 3.2 L (3.8-4.9) g/dL Globulin 1.4 L (1.6-3.3) g/dL Assessment and Plan (1) Leukocytosis Current Visit: Yes Status: Acute Code(s): D72.829 - ELEVATED WHITE BLOOD CELL COUNT, UNSPECIFIED SNOMED Code(s): 948474431 (2) Psoas abscess, left Current Visit: Yes Status: Acute Code(s): K68.12 - PSOAS MUSCLE ABSCESS SNOMED Code(s): 352764435 Plan: 1patient presented the hospital with worsening pain to the left hip area and anterior thigh in this patient who recently did have a fall with evidence of a left psoas fluid collection reported as an abscess with a question of abscess versus possible hematoma as the symptoms started after a fall patient not running any fever though did have elevated white count which may be increase in the case of hematoma as well however abscess not entirely excluded and will cover with antibiotic cover for both gram-positive as well as gram-negative 2patient is status post IR drainage of this fluid with concern for possible communicating with the hip joint orthopedics already on the case, WBC scan did not mention any uptake in the left hip 3patient local culture currently growing Staphylococcus simulans which is oxacillin sensitive, with the patient is currently covered with cefazolin await IR evaluation and placement of a drainage catheter Dictation was produced using Pacer[employer] software. please excuse any grammatical, word or spelling errors. Time with Patient: Less than 30
--- NOTE | 2025-01-01 14:45 | P.PN ---
Subjective Progress Note Date: 01/01/25 Principal diagnosis: Reason for follow-up is left iliopsoas abscess/septic hip Patient is a 69-year-old female with a past medical history significant for hypertension hyperlipidemia RA in this patient who did have bilateral knee and hip replacement and did have a fall about a week ago hitting her left side of the body patient did have a CT of the left hip suggestive of left iliopsoas abscess prompting this consultation.Patient is status post drainage of the left psoas abscess by IR on 01/01/2025 and placement of a drainage catheter On today's evaluation 01/01/2025, Patient is afebrile this morning patient denies having any chest pain shortness of breath or cough, the patient is currently on room air, patient denies any abdominal pain no diarrhea no nausea no vomiting, pain to the left hip is currently controlled. Patient white count is down to 10.84 creatinine 0.4 Objective - Vital Signs Vital signs: Vital Signs Temp 98.5 F 01/01/25 07:32 Pulse 84 01/01/25 10:05 Resp 16 01/01/25 10:05 BP 162/84 01/01/25 10:05 Pulse Ox 97 01/01/25 10:05 FiO2 Intake & Output 12/31/24 01/01/25 01/01/25 18:59 06:59 18:59 Intake Total 350 1080 Balance 350 1080 Intake: Intake, IV Titration 350 Amount Heparin Sod,Pork in 0.45% 250 NaCl 25,000 unit In 0.45 % NaCl 1 250ml.bag @ 18 UNITS/KG/HR 17.962 mls/hr IV .[id number] [facility] Rx#: [id number] ceFAZolin 2 gm In 100 Dextrose 5% in Water 50 ml @ 100 mls/hr IVPB Q8HR [facility] Rx#:[id number] Oral 1080 Other: # Voids 1 1 1 - Exam GENERAL DESCRIPTION: An elderly female lying in bed in no distress RESPIRATORY SYSTEM: Unlabored breathing , decreased breath sounds at bases HEART: S1 S2 regular rate and rhythm , ABDOMEN: Soft , no tenderness EXTREMITIES: No edema feet - Labs CBC & Chem 7: 01/01/25 05:13 01/01/25 05:13 Labs: Abnormal Lab Results - Last 24 Hours (Table) 06/10/25 06/10/25 Range/Units 05:13 05:13 WBC 10.84 H (4.50-10.00) X 10*3/uL RBC 3.69 L (4.10-5.20) X 10*6/uL Hgb 11.5 L (12.0-15.0) g/dL Hct 35.4 L (37.2-46.3) % Immature Gran # 0.05 H (0.00-0.04) X 10*3/uL Neutrophils # 8.74 H (1.80-7.70) X 10*3/uL Potassium 3.4 L (3.5-5.5) mmol/L Chloride 112 H (96-109) mmol/L Creatinine 0.4 L (0.6-1.5) mg/dL BUN/Creatinine Ratio 30.00 H (12.00-20.00) Ratio Calcium 8.6 L (8.7-10.3) mg/dL Microbiology - Last 24 Hours (Table) 12/26/24 13:25 Blood Culture - Final Blood Assessment and Plan (1) Leukocytosis Current Visit: Yes Status: Acute Code(s): D72.829 - ELEVATED WHITE BLOOD CELL COUNT, UNSPECIFIED SNOMED Code(s): 284642249 (2) Psoas abscess, left Current Visit: Yes Status: Acute Code(s): K68.12 - PSOAS MUSCLE ABSCESS SNOMED Code(s): 556523776 Plan: 1patient presented the hospital with worsening pain to the left hip area and anterior thigh in this patient who recently did have a fall with evidence of a left psoas fluid collection reported as an abscess with a question of abscess ve rsus possible hematoma as the symptoms started after a fall patient not running any fever though did have elevated white count which may be increase in the case of hematoma as well however abscess not entirely excluded and will cover with antibiotic cover for both gram-positive as well as gram-negative 2patient is status post IR drainage of this fluid with concern for possible communicating with the hip joint orthopedics already on the case, WBC scan did not mention any uptake in the left hip, the patient is status post IR placement of a drainage catheter I did review the CT images with Dr. Rodriguez who did mention the abscesses around the prosthetic hip and likely septic arthritis, this info rmation has been shared with the orthopedic [facility] [address] 3patient local culture currently growing Staphylococcus simulans which is oxacillin sensitive, 4for now we will continue the patient on cefazolin 2 g every 8 hour Dictation was produced using [employer] dictation software. please excuse any grammatical, word or spelling errors. Time with Patient: Less than 30
[2025-01-01] MEDS: LOSARTAN-HCTZ 50-12.5 MG 1 EACH TAB PO SCH (15:18)
--- NOTE | 2025-01-02 05:22 | P.PN ---
Subjective Progress Note Date: 01/01/25 This is a pleasant 69-year-old female who presented to the emergency department with recent fall approximately 2 weeks ago and has been having left-sided hip pain and underwent imaging noted to have a left psoas abscess. Patient reports she follows with Dr. Richard Rose in the outpatient setting with a past medical history of hyperlipidemia, hypertension, rheumatoid arthritis, previous orthopedic interventions of the knees and hips, morbid obesity, denies alcohol or cigarette use or any illicit drugs. Hip x-ray revealed no acute posttraumatic osseous abnormality of the left hip with no fractures noted. Venous Doppler was performed as there has been increased swelling and pain and was noted to be positive on the left from the IV to distal femoral vein and has been started on IV heparin. CT of the head performed showing an intrapelvic left psoas muscle abscess with extension into the inguinal region and anterior thigh. Labs reviewed on admission reveal a white count of 19.61, hemoglobin stable at 15.3, platelets 215, sodium 141 with a potassium of 2.9 with replacement and repeat is 4.4, BUN is 25 with a creatinine of 0.58. Urinalysis was also performed and urine was dark and cloudy with elevated white count, will add urine culture. Interventional radiology is consulted for possible abscess drainage with infectious disease following maintained on antibiotics and recommending culture of this abscess. Vascular surgery along with orthopedics have been consulted and patient is being admitted. 12/28/2024 Patient was seen and evaluated in follow-up with multiple consultations following including infectious disease, orthopedics, vascular surgery, and general surgery. Patient is maintained on antibiotics in the form of cefepime and vancomycin while awaiting cultures to finalize. Patient is status post IR drainage of the left psoas abscess with preliminary culture showing Staphylococcus simulans and infectious diseases following. Orthopedics has evaluated the patient recommending a WBC bone scan which is pending for today.. No immediate plans for surgical intervention per orthopedics but if requiring surgery given the extent of the abscess into the groin, recommending general surgery consult and if requiring any further surgery may need transfer to a tertiary care treatment center. Awaiting WBC scan. White count remains elevated at 13.79, sodium is 141 with a potassium of 4.2, BUN is 16.1 with a creatinine of 0.5. Patient is pretty bedbound at this point with extreme weakness. 12/29/2024 Patient is seen in follow-up today with multiple consultations following maintained on IV antibiotics in the form of vancomycin and cefepime has been discontinued. White count remains elevated at 13 and hemoglobin is stable at 12.6, sodium 137 with a potassium of 3.9, BUN is 14 with a creatinine 0.5, magnesium is 1.8. Patient underwent WBC scan which revealed a mild uptake within the thigh on the left that may be related to the patient's abscess with no suspicions uptake surrounding the left hip prosthesis. Orthopedics is following with no plans of surgical intervention at this time. Vascular surgery following as well for the left lower extremity DVT and will continue with current supportive care with elevating the left lower extremity and compression. Patient is continued on IV heparin for now and will continue with compression stockings of the left lower extremity. General surgery consulted regarding the left psoas abscess that is extending into the inguinal region and anterior thigh and recommending pigtail catheter placement into the abscess cavity and also reports that surgical intervention would be quite invasive based on the location of the abscess and if unable to perform the pigtail catheter by interventional radiology, then would recommend transfer to higher level of care for an evaluation. Will await IR evaluation for possible pigtail catheter placement. Continue current regimen and continue on IV heparin for now. Follow-up on repeat labs and replace electrolytes per protocol. Patient has remained afebrile 12/30/2024 Patient is seen in follow-up today with multiple consultations following was continued on vancomycin and culture showing Staphylococcus simulans and being transition to cefazolin per ID recommendations. Patient continued elevating left lower extremity and is having some improvements in pain and swelling. Patient has been evaluated by orthopedics with no immediate plans for surgical intervention recommending general surgery consult given the extent of the abscess into the pelvic region. General surgery recommends a drainage catheter into that abscess and if needing further intervention and unable to perform this drainage catheter placement by interventional radiology, then would recommend [facility] for tertiary treatment center evaluation. White count remains elevated at 14.4 and patient is afebrile. Hemoglobin is stable along with platelets at 217. Creatinine is 0.5 and patient is continued on IV heparin for now with vascular following for left leg DVT. 12/31/2024 Patient seen in follow-up today with interventional radiology reconsulted for the need of possible psoas drainage tube. Apparently heparin was not held per protocol and unable to perform today and we will tentatively plan for tomorrow 01/01/2025. Patient will continue on IV heparin and hold 6 hours per IR recommendations. Patient also being followed by vascular surgery and okay to switch to oral anticoagulant once medically stable and no further surgical intervention ongoing. Cultures finalized as Staphylococcus simulans with sensitivity and patient is maintained on cefazolin with infectious disease following. Will await IR evaluation to discuss further with other consultations regarding treatment plan. There is discussion of possible transfer to tertiary treatment center if patient is requiring surgical intervention given the extent of the abscess into the pelvic region. Patient reports pain is improving slightly and swelling is going down lower extremity. Patient is afebrile with no reports of chest pain or shortness of breath. Patient reports to tolerating diet with no reported nausea or vomiting. 01/01/2025 Patient is seen in follow-up today and heparin has been held this morning scheduled to undergo drainage catheter placement with interventional radiology of the left psoas abscess. Patient is continued on antibiotics in the form of cefazolin per infectious disease and will continue at this time. Orthopedics has evaluated the patient initially unsure of concern with left hip previous arthroplasty involvement of the hardware and is being reviewed with radiology for further evaluation and if patient will require surgical intervention of the left hip, then would recommend transfer to tertiary treatment center. Patient is currently afebrile and white count is trending down at 10.84 and hemoglobin is stable at 11.5. Potassium 3.4 being replaced per protocol. Will follow-up on repeat labs. Await further discussion with consultations regarding possible need for transfer. Review of systems: Constitutional: No reports of fatigue, fever, or chills Cardiovascular: No reports of chest pain or palpitations Respiratory: No reports of shortness of breath or cough GI: No reports of nausea, vomiting, or diarrhea : No reports of dysuria or retention Neurovascular: reports of generalized weakness left hip and thigh area pain although feels slightly improved All medications have been reviewed PHYSICAL EXAMINATION: GENERAL: The patient is alert and oriented x3, not in any acute distress. Well developed, morbidly obese HEENT: Pupils are round and equally reacting to light. EOMI. No scleral icterus. No conjunctival pallor. Normocephalic, atraumatic. No pharyngeal erythema. No thyromegaly. CARDIOVASCULAR: S1 and S2 muffled PULMONARY: Diminished breath sounds bilaterally otherwise chest is clear to auscultation, no wheezing or crackles. ABDOMEN: Soft, obese, nontender, nondistended, normoactive bowel sounds. No palpable organomegaly. MUSCULOSKELETAL: Left hip swelling noted with tenderness on palpation, left lower extremity swelling is improving and elevated with compression stockings EXTREMITIES: No cyanosis, clubbing, or pedal edema. Left lower extremity edema, improving NEUROLOGICAL: Gross neurological examination did not reveal any focal deficits. Diffusely weak SKIN: No rashes. Assessment: Left hip pain status post fall 2 weeks ago with left intrapelvic psoas abscess, status post drainage with cultures showing Staphylococcus simulans with sensitivities Left lower extremity swelling and pain with positive DVT noted, continued on IV heparin Abnormal urinalysis with reported pain and discomfort with voiding, acute urinary tract infection ruled out, likely asymptomatic bacteriuria, cultures are negative Leukocytosis, possibly secondary to assessment #1, left psoas abscess History of hyperlipidemia Hypertension history History of rheumatoid arthritis Hypokalemia, being replaced and improved Morbid obesity with a BMI of 40.2 GI prophylaxis DVT prophylaxis on heparin Full code Plan: Patient was admitted with multiple consultations following including vascular surgery, infectious disease, orthopedics, interventional radiology. Patient is status post psoas abscess drainage with interventional radiology with cultures Staphylococcus simulans with sensitivities and infectious disease following maintained on cefazolin. Heparin has been held morning and patient scheduled undergo drainage catheter of the psoas abscess with interventional radiology. Orthopedics has evaluated the patient and if there is concern of previous left hip periprosthetic involvement, will require tertiary treatment center transfer as it is a complex multipart surgical intervention. Patient is agreeable to transfer if absolutely necessary. Will discuss with other consultations regarding transfer for tertiary treatment. Patient is maintained on IV heparin per vascular surgery and will continue, monitor for any bleeding. Okay to transition to oral anticoagulant once stabilized and no further surgical intervention is needed. Will resume heparin in the event patient may require surgical intervention Continue to elevate left lower extremity while at rest. Continue bedrest for now until cleared by consultations. Continue with Jim wraps and/or compression stockings to lower extremities General surgery was consulted for evaluation of possible surgical intervention of this abscess. WBC scan not suspicious of any uptake at the previous pe riprosthetic area on the left hip. General surgery evaluated recommending reevaluation from interventional radiology for possible pigtail catheter to that abscess location given the extent of it if interventional radiology is unable to place the catheter, would recommend transferring to a tertiary treatment center for evaluation. Patient is agreeable to transfer if absolutely necessary although would like to see if interventional radiology can place the drainage catheter. Case management consulted to evaluate and verify coverage if patient is requiring IV antibiotics outpatient or if patient will require ECF. Per case management if patient does require transfer for tertiary treatment, no authorization is required for her insurance Follow-up on repeat labs and replace electrolytes per protocol. Potassium mildly low at 3.4 and will replace per protocol. Repeat labs ordered for a.m. Monitor for any fevers and white count closely as it is mildly elevated although trending down and is currently 10.84 today. Due to multiple complex medical issues, overall prognosis is guarded The impression and plan of care has been dictated by Naye Meng, Nurse Practitioner as directed. Dr. Eron MD I have performed a history and examination and MDM of this patient, discussed the same with the dictator, and agree with the dictator's assessment and plan as written ,documented as a scribe. Based on total visit time, I have performed more than 50% of the visit. Objective - Vital Signs Vital signs: Vital Signs Temp 98.5 F 01/01/25 07:32 Pulse 84 01/01/25 10:05 Resp 16 01/01/25 10:05 BP 162/84 01/01/25 10:05 Pulse Ox 97 01/01/25 10:05 FiO2 Intake & Output 12/31/24 01/01/25 01/01/25 18:59 06:59 18:59 Intake Total 350 1080 Balance 350 1080 Intake: Intake, IV Titration 350 Amount Heparin Sod,Pork in 0.45% 250 NaCl 25,000 unit In 0.45 % NaCl 1 250ml.bag @ 18 UNITS/KG/HR 17.962 mls/hr IV .[id number] [facility] Rx#: [id number] ceFAZolin 2 gm In 100 Dextrose 5% in Water 50 ml @ 100 mls/hr IVPB Q8HR [facility] Rx#:[id number] Oral 1080 Other: # Voids 1 1 1 - Labs CBC & Chem 7: 01/01/25 05:13 01/01/25 05:13 Labs: Abnormal Lab Results - Last 24 Hours (Table) 01/01/25 01/01/25 Range/Units 05:13 05:13 WBC 10.84 H (4.50-10.00) X 10*3/uL RBC 3.69 L (4.10-5.20) X 10*6/uL Hgb 11.5 L (12.0-15.0) g/dL Hct 35.4 L (37.2-46.3) % Immature Gran # 0.05 H (0.00-0.04) X 10*3/uL Neutrophils # 8.74 H (1.80-7.70) X 10*3/uL Potassium 3.4 L (3.5-5.5) mmol/L Chloride 112 H (96-109) mmol/L Creatinine 0.4 L (0.6-1.5) mg/dL BUN/Creatinine Ratio 30.00 H (12.00-20.00) Ratio Calcium 8.6 L (8.7-10.3) mg/dL Microbiology - Last 24 Hours (Table) 12/26/24 13:25 Blood Culture - Final Blood
--- NOTE | 2025-01-02 07:37 | CT ---
EXAMINATION TYPE: CT guided abscess drainage DATE OF EXAM: 01/01/2025 COMPARISON: Most recent prior CT December 27, 2024 CLINICAL INDICATION: Female, 69 years old with history of See IR consult for order details; PHH, psoa s abscess drainage tube. CT DLP: 3183 mGycm Automated exposure control for dose reduction was used. FINDINGS: Procedure explained to patient. Benefits, alternatives, and risks were discussed. Informed consent wa s obtained. Initial CT localizer images were taken which showed safest allowable access to the left psoas fluid c ollection extending down to the left hip. Overlying skin is cleansed with Betadine. The patient was p repped, draped in the usual sterile fashion, and locally anesthetized. A blunt needle was used to acc ess the left upper pelvic fluid collection. Wire was advanced into collection. Dilation of tract was performed. Then over a guidewire a pig tail catheter was placed. Approximately 5 mL was obtained and sent to the lab for analysis. A vacuum drainage bag was then att ached the catheter by radiology nurse. There was no blood loss and post-procedure hemostasis was ach ieved. The patient tolerated the procedure well without complication. Patient was transferred to [facility] in stable condition. IMPRESSION: CT guided placement of a percutaneous pigtail drainage catheter or left pelvic abscess into left hip which was left in place. [facility], , 01/02/2025 7:35 AM
[2025-01-02 07:58] LABS: Basophils # (A) 0.03 X 10*3/uL (0.00-0.10); Basophils % (A) 0.3 %; HCT 35.9 % (37.2-46.3); HGB 11.7 g/dL (12.0-15.0); Lymphocytes # (A) 1.39 X 10*3/uL (0.90-5.00); Lymphocytes % (A) 13.9 %; MCH 31.6 pg (27.0-32.0); MCHC 32.6 g/dL (32.0-37.0); Mean Platelet Volume 9.9 FL (9.5-12.2); Monocytes # (A) 0.47 X 10*3/uL (0.20-1.00); Monocytes % (A) 4.7 %; NRBC Per 100 WBC 0 X 10*3/uL (0.00-0.01); Neutrophils # (A) 7.87 X 10*3/uL (1.80-7.70); Neutrophils % (A) 78.6 %; Platelet Count 299 X 10*3/uL (140-440); RDW 13.1 % (11.5-14.5); WBC 10.01 X 10*3/uL (4.50-10.00)
[2025-01-02 08:00] VITALS: RESP 17
[2025-01-02 09:19] LABS: ALT 18 U/L (8-44); AST 23 U/L (13-35); Albumin 3.1 g/dL (3.8-4.9); Albumin/Globulin Ratio 2.07 Ratio (1.60-3.17); Alkaline Phosphatase 58 U/L (41-126); Blood Urea Nitrogen 10.6 mg/dL (9.0-27.0); Calcium 8.6 mg/dL (8.7-10.3); Carbon Dioxide 20.7 mmol/L (21.6-31.8); Chloride 110 mmol/L (96-109); Globulin 1.5 g/dL (1.6-3.3); Glucose 91 mg/dL (70-110); Potassium 3.7 mmol/L (3.5-5.5); Sodium 143 mmol/L (135-145); Total Bilirubin 0.3 mg/dL (0.3-1.2); Total Protein 4.6 g/dL (6.2-8.2)
--- NOTE | 2025-01-02 12:00 | P.PN ---
Subjective Progress Note Date: 01/02/25 Principal diagnosis: Left psoas abscess, left lower extremity DVT, history of left total hip arthroplasty Patient was evaluated today at bedside, her daughter was also present, she was resting in her hospital bed. I was contacted by the infectious disease doctor yesterday regarding concern for infection involving the left periprosthetic hip. He did have a discussion with the interventional radiologist that did the drain placement and was able to review the CT images once again. I was also able to discuss the case with the internal medicine providers. Objective - Vital Signs Vital signs: Vital Signs Temp 97.8 F 01/02/25 06:55 Pulse 72 01/02/25 06:55 Resp 17 01/02/25 08:26 BP 123/77 01/02/25 06:55 Pulse Ox 96 01/02/25 06:55 FiO2 Intake & Output 01/01/25 01/02/25 01/02/25 18:59 06:59 18:59 Intake Total 400 575.554 200 Output Total 200 35 Balance 200 540.554 200 Intake: Intake, IV Titration 250 215.554 Amount Heparin Sod,Pork in 0.45% 250 215.554 NaCl 25,000 unit In 0.45 % NaCl 1 250ml.bag @ 18 UNITS/KG/HR 17.962 mls/hr IV .[id number] [facility] Rx#: [id number] Oral 150 360 200 Output: Drainage 200 35 Left Abdomen 200 35 Other: Voiding Method Toilet # Voids 1 1 - Exam Left lower extremity: Generalized soft tissue swelling present throughout most of the extremity worse below the knee, there is some generalized erythema in the lower leg with pitting edema. She has a well-healed incision over the anterior aspect of the knee with generalized swelling. Well-healed incision over the lateral aspect of the left hip, there is no openings in the skin, there is no erythema, there is no areas of fluctuance appreciated Range of motion was difficult for the patient mainly with extension and flexion of the hip along with extension of the knee. She was able to flex the knee. Plantarflexion, dorsiflexion, EHL, FHL are intact. Both logroll maneuver of the extremity along with deep flexion along with internal and external rotation of the hip reproduces no groin pain. Patient has generalized tenderness with palpation to the areas of swelling in the lower leg, she does demonstrate some discomfort in the thigh with palpation. Calf is swollen, no significant tenderness with palpation on exam Sensory exam to light touch throughout that extremity is intact, skin is warm to touch - Labs CBC & Chem 7: 01/02/25 03:03 01/02/25 03:03 Labs: Abnormal Lab Results - Last 24 Hours (Table) 01/01/25 01/02/25 01/02/25 Range/Units 23:19 03:03 03:03 WBC 10.01 H (4.50-10.00) X 10*3/uL RBC 3.70 L (4.10-5.20) X 10*6/uL Hgb 11.7 L (12.0-15.0) g/dL Hct 35.9 L (37.2-46.3) % Immature Gran # 0.05 H (0.00-0.04) X 10*3/uL Neutrophils # 7.87 H (1.80-7.70) X 10*3/uL APTT 44.6 H (22.0-30.0) sec Chloride 110 H (96-109) mmol/L Carbon Dioxide 20.7 L (21.6-31.8) mmol/L Anion Gap 12.30 H (4.00-12.00) mmol/L Creatinine 0.4 L (0.6-1.5) mg/dL BUN/Creatinine Ratio 26.50 H (12.00-20.00) Ratio Calcium 8.6 L (8.7-10.3) mg/dL Total Protein 4.6 L (6.2-8.2) g/dL Albumin 3.1 L (3.8-4.9) g/dL Globulin 1.5 L (1.6-3.3) g/dL 01/02/25 Range/Units 05:47 WBC (4.50-10.00) X 10*3/uL RBC (4.10-5.20) X 10*6/uL Hgb (12.0-15.0) g/dL Hct (37.2-46.3) % Immature Gran # (0.00-0.04) X 10*3/uL Neutrophils # (1.80-7.70) X 10*3/uL APTT 56.2 H (22.0-30.0) sec Chloride (96-109) mmol/L Carbon Dioxide (21.6-31.8) mmol/L Anion Gap (4.00-12.00) mmol/L Creatinine (0.6-1.5) mg/dL BUN/Creatinine Ratio (12.00-20.00) Ratio Calcium (8.7-10.3) mg/dL Total Protein (6.2-8.2) g/dL Albumin (3.8-4.9) g/dL Globulin (1.6-3.3) g/dL Assessment and Plan Assessment: Left lower extremity pain Left lower extremity swelling/edema Left lower extremity DVT Left psoas muscle abscess Concerns for left hip periprosthetic infection Multiple medical comorbidities Plan: After discussing the case with both the internal medicine team and the infectious disease team we are recommending transfer to a tertiary care facility for further workup and possible surgical options for her left hip. I had a long discussion with the patient and the family today at bedside clearing up any confusion that may have been had over the last 24-48 hours. Recommending continuing with the IV antibiotic treatment at this time. Patient does have the drain present in the left anterior thigh for the psoas abscess m anthony. Pain control, oral and IV medication as needed DVT prophylaxis per primary medical service Other medical specialty recommendations appreciated Please contact our orthopedic service any further questions regarding this patient. Time with Patient: Less than 30
--- NOTE | 2025-01-02 12:24 | P.PN ---
Subjective Progress Note Date: 01/02/25 Principal diagnosis: Reason for follow-up is left iliopsoas abscess/septic hip Patient is a 69-year-old female with a past medical history significant for hypertension hyperlipidemia RA in this patient who did have bilateral knee and hip replacement and did have a fall about a week ago hitting her left side of the body patient did have a CT of the left hip suggestive of left iliopsoas abscess prompting this consultation.Patient is status post drainage of the left psoas abscess by IR on 01/01/2025 and placement of a drainage catheter On today's evaluation that is 01/02/2025,the patient denies any fever or any chills, patient is breathing comfortably on room air, the patient denies chest pain shortness of breath and no significant cough, patient denies abdominal pain, no nausea vomiting or diarrhea. Pain to the left hip Slight decrease in intensity. Patient white count is 10.01 creatinine 0.4 Objective - Vital Signs Vital signs: Vital Signs Temp 97.8 F 01/02/25 06:55 Pulse 72 01/02/25 06:55 Resp 17 01/02/25 06:55 BP 123/77 01/02/25 06:55 Pulse Ox 96 01/02/25 06:55 FiO2 Intake & Output 01/01/25 01/02/25 01/02/25 18:59 06:59 18:59 Intake Total 400 575.554 Output Total 200 35 Balance 200 540.554 Intake: Intake, IV Titration 250 215.554 Amount Heparin Sod,Pork in 0.45% 250 215.554 NaCl 25,000 unit In 0.45 % NaCl 1 250ml.bag @ 18 UNITS/KG/HR 17.962 mls/hr IV .[id number] [facility] Rx#: [id number] Oral 150 360 Output: Drainage 200 35 Left Abdomen 200 35 Other: # Voids 1 1 - Exam GENERAL DESCRIPTION: An elderly female lying in bed in no distress RESPIRATORY SYSTEM: Unlabored breathing , decreased breath sounds at bases HEART: S1 S2 regular rate and rhythm , ABDOMEN: Soft , no tenderness EXTREMITIES: No edema feet - Labs CBC & Chem 7: 01/02/25 03:03 01/02/25 03:03 Labs: Abnormal Lab Results - Last 24 Hours (Table) 01/01/25 01/02/25 01/02/25 Range/Units 23:19 03:03 03:03 WBC 10.01 H (4.50-10.00) X 10*3/uL RBC 3.70 L (4.10-5.20) X 10*6/uL Hgb 11.7 L (12.0-15.0) g/dL Hct 35.9 L (37.2-46.3) % Immature Gran # 0.05 H (0.00-0.04) X 10*3/uL Neutrophils # 7.87 H (1.80-7.70) X 10*3/uL APTT 44.6 H (22.0-30.0) sec Chloride 110 H (96-109) mmol/L Carbon Dioxide 20.7 L (21.6-31.8) mmol/L Anion Gap 12.30 H (4.00-12.00) mmol/L Creatinine 0.4 L (0.6-1.5) mg/dL BUN/Creatinine Ratio 26.50 H (12.00-20.00) Ratio Calcium 8.6 L (8.7-10.3) mg/dL Total Protein 4.6 L (6.2-8.2) g/dL Albumin 3.1 L (3.8-4.9) g/dL Globulin 1.5 L (1.6-3.3) g/dL 01/02/25 Range/Units 05:47 WBC (4.50-10.00) X 10*3/uL RBC (4.10-5.20) X 10*6/uL Hgb (12.0-15.0) g/dL Hct (37.2-46.3) % Immature Gran # (0.00-0.04) X 10*3/uL Neutrophils # (1.80-7.70) X 10*3/uL APTT 56.2 H (22.0-30.0) sec Chloride (96-109) mmol/L Carbon Dioxide (21.6-31.8) mmol/L Anion Gap (4.00-12.00) mmol/L Creatinine (0.6-1.5) mg/dL BUN/Creatinine Ratio (12.00-20.00) Ratio Calcium (8.7-10.3) mg/dL Total Protein (6.2-8.2) g/dL Albumin (3.8-4.9) g/dL Globulin (1.6-3.3) g/dL Assessment and Plan (1) Leukocytosis Current Visit: Yes Status: Acute Code(s): D72.829 - ELEVATED WHITE BLOOD C ELL COUNT, UNSPECIFIED SNOMED Code(s): 752346400 (2) Psoas abscess, left Current Visit: Yes Status: Acute Code(s): K68.12 - PSOAS MUSCLE ABSCESS SNOMED Code(s): 999949259 Plan: 1patient presented the hospital with worsening pain to the left hip area and anterior thigh in this patient who recently did have a fall with evidence of a left psoas fluid collection reported as an abscess with a question of abscess versus possible hematoma as the symptoms started after a fall patient not running any fever though did have elevated white count which may be increase in the case of hematoma as well however abscess not entirely excluded and will cover with antibiotic cover for both gram-positive as well as gram-negative 2patient is status post IR drainage of this fluid with concern for possible communicating with the hip joint orthopedics already on the case, WBC scan did not mention any uptake in the left hip, the patient is status post IR placement of a drainage catheter I did review the CT images with Dr. Rodriguez who did mention the abscesses around the prosthetic hip and likely septic arthritis, this information has been shared with the orthopedic PHOTOCOPY OPERATOR 3patient local culture currently growing Staphylococcus simulans which is oxacillin sensitive, 4patient is currently waiting for transfer to tertiary care for surgical management of the left hip septic arthritis patient did have multiple questions and concern those has been answered in layman terms Dictation was produced using [employer] dictation software. please excuse any grammatical, word or spelling errors. Time with Patient: Less than 30
--- NOTE | 2025-01-02 12:47 | P.PN ---
Subjective Progress Note Date: 01/02/25 SURGICAL PROGRESS NOTE CHIEF COMPLAINT: Fall with psoas fluid collection HISTORY OF PRESENT ILLNESS: Patient is status post drain placement by IR service for left psoas abscess. 235 mL purulent drainage noted. Patient does report her pain is decreasing. Afebrile. WBC is 10. Patient followed by infectious disease and orthopedic service. They are recommending transfer to tertiary care [place] due to concerns for left hip periprosthetic infection. PHYSICAL EXAM: VITAL SIGNS: Reviewed. GENERAL: Well-developed in no acute distress. HEENT: No sclera icterus. Extraocular movements grossly intact. Moist buccal mucosa. Head is atraumatic, normocephalic. ABDOMEN: Soft. Nondistended. Nontender. Obese Extremities: Left leg edema NEUROLOGIC: Alert and oriented. Cranial nerves II through XII grossly intact. ASSESSMENT: 1. Left psoas abscess 2. Left leg DVT 3. Fall PLAN: -Patient is in process for transfer to tertiary [facility] due to left hip periprosthetic infection -Patient status post drain placement -Antibiotics per ID service -Continue supportive care Physician Apartment Groundskeeper note has been reviewed by physician. Signing provider agrees with the documented findings, assessment, and plan of care. Objective - Vital Signs Vital signs: Vital Signs Temp 97.8 F 01/02/25 06:55 Pulse 72 01/02/25 06:55 Resp 17 01/02/25 08:26 BP 123/77 01/02/25 06:55 Pulse Ox 96 01/02/25 06:55 FiO2 Intake & Output 01/01/25 01/02/25 01/02/25 18:59 06:59 18:59 Intake Total 400 575.554 200 Output Total 200 35 Balance 200 540.554 200 Intake: Intake, IV Titration 250 215.554 Amount Heparin Sod,Pork in 0.45% 250 215.554 NaCl 25,000 unit In 0.45 % NaCl 1 250ml.bag @ 18 UNITS/KG/HR 17.962 mls/hr IV .[id number] [facility] Rx#: [id number] Oral 150 360 200 Output: Drainage 200 35 Left Abdomen 200 35 Other: Voiding Method Toilet # Voids 1 1 - Labs CBC & Chem 7: 01/02/25 03:03 01/02/25 03:03 Labs: Abnormal Lab Results - Last 24 Hours (Table) 01/01/25 01/02/25 01/02/25 Range/Units 23:19 03:03 03:03 WBC 10.01 H (4.50-10.00) X 10*3/uL RBC 3.70 L (4.10-5.20) X 10*6/uL Hgb 11.7 L (12.0-15.0) g/dL Hct 35.9 L (37.2-46.3) % Immature Gran # 0.05 H (0.00-0.04) X 10*3/uL Neutrophils # 7.87 H (1.80-7.70) X 10*3/uL APTT 44.6 H (22.0-30.0) sec Chloride 110 H (96-109) mmol/L Carbon Dioxide 20.7 L (21.6-31.8) mmol/L Anion Gap 12.30 H (4.00-12.00) mmol/L Creatinine 0.4 L (0.6-1.5) mg/dL BUN/Creatinine Ratio 26.50 H (12.00-20.00) Ratio Calcium 8.6 L (8.7-10.3) mg/dL Total Protein 4.6 L (6.2-8.2) g/dL Albumin 3.1 L (3.8-4.9) g/dL Globulin 1.5 L (1.6-3.3) g/dL 01/02/25 Range/Units 05:47 WBC (4.50-10.00) X 10*3/uL RBC (4.10-5.20) X 10*6/uL Hgb (12.0-15.0) g/dL Hct (37.2-46.3) % Immature Gran # (0.00-0.04) X 10*3/uL Neutrophils # (1.80-7.70) X 10*3/uL APTT 56.2 H (22.0-30.0) sec Chloride (96-109) mmol/L Carbon Dioxide (21.6-31.8) mmol/L Anion Gap (4.00-12.00) mmol/L Creatinine (0.6-1.5) mg/dL BUN/Creatinine Ratio (12.00-20.00) Ratio Calcium (8.7-10.3) mg/dL Total Protein (6.2-8.2) g/dL Albumin (3.8-4.9) g/dL Globulin (1.6-3.3) g/dL Assessment and Plan Assessment: defer ID for discharge planning around abx ok to dc from surgical standpoint Time with Patient: Less than 30
[2025-01-02 15:00] VITALS: BP 140/78; PULSE 75; TEMP 97.9
--- NOTE | 2025-01-02 17:54 | P.DS ---
Providers Date of admission: 12/26/24 14:29 Expected date of discharge: 01/02/25 Attending physician: Ernie Hernandez MD Consults: 12/26/24 13:51 Consult Physician Routine Consulting Provider: Oanh Puente Consult Reason/Comments: Septic hip Do you want consulting provider notified?: Yes 12/26/24 14:11 Consult Physician Urgent Consulting Provider: Tony Moreno Consult Reason/Comments: hip pain/psoas abscess Do you want consulting provider notified?: Yes 12/28/24 14:04 Consult Physician Routine Consulting Provider: Vanessa Pop Consult Reason/Comments: Left side PSOAS, abscess evaluation Do you want consulting provider notified?: Yes Primary care physician: [facility] Course: Final diagnosis Left hip pain status post fall 2 weeks ago with left intrapelvic psoas abscess, status post drainage with cultures showing Staphylococcus simulans with sensitivities, drainage catheter placed per IR into the left psoas abscess, Left lower extremity swelling and pain with positive DVT noted, continued on IV heparin Abnormal urinalysis with reported pain and discomfort with voiding, acute urinary tract infection ruled out, likely asymptomatic bacteriuria, cultures are negative Leukocytosis, possibly secondary to assessment #1, left psoas abscess History of hyperlipidemia Hypertension history History of rheumatoid arthritis Hypokalemia, being replaced and improved Morbid obesity with a BMI of 40.2 GI prophylaxis DVT prophylaxis on heparin Full code Discharge disposition Patient is being transferred in a stable condition with guarded prognosis to [facility] for further orthopedic evaluation of the left psoas abscess with intrapelvic involvement and concerns for left periprosthetic infection. Patient has been accepted by Dr. Rodriguez at [facility]. Patient will be going to room 482 bed 1. Total time taken is greater than 35 minutes. Hospital course This is a 69-year-old female who was recently admitted after a fall from a few weeks ago resulting in increasing pain and swelling of the left lower extremity. Patient noticed swelling at the left hip previous surgical site and began having extreme difficulties with ambulating and unable to walk and brought here for further evaluation. Patient was noted to have a left psoas abscess with intrapelvic involvement. Initial discussion with orthopedics and CAT scan were not able to completely exclude a possible periprosthetic infection. Initially IR took a sample of the area and was sent for analysis showing Staphylococcus simulans with infectious disease following. Patient continued to have significant swelling and patient was evaluated by interventional radiology again with a drainage catheter placed. Orthopedics reevaluated and clinically feel the patient needs higher level of care for evaluation in the event patient may require surgery of this periprosthetic left hip. Patient also developed a left lower extremity DVT and is maintained on IV heparin. Patient evaluated by vascular surgery and has cleared to initiate oral Eliquis although will keep on IV heparin for now in the event patient may require surgical intervention. Patient has been accepted and will be going to room 482 at [facility] today. Patient was agreeable to the transfer after further discussion with orthopedics. Infectious disease aware and agreeable with the transfer as well. Please refer to other consultation notes for further HPI. Currently no reports of chest pain, shortness of breath, or palpitations. Patient is afebrile. No reports of nausea or vomiting and patient is tolerating diet. Patient will be going to [facility] [place] today. Physical exam: Gen: This is a pleasant 69-year-old female who is awake, alert and oriented x 3, well-developed, elderly appearing, morbidly obese HEENT: Head is atraumatic, normocephalic. Pupils equal, round. Sclerae is anicteric. NECK: Supple. No JVD. No lymphadenopathy. No thyromegaly. LUNGS: Diminished breath sounds bilaterally otherwise clear to auscultation. No wheezes or rhonchi. No intercostal retractions. HEART: S1, S2 are muffled ABDOMEN: Soft. Obese bowel sounds are present. No masses. No tenderness. EXTREMITIES: No pedal edema. No calf tenderness. Left lower extremity swelling although is improved from previous and continues with compression stocking NEUROLOGICAL: Patient is awake, alert and oriented x3. Cranial nerves 2 through 12 are grossly intact. Diffusely weak Please refer to medication reconciliation sheet for a list of medications. The impression and plan of care has been dictated by Naye Meng, Nurse Practitioner as directed. Dr. Eron MD I have performed a history and examination and MDM of this patient, discussed the same with the dictator, and agree with the dictator's assessment and plan as written ,documented as a scribe. Based on total visit time, I have performed more than 50% of the visit. Patient Condition at Discharge: Fair Plan - Discharge Summary Discharge Rx Participant: Yes New Discharge Prescriptions: No Action Losartan-Hctz 50-12.5 mg [Hyzaar 50-12.5] 0.5 tab PO DAILY Actemra Infusion 8mg/Kg 1 dose IV Q28D predniSONE 2.5 mg PO DAILY PRN PRN Reason: flare ups Ibuprofen [Motrin] 600 mg PO Q6H PRN PRN Reason: Pain Discharge Medication List Actemra Infusion 8mg/Kg 1 dose IV Q28D 12/26/24 [History] Ibuprofen [Motrin] 600 mg PO Q6H PRN 12/26/24 [History] Losartan-Hctz 50-12.5 mg [Hyzaar 50-12.5] 0.5 tab PO DAILY 12/26/24 [History] predniSONE 2.5 mg PO DAILY PRN 12/26/24 [History] Follow up Appointment(s)/Referral(s): Richard Rose MD [Primary Care Provider] - 1-2 days Activity/Diet/Wound Care/Special Instructions: Patient will be transferred to [facility] for further evaluation and has been accepted by Dr. Rodriguez Continue IV heparin for now Continue IV cefazolin Discharge Disposition: OTHER INSTITUTION NOT DEFINED
== END 2025-01-02 20:13 | disposition short-term general hospital (02) | DRG 981 ==
LOC: EC 09:45 → 4SSUR 14:29
PROVIDERS: ADMIT Internal Medicine; ATTEND Internal Medicine
PROC: 0K9P3ZX Drainage of Left Hip Muscle, Percutaneous Approach, Diagnostic (ICD-10-PCS; principal; 2024-12-27)
PROC: 05HA33Z Insertion of Infusion Device into Left Brachial Vein, Percutaneous Approach (ICD-10-PCS; 2024-12-30)
DX: I82.412 Acute embolism and thrombosis of left femoral vein (principal); K68.12 Psoas muscle abscess; M00.052 Staphylococcal arthritis, left hip; M06.9 Rheumatoid arthritis, unspecified; E66.01 Morbid (severe) obesity due to excess calories; I10 Essential (primary) hypertension; Z68.41 Body mass index [BMI] 40.0-44.9, adult; S00.83XA Contusion of other part of head, initial encounter; T84.52XS Infection and inflammatory reaction due to internal left hip prosthesis, sequela; B95.7 Other staphylococcus as the cause of diseases classified elsewhere; W19.XXXS Unspecified fall, sequela; E78.5 Hyperlipidemia, unspecified; E87.6 Hypokalemia; R31.0 Gross hematuria; Z74.01 Bed confinement status; Z87.442 Personal history of urinary calculi; Z96.653 Presence of artificial knee joint, bilateral; Z96.643 Presence of artificial hip joint, bilateral
CPT/HCPCS: 36410; 36415; 73502; 75989; 76937; 78306; 80048; 80053; 80202; 81001; 82565; 83605; 83735; 84132; 85025; 85027; 85610; 85652; 85730; 86140; 87040; 87070; 87077; 87086; 87186; 87205; 89050; 96365; 96366; 96375; 99291